=== PATIENT | male | born 1935 | race Caucasian/White ===

== ENCOUNTER 2017-10-07 16:56 | Inpatient (IN) | payer BC ==
[2017-10-07] MEDS ORDERED: ONDANSETRON PF 4 MG/2 ML VIAL. (17:19)
[2017-10-07] MEDS: ONDANSETRON PF 4 MG/2 ML VIAL. IV ×2 (17:34→18:00)
[2017-10-07 17:54] LABS: ADD MAN DIFF? NO
[2017-10-07 17:56] LABS: BASO # 0.1 x10^3/uL (0.0-0.2); BASO % 1 % (0-3); EOS % 0 % (0-3); HEMATOCRIT 43.1 % (39.0-53.0); HEMOGLOBIN 14.3 g/dL (13.0-17.5); LYMPH # 1.2 x10^3/uL (1.0-4.8); LYMPH % 9 % (24-48); MEAN CORPUSCULAR HEMOGLOBIN 29 pg (25-35); MEAN CORPUSCULAR HGB CONC 33 g/dL (31-37); MEAN CORPUSCULAR VOLUME 87 fL (79-100); MONO # 0.8 x10^3/uL (0.0-1.1); MONO % 6 % (0-9); NEUT # 11.4 x10^3uL (1.8-7.7); NEUT % 84 % (31-73); PLATELET COUNT 222 x10^3/uL (140-400); RED BLOOD COUNT 4.95 x10^6/uL (4.30-5.70); RED CELL DISTRIBUTION WIDTH 14.9 % (11.5-14.5); WHITE BLOOD COUNT 13.5 x10^3/uL (4.0-11.0)
[2017-10-07] MEDS: FAMOTIDINE 20 MG/2 ML VIAL IVP (18:05)
[2017-10-07 18:06] LABS: ANION GAP 15 (6-14); BLOOD UREA NITROGEN 22 mg/dL (8-26); BUN/CREATININE RATIO 22 (6-20); CALCIUM 9.5 mg/dL (8.5-10.1); CARBON DIOXIDE 25 mmol/L (21-32); CHLORIDE 101 mmol/L (98-107); GFR 71.2; GLUCOSE 206 mg/dL (70-99); POTASSIUM 3.4 mmol/L (3.5-5.1); SODIUM 141 mmol/L (136-145)
[2017-10-07] MEDS: IV NORMAL SALINE 1000ML BAG 1,000 ML IV ×2 (18:06→19:57)
[2017-10-07] MEDS: fentaNYL PF VIAL 100 MCG/2 ML VIAL IV ×3 (18:07→23:12)
[2017-10-07 18:12] LABS: ALBUMIN 3.7 g/dL (3.4-5.0); ALBUMIN/GLOBULIN RATIO 0.8 (1.0-1.7); ALK PHOS 88 U/L (46-116); ALT (SGPT) 23 U/L (16-63); AST (SGOT) 18 U/L (15-37); LIPASE 34 U/L (73-393); TOTAL BILIRUBIN 0.3 mg/dL (0.2-1.0); TOTAL PROTEIN 8.3 g/dL (6.4-8.2)
[2017-10-07 18:15] LABS: LACTIC ACID 2.2 mmol/L (0.4-2.0)
[2017-10-07] MEDS: IOHEXOL 300 MG/ML 100ML VIAL. IV (19:15)
[2017-10-07 20:23] LABS: CLARITY,URINE CLOUDY; COLOR,URINE GREEN; GLUCOSE,URINE NEGATIVE (NEG); NITRITE,URINE NEGATIVE (NEG); PH,URINE 8.5; PROTEIN,URINE >=300 mg/dL (NEG-TRACE)
[2017-10-07 20:26] LABS: BACTERIA,URINE MANY /HPF (0-FEW)
[2017-10-07 20:27] LABS: BILIRUBIN,URINE NEGATIVE (NEG)
[2017-10-07] MEDS ORDERED: PIP/TAZO PER PHARMACY MC (21:00)
[2017-10-07] MEDS ORDERED: fentaNYL PF VIAL 100 MCG/2 ML VIAL IV (21:00)
[2017-10-07] MEDS ORDERED: ONDANSETRON PF 4 MG/2 ML VIAL. IV (21:00)
[2017-10-07] MEDS ORDERED: ACETAMINOPHEN 325 MG TABLET. PO (21:00)
[2017-10-07] MEDS: PIPERACILLIN/TAZOBACTAM 4.5 GM in IV NORMAL SALINE 100ML 100 ML IV (21:44)
[2017-10-07 22:05] LABS: LACTIC ACID 1.5 mmol/L (0.4-2.0)
[2017-10-08] MEDS: PIPERACILLIN/TAZOBACTAM 3.375 GM in IV NORMAL SALINE 50ML 50 ML IV ×3 (05:35→18:27)
[2017-10-08 05:50] LABS: ADD MAN DIFF? NO
[2017-10-08 06:11] LABS: BASO % 0 % (0-3); EOS % 0 % (0-3); HEMATOCRIT 42.6 % (39.0-53.0); LYMPH # 0.7 x10^3/uL (1.0-4.8); LYMPH % 13 % (24-48); MEAN CORPUSCULAR HEMOGLOBIN 29 pg (25-35); MEAN CORPUSCULAR HGB CONC 33 g/dL (31-37); MEAN CORPUSCULAR VOLUME 89 fL (79-100); MONO # 0.7 x10^3/uL (0.0-1.1); MONO % 14 % (0-9); NEUT # 4.1 x10^3uL (1.8-7.7); NEUT % 74 % (31-73); PLATELET COUNT 138 x10^3/uL (140-400); RED BLOOD COUNT 4.79 x10^6/uL (4.30-5.70); RED CELL DISTRIBUTION WIDTH 14.9 % (11.5-14.5); WHITE BLOOD COUNT 5.5 x10^3/uL (4.0-11.0)
[2017-10-08 08:33] LABS: ANION GAP 10 (6-14); BLOOD UREA NITROGEN 25 mg/dL (8-26); CALCIUM 8.8 mg/dL (8.5-10.1); CARBON DIOXIDE 28 mmol/L (21-32); CHLORIDE 104 mmol/L (98-107); GFR 71.2; GLUCOSE 183 mg/dL (70-99); POTASSIUM 3.6 mmol/L (3.5-5.1); SODIUM 142 mmol/L (136-145)
[2017-10-08] MEDS: POTASSIUM CL 20MEQ-0.45% NACL 1,000 ML IV (10:15)
[2017-10-08] MEDS ORDERED: ONDANSETRON PF 4 MG/2 ML VIAL. IV (10:15)
[2017-10-08] MEDS: fentaNYL PF VIAL 100 MCG/2 ML VIAL IV (13:55)
[2017-10-08] MEDS: FAMOTIDINE 20 MG/2 ML VIAL IVP (20:29)
[2017-10-09] MEDS: PIPERACILLIN/TAZOBACTAM 3.375 GM in IV NORMAL SALINE 50ML 50 ML IV ×3 (00:17→11:59)
[2017-10-09 07:33] LABS: POC GLUCOSE 128 mg/dL (70-99)
[2017-10-09 11:19] LABS: POC GLUCOSE 183 mg/dL (70-99)
[2017-10-09 16:31] LABS: POC GLUCOSE 166 mg/dL (70-99)
== END 2017-10-09 17:00 | disposition home or self-care (01) | DRG 872 ==
LOC: ER 16:56 → 5 SOUTH 20:08
DX: A41.9 Sepsis, unspecified organism (principal); K56.609 Unspecified intestinal obstruction, unspecified as to partial versus complete obstruction; E11.65 Type 2 diabetes mellitus with hyperglycemia; N39.0 Urinary tract infection, site not specified; Z68.41 Body mass index [BMI] 40.0-44.9, adult; R65.20 Severe sepsis without septic shock; I10 Essential (primary) hypertension; I25.10 Atherosclerotic heart disease of native coronary artery without angina pectoris; Z82.49 Family history of ischemic heart disease and other diseases of the circulatory system; Z85.038 Personal history of other malignant neoplasm of large intestine; Z85.46 Personal history of malignant neoplasm of prostate; E66.9 Obesity, unspecified; Z60.2 Problems related to living alone
CPT/HCPCS: 36415; 74022; 74177; 80048; 80053; 81001; 82962; 83605; 83690; 85025; 87040; 87086; 87186; 93005; J2405; J2543; J3010; J7030; Q9967; S0028

== ENCOUNTER 2017-10-14 02:19 | Inpatient (IN) | payer BC ==
[2017-10-14 03:19] LABS: ADD MAN DIFF? NO
[2017-10-14 03:22] LABS: BASO # 0.1 x10^3/uL (0.0-0.2); BASO % 1 % (0-3); EOS # 0.2 x10^3/uL (0.0-0.7); EOS % 2 % (0-3); HEMATOCRIT 39.7 % (39.0-53.0); LYMPH # 1.7 x10^3/uL (1.0-4.8); LYMPH % 15 % (24-48); MEAN CORPUSCULAR HEMOGLOBIN 29 pg (25-35); MEAN CORPUSCULAR HGB CONC 33 g/dL (31-37); MEAN CORPUSCULAR VOLUME 87 fL (79-100); MONO # 0.9 x10^3/uL (0.0-1.1); MONO % 8 % (0-9); NEUT # 8.6 x10^3uL (1.8-7.7); NEUT % 75 % (31-73); PLATELET COUNT 202 x10^3/uL (140-400); RED BLOOD COUNT 4.54 x10^6/uL (4.30-5.70); WHITE BLOOD COUNT 11.4 x10^3/uL (4.0-11.0)
[2017-10-14] MEDS ORDERED: ONDANSETRON PF 4 MG/2 ML VIAL. (03:34)
[2017-10-14 03:35] LABS: ANION GAP 11 (6-14); BLOOD UREA NITROGEN 14 mg/dL (8-26); BUN/CREATININE RATIO 18 (6-20); CARBON DIOXIDE 26 mmol/L (21-32); CHLORIDE 102 mmol/L (98-107); CREATININE 0.8 mg/dL (0.7-1.3); GFR 92.1; GLUCOSE 189 mg/dL (70-99); POTASSIUM 3.8 mmol/L (3.5-5.1); SODIUM 139 mmol/L (136-145)
[2017-10-14] MEDS: MORPHINE SULFATE 10 MG/ML VIAL. IV (03:37)
[2017-10-14] MEDS: ONDANSETRON PF 4 MG/2 ML VIAL. IV ×3 (03:38→21:13)
[2017-10-14 03:41] LABS: LACTIC ACID 1.1 mmol/L (0.4-2.0)
[2017-10-14 03:48] LABS: ALBUMIN 3.2 g/dL (3.4-5.0); ALBUMIN/GLOBULIN RATIO 0.8 (1.0-1.7); ALK PHOS 84 U/L (46-116); ALT (SGPT) 24 U/L (16-63); AST (SGOT) 23 U/L (15-37); LIPASE 35 U/L (73-393); TOTAL BILIRUBIN 0.3 mg/dL (0.2-1.0); TOTAL PROTEIN 7.4 g/dL (6.4-8.2)
[2017-10-14 04:48] LABS: BILIRUBIN,URINE NEGATIVE (NEG); CLARITY,URINE CLEAR; COLOR,URINE YELLOW; GLUCOSE,URINE NEGATIVE (NEG); NITRITE,URINE NEGATIVE (NEG); PROTEIN,URINE NEGATIVE (NEG-TRACE)
[2017-10-14 04:56] LABS: BACTERIA,URINE FEW /HPF (0-FEW); RBC,URINE 0 /HPF (0-2)
[2017-10-14 04:57] LABS: SQUAMOUS EPITHELIAL CELL,UR OCC /LPF
[2017-10-14] MEDS: IV NORMAL SALINE 1000ML BAG 1,000 ML IV (05:45)
[2017-10-14 05:50] LABS: POC GLUCOSE 173 mg/dL (70-99)
[2017-10-14] MEDS: MORPHINE SULFATE 4 MG/ML DISP.SYRIN. IV ×4 (08:08→21:14)
[2017-10-15] MEDS: hydrALAZINE 20 MG/ML VIAL. IVP (00:09)
[2017-10-15 04:13] LABS: ADD MAN DIFF? NO
[2017-10-15 04:28] LABS: BASO % 0 % (0-3); EOS # 0.1 x10^3/uL (0.0-0.7); EOS % 1 % (0-3); HEMATOCRIT 37.9 % (39.0-53.0); HEMOGLOBIN 12.5 g/dL (13.0-17.5); LYMPH # 1.1 x10^3/uL (1.0-4.8); LYMPH % 14 % (24-48); MEAN CORPUSCULAR HEMOGLOBIN 29 pg (25-35); MEAN CORPUSCULAR HGB CONC 33 g/dL (31-37); MEAN CORPUSCULAR VOLUME 88 fL (79-100); MONO # 0.9 x10^3/uL (0.0-1.1); MONO % 12 % (0-9); NEUT # 5.5 x10^3uL (1.8-7.7); NEUT % 72 % (31-73); PLATELET COUNT 177 x10^3/uL (140-400); RED BLOOD COUNT 4.33 x10^6/uL (4.30-5.70); RED CELL DISTRIBUTION WIDTH 14.9 % (11.5-14.5); WHITE BLOOD COUNT 7.6 x10^3/uL (4.0-11.0)
[2017-10-15 04:35] LABS: ANION GAP 4 (6-14); BLOOD UREA NITROGEN 14 mg/dL (8-26); CALCIUM 8.7 mg/dL (8.5-10.1); CARBON DIOXIDE 29 mmol/L (21-32); CHLORIDE 103 mmol/L (98-107); CREATININE 0.8 mg/dL (0.7-1.3); GFR 92.1; GLUCOSE 183 mg/dL (70-99); POTASSIUM 3.6 mmol/L (3.5-5.1); SODIUM 136 mmol/L (136-145)
[2017-10-15] MEDS: MORPHINE SULFATE 4 MG/ML DISP.SYRIN. IV ×3 (04:39→16:54)
[2017-10-15] MEDS: FAMOTIDINE 20 MG/2 ML VIAL IVP ×2 (06:23→23:10)
[2017-10-15] MEDS: IV NORMAL SALINE 1000ML BAG 1,000 ML IV (16:48)
[2017-10-16] MEDS: MORPHINE SULFATE 4 MG/ML DISP.SYRIN. IV ×2 (02:04→07:54)
[2017-10-16] MEDS: IV NORMAL SALINE 1000ML BAG 1,000 ML IV ×3 (03:00→23:00)
[2017-10-16] MEDS: FAMOTIDINE 20 MG/2 ML VIAL IVP ×2 (08:40→21:00)
[2017-10-16] MEDS: ENOXAPARIN 40 MG/0.4 ML SYRINGE. SQ (08:40)
[2017-10-16] MEDS ORDERED: CONTRAST GIVEN MC (09:30)
[2017-10-16] MEDS: IOHEXOL 300 MG/ML 100ML VIAL. PO (10:57)
[2017-10-17] MEDS: FAMOTIDINE 20 MG/2 ML VIAL IVP ×2 (08:20→21:04)
[2017-10-17] MEDS: ENOXAPARIN 40 MG/0.4 ML SYRINGE. SQ ×2 (08:21→21:03)
[2017-10-17] MEDS: IV NORMAL SALINE 1000ML BAG 1,000 ML IV ×2 (08:22→15:11)
[2017-10-17 10:30] LABS: ANION GAP 11 (6-14); BLOOD UREA NITROGEN 24 mg/dL (8-26); CALCIUM 8.7 mg/dL (8.5-10.1); CARBON DIOXIDE 28 mmol/L (21-32); CHLORIDE 101 mmol/L (98-107); CREATININE 0.9 mg/dL (0.7-1.3); GFR 80.4; GLUCOSE 159 mg/dL (70-99); POTASSIUM 3.1 mmol/L (3.5-5.1); SODIUM 140 mmol/L (136-145)
[2017-10-17] MEDS: MORPHINE SULFATE 4 MG/ML DISP.SYRIN. IV (15:21)
[2017-10-18] MEDS: IV NORMAL SALINE 1000ML BAG 1,000 ML IV (03:10)
[2017-10-18] MEDS: FAMOTIDINE 20 MG/2 ML VIAL IVP ×2 (08:13→20:16)
[2017-10-18] MEDS: ENOXAPARIN 40 MG/0.4 ML SYRINGE. SQ ×2 (08:13→20:16)
[2017-10-18] MEDS: MORPHINE SULFATE 4 MG/ML DISP.SYRIN. IV (08:13)
[2017-10-18 08:27] LABS: ANION GAP 14 (6-14); BLOOD UREA NITROGEN 24 mg/dL (8-26); CALCIUM 8.4 mg/dL (8.5-10.1); CARBON DIOXIDE 26 mmol/L (21-32); CHLORIDE 105 mmol/L (98-107); CREATININE 0.9 mg/dL (0.7-1.3); GFR 80.4; GLUCOSE 143 mg/dL (70-99); POTASSIUM 3.2 mmol/L (3.5-5.1); SODIUM 145 mmol/L (136-145)
[2017-10-18] MEDS: POTASSIUM CL 30MEQ D5-0.45NACL 1,000 ML IV (12:17)
[2017-10-18 15:23] LABS: ADD MAN DIFF? NO
[2017-10-18 15:30] LABS: BASO # 0.1 x10^3/uL (0.0-0.2); BASO % 1 % (0-3); EOS # 0.1 x10^3/uL (0.0-0.7); EOS % 1 % (0-3); HEMATOCRIT 36.4 % (39.0-53.0); HEMOGLOBIN 12.1 g/dL (13.0-17.5); LYMPH # 1.5 x10^3/uL (1.0-4.8); LYMPH % 13 % (24-48); MEAN CORPUSCULAR HEMOGLOBIN 29 pg (25-35); MEAN CORPUSCULAR HGB CONC 33 g/dL (31-37); MEAN CORPUSCULAR VOLUME 87 fL (79-100); MONO # 0.8 x10^3/uL (0.0-1.1); MONO % 7 % (0-9); NEUT # 8.8 x10^3uL (1.8-7.7); NEUT % 78 % (31-73); PLATELET COUNT 203 x10^3/uL (140-400); RED CELL DISTRIBUTION WIDTH 14.3 % (11.5-14.5); WHITE BLOOD COUNT 11.4 x10^3/uL (4.0-11.0)
[2017-10-18 15:35] LABS: C-REACTIVE PROTEIN 103.6 mg/L (0-3.3)
[2017-10-18 16:46] LABS: SEDIMENTATION RATE 95 (0-15)
[2017-10-19] MEDS: POTASSIUM CL 30MEQ D5-0.45NACL 1,000 ML IV ×2 (03:18→15:46)
[2017-10-19 04:16] LABS: ADD MAN DIFF? NO
[2017-10-19 05:10] LABS: BASO % 1 % (0-3); EOS # 0.3 x10^3/uL (0.0-0.7); EOS % 3 % (0-3); HEMATOCRIT 35.2 % (39.0-53.0); HEMOGLOBIN 11.5 g/dL (13.0-17.5); LYMPH # 1.5 x10^3/uL (1.0-4.8); LYMPH % 18 % (24-48); MEAN CORPUSCULAR HEMOGLOBIN 29 pg (25-35); MEAN CORPUSCULAR HGB CONC 33 g/dL (31-37); MEAN CORPUSCULAR VOLUME 87 fL (79-100); MONO # 0.8 x10^3/uL (0.0-1.1); MONO % 9 % (0-9); NEUT # 5.7 x10^3uL (1.8-7.7); NEUT % 69 % (31-73); PLATELET COUNT 191 x10^3/uL (140-400); RED BLOOD COUNT 4.02 x10^6/uL (4.30-5.70); RED CELL DISTRIBUTION WIDTH 14.1 % (11.5-14.5); WHITE BLOOD COUNT 8.3 x10^3/uL (4.0-11.0)
[2017-10-19 05:36] LABS: ANION GAP 9 (6-14); BLOOD UREA NITROGEN 19 mg/dL (8-26); CARBON DIOXIDE 27 mmol/L (21-32); CHLORIDE 107 mmol/L (98-107); CREATININE 0.8 mg/dL (0.7-1.3); GFR 92.1; GLUCOSE 168 mg/dL (70-99); SODIUM 143 mmol/L (136-145)
[2017-10-19 05:41] LABS: POTASSIUM 2.9 mmol/L (3.5-5.1)
[2017-10-19] MEDS: POTASSIUM CL 40MEQ IN 0.9%NACL 1,000 ML IV (07:29)
[2017-10-19] MEDS: FAMOTIDINE 20 MG/2 ML VIAL IVP ×2 (08:28→20:50)
[2017-10-19] MEDS: ENOXAPARIN 40 MG/0.4 ML SYRINGE. SQ ×2 (08:28→20:50)
[2017-10-20] MEDS: POTASSIUM CL 30MEQ D5-0.45NACL 1,000 ML IV ×2 (04:30→11:41)
[2017-10-20 05:09] LABS: ADD MAN DIFF? NO
[2017-10-20 05:18] LABS: BASO # 0.1 x10^3/uL (0.0-0.2); BASO % 1 % (0-3); EOS # 0.5 x10^3/uL (0.0-0.7); EOS % 7 % (0-3); HEMATOCRIT 32.6 % (39.0-53.0); HEMOGLOBIN 10.8 g/dL (13.0-17.5); LYMPH # 1.5 x10^3/uL (1.0-4.8); LYMPH % 21 % (24-48); MEAN CORPUSCULAR HEMOGLOBIN 29 pg (25-35); MEAN CORPUSCULAR HGB CONC 33 g/dL (31-37); MEAN CORPUSCULAR VOLUME 87 fL (79-100); MONO # 0.7 x10^3/uL (0.0-1.1); MONO % 9 % (0-9); NEUT # 4.7 x10^3uL (1.8-7.7); NEUT % 63 % (31-73); PLATELET COUNT 190 x10^3/uL (140-400); RED BLOOD COUNT 3.74 x10^6/uL (4.30-5.70); RED CELL DISTRIBUTION WIDTH 14.1 % (11.5-14.5); WHITE BLOOD COUNT 7.4 x10^3/uL (4.0-11.0)
[2017-10-20 05:45] LABS: ALBUMIN 2.2 g/dL (3.4-5.0); ALBUMIN/GLOBULIN RATIO 0.6 (1.0-1.7); ALK PHOS 62 U/L (46-116); ALT (SGPT) 25 U/L (16-63); ANION GAP 7 (6-14); AST (SGOT) 20 U/L (15-37); BLOOD UREA NITROGEN 13 mg/dL (8-26); BUN/CREATININE RATIO 19 (6-20); CARBON DIOXIDE 28 mmol/L (21-32); CHLORIDE 106 mmol/L (98-107); CREATININE 0.7 mg/dL (0.7-1.3); GFR 107.4; GLUCOSE 154 mg/dL (70-99); POTASSIUM 3.3 mmol/L (3.5-5.1); SODIUM 141 mmol/L (136-145); TOTAL BILIRUBIN 0.4 mg/dL (0.2-1.0); TOTAL PROTEIN 6.1 g/dL (6.4-8.2)
[2017-10-20] MEDS: FAMOTIDINE 20 MG/2 ML VIAL IVP ×2 (08:40→21:00)
[2017-10-20] MEDS: ENOXAPARIN 40 MG/0.4 ML SYRINGE. SQ ×2 (08:40→22:11)
[2017-10-20] MEDS ORDERED: ELECTROLYTE (NON-ICU) PROTOCOL MC (13:30)
[2017-10-20] MEDS: FAMOTIDINE 20 MG TABLET. PO (22:11)
[2017-10-21 05:06] LABS: ADD MAN DIFF? NO
[2017-10-21 05:13] LABS: BASO % 1 % (0-3); EOS # 0.4 x10^3/uL (0.0-0.7); EOS % 7 % (0-3); HEMATOCRIT 34.2 % (39.0-53.0); HEMOGLOBIN 11.4 g/dL (13.0-17.5); LYMPH # 1.5 x10^3/uL (1.0-4.8); LYMPH % 27 % (24-48); MEAN CORPUSCULAR HEMOGLOBIN 29 pg (25-35); MEAN CORPUSCULAR HGB CONC 33 g/dL (31-37); MEAN CORPUSCULAR VOLUME 87 fL (79-100); MONO # 0.6 x10^3/uL (0.0-1.1); MONO % 10 % (0-9); NEUT # 3.3 x10^3uL (1.8-7.7); NEUT % 57 % (31-73); PLATELET COUNT 200 x10^3/uL (140-400); RED BLOOD COUNT 3.95 x10^6/uL (4.30-5.70); RED CELL DISTRIBUTION WIDTH 13.9 % (11.5-14.5); WHITE BLOOD COUNT 5.8 x10^3/uL (4.0-11.0)
[2017-10-21 05:30] LABS: ANION GAP 8 (6-14); BLOOD UREA NITROGEN 7 mg/dL (8-26); CALCIUM 8.2 mg/dL (8.5-10.1); CARBON DIOXIDE 28 mmol/L (21-32); CHLORIDE 107 mmol/L (98-107); CREATININE 0.7 mg/dL (0.7-1.3); GFR 107.4; GLUCOSE 156 mg/dL (70-99); POTASSIUM 3.6 mmol/L (3.5-5.1); SODIUM 143 mmol/L (136-145)
[2017-10-21] MEDS: FAMOTIDINE 20 MG TABLET. PO ×2 (09:10→20:38)
[2017-10-21] MEDS: ENOXAPARIN 40 MG/0.4 ML SYRINGE. SQ ×2 (09:10→20:38)
[2017-10-21] MEDS: POTASSIUM CHLORIDE 20 MEQ TABLET.ER. PO ×2 (09:10→17:26)
[2017-10-21] MEDS: POLYETHYLENE GLYCOL 3350 17 GM PACKET. PO (10:23)
[2017-10-21] MEDS: hydrALAZINE 25 MG TABLET PO (20:38)
[2017-10-22] MEDS: FAMOTIDINE 20 MG TABLET. PO (09:10)
[2017-10-22] MEDS: POTASSIUM CHLORIDE 20 MEQ TABLET.ER. PO (09:10)
[2017-10-22] MEDS: ATORVASTATIN CALCIUM 20 MG TABLET PO (09:11)
[2017-10-22] MEDS: LISINOPRIL 20 MG TABLET PO (09:11)
[2017-10-22] MEDS: glipiZIDE 5 MG TABLET PO (09:12)
[2017-10-22] MEDS: METOPROLOL SUCC 24HR ER 50 MG TAB.ER.24H. PO (09:12)
[2017-10-22] MEDS: hydrALAZINE 25 MG TABLET PO (09:12)
[2017-10-22] MEDS: PIOGLITAZONE 15 MG TABLET. PO (09:12)
[2017-10-22] MEDS: ENOXAPARIN 40 MG/0.4 ML SYRINGE. SQ (09:13)
[2017-10-22] MEDS: POLYETHYLENE GLYCOL 3350 17 GM PACKET. PO (09:19)
== END 2017-10-22 14:10 | disposition home health service (06) | DRG 389 ==
LOC: ER 02:19 → 4 NORTH 04:11
PROC: 0D9670Z Drainage of Stomach with Drainage Device, Via Natural or Artificial Opening (ICD-10-PCS; principal; 2017-10-15)
DX: K56.600 Partial intestinal obstruction, unspecified as to cause (principal); Z68.41 Body mass index [BMI] 40.0-44.9, adult; C61 Malignant neoplasm of prostate; E11.9 Type 2 diabetes mellitus without complications; N30.90 Cystitis, unspecified without hematuria; J98.11 Atelectasis; M79.89 Other specified soft tissue disorders; I25.10 Atherosclerotic heart disease of native coronary artery without angina pectoris; N40.0 Benign prostatic hyperplasia without lower urinary tract symptoms; M79.642 Pain in left hand; E66.9 Obesity, unspecified; E78.5 Hyperlipidemia, unspecified; J45.909 Unspecified asthma, uncomplicated; M15.9 Polyosteoarthritis, unspecified; F80.81 Childhood onset fluency disorder; I10 Essential (primary) hypertension; Z92.21 Personal history of antineoplastic chemotherapy; Z85.46 Personal history of malignant neoplasm of prostate; Z82.49 Family history of ischemic heart disease and other diseases of the circulatory system; Z80.42 Family history of malignant neoplasm of prostate; Z90.49 Acquired absence of other specified parts of digestive tract; Z90.79 Acquired absence of other genital organ(s); Z85.038 Personal history of other malignant neoplasm of large intestine
CPT/HCPCS: 36415; 71045; 73120; 74018; 74022; 74176; 74250; 80048; 80053; 81001; 82962; 83605; 83690; 85025; 85651; 86140; 96374; 96375; 97116-GP; 97162-GP; 97166-GO; 97535-GO; 99285; 99285-25; J0360; J1650; J2270; J2405; J3480; J7030; Q9967; S0028

== ENCOUNTER 2018-09-19 13:42 | Emergency (ER) | payer BC ==
[~2018-09-19] VITALS: Ht 165.1 cm; Wt 127.0 kg
[~2018-09-19 13:42] MED LIST: ACET325T9 PO; ASPI325T8 PO; ATOR20TA58 PO; CIPR500T94 PO; EZET10TA18 PO; GLIP10TA13 PO; GLIP5TAB10 PO; HYDR-2868 PO; INSU100V13 SQ; LEUP30SY IM; LINA5TAB PO; LISI-130 PO; LOSA100T14 PO; METF10007 PO; METO-247 PO; METO-269 PO; PANT40TA77 PO; PIOG15TA42 PO; TAMS0.4C97 PO; TERA5CAP3 PO
[2018-09-19 13:52] VITALS: BP 140/44
[2018-09-19 15:16] LABS: BILIRUBIN,URINE NEGATIVE (NEG); CLARITY,URINE CLOUDY; COLOR,URINE YELLOW; NITRITE,URINE NEGATIVE (NEG); PROTEIN,URINE >=300 mg/dL (NEG-TRACE)
[2018-09-19 15:21] LABS: BACTERIA,URINE FEW /HPF (0-FEW); RBC,URINE >40 /HPF (0-2); WBC,URINE >40 /HPF (0-4)
[2018-09-19] MEDS ORDERED: CEPH-264 PO (15:40)
--- NOTE | 2018-09-19 15:41 | PHYS DOC ---
Past Medical History Past Medical History: Diabetes-Type II, Heart Disease, Hypertension, Other Additional Past Medical Histor: prostate CA with chemotherapy treatments about 4 years Past Surgical History: Other Additional Past Surgical Histo: Prostate CA surgery Alcohol Use: None Drug Use: None Adult General Chief Complaint Chief Complaint: URINARY RETENTION HPI HPI 83 y/o male presents with report of suprapubic tenderness which has been ongoing today. Hx of prior prostate cancer surgery. Patient has chronic suprapubic indwelling catheter. Reports that the catheter isn't draining. Denies fever/chills. Denies trauma. Denies hematuria. Patient is to follow up with Urology on Thursday to have catheter replaced. Review of Systems Review of Systems Constitutional: Denies fever or chills [] Eyes: Denies change in visual acuity, redness, or eye pain [] HENT: Denies nasal congestion or sore throat [] Respiratory: Denies cough or shortness of breath [] Cardiovascular: Denies chest pain or palpitation GI: Reports suprapubic abdominal pain/pressure; denies nausea, vomiting, or diarrhea [] : Reports decreased urination and some dysuria; denies hematuria [] Musculoskeletal: Denies back pain or joint pain [] Integument: Denies rash or skin lesions [] Neurologic: Denies headache, focal weakness or sensory changes [] Complete systems were reviewed and found to be within normal limits, except as documented in this note. Current Medications Current Medications Current Medications Medications (Trade) Dose Ordered Sig/Althea Start Time Stop Time Status Last Admin Dose Admin Cephalexin HCl (Keflex) 500 mg 1X ONCE 09/19/18 16:00 09/19/18 16:00 DC 09/19/18 15:48 500 MG Allergies Allergies Allergies Coded Allergies Type Severity Reaction Last Updated Verified No Known Drug Allergies 10/07/17 No Physical Exam Physical Exam Constitutional: Well developed, well nourished, uncomfortable, non-toxic appearance. [] HENT: Normocephalic, atraumatic, oropharynx moist Eyes: Conjunctiva normal, no discharge. [] Neck: Normal range of motion, no tenderness, supple[] Cardiovascular: Heart rate regular rhythm Lungs & Thorax: Bilateral breath sounds clear to auscultation [] Abdomen: Soft but some fullness to suprapubic region, suprapubic tenderness noted, indwelling suprapubic cath noted Skin: Warm, dry, no erythema, no rash. [] Extremities: No tenderness, ROM intact Neurologic: Alert and oriented X 3, no focal deficits noted. [] Psychologic: Affect normal, judgement normal, mood normal. [] Current Patient Data Vital Signs Lab Values Laboratory Tests Test 09/19/18 15:08 Urine Collection Type Unknown Urine Color Yellow Urine Clarity Cloudy Urine pH 7.0 Urine Specific [place] 1.020 Urine Protein >=300 mg/dL (NEG-TRACE) Urine Glucose (UA) 100 mg/dL (NEG) Urine Ketones (Stick) Negative mg/dL (NEG) Urine Blood Large (NEG) Urine Nitrite Negative (NEG) Urine Bilirubin Negative (NEG) Urine Urobilinogen Dipstick 1.0 mg/dL (0.2 mg/dL) Urine Leukocyte Esterase Large (NEG) Urine RBC >40 /HPF (0-2) Urine WBC >40 /HPF (0-4) Urine Bacteria Few /HPF (0-FEW) Microbiology 09/19/18 Urine Culture - Final, Complete 09/19/18 Urine Culture Result 1 (BRIDGER) - Final, Complete 09/19/18 Antimicrobic Susceptibility - Final, Complete EKG EKG [] Radiology/Procedures Radiology/Procedures [] Course & Med Decision Making Course & Med Decision Making Pertinent Labs reviewed. (See chart for details) Patient presents with concern for urinary retention despite indwelling suprapubic catheter. Suprapubic fullness tenderness noted. Cath exchanged. UA with signs of infection. Empiric antibiotics given. Patient stable for discharge home with outpatient follow-up with PCP/Urologist. Discussed findings and plan with patient and family, who acknowledge understanding and agreement. Dragon Disclaimer Dragon Disclaimer This electronic medical record was generated, in whole or in part, using a voice recognition dictation system. Departure Departure Impression: Primary Impression: Complicated urinary tract infection Disposition: 01 HOME, SELF-CARE Condition: STABLE Referrals: BRENDA ABRAMS MD (PCP) ANTHONY BECERRA MD Patient Instructions: Catheter-Associated Urinary Tract Infection FAQs - SIEGEL, Suprapubic Catheter Replacement, Care After Scripts Cephalexin (KEFLEX) 500 Mg Capsule 500 MG PO TID for 7 Days, #21 CAP Prov: MARILEE MASSEY DO 09/19/18 MARILEE MASSEY DO Sep 19, 2018 15:40
[2018-09-19] MEDS ORDERED: CEPHALEXIN 250 MG CAPSULE. PO ONE (16:00)
== END 2018-09-19 15:55 | disposition home or self-care (01) ==
LOC: ER 13:42
DX: N39.0 Urinary tract infection, site not specified (principal); E11.9 Type 2 diabetes mellitus without complications; I11.9 Hypertensive heart disease without heart failure
CPT/HCPCS: 51705; 81001; 87086; 87186; 99284

== ENCOUNTER 2019-03-19 17:43 | Emergency (ER) | payer BC ==
[~2019-03-19] VITALS: Ht 170.2 cm; Wt 124.7 kg
[~2019-03-19 17:43] MED LIST changes: +CEPH-264 PO
[2019-03-19 17:58] VITALS: BP 140/44
--- NOTE | 2019-03-19 18:27 | PHYS DOC ---
Past Medical History Past Medical History: Diabetes-Type II, Heart Disease, Hypertension, Other Additional Past Medical Histor: prostate CA with chemotherapy treatments about 4 years (CHELO CABRERA APRN) Past Surgical History: Other Additional Past Surgical Histo: Prostate CA surgery (CHELO CABRERA APRN) Alcohol Use: None Drug Use: None (CHELO CABRERA APRN) Adult General Chief Complaint Chief Complaint: URINE CATHETER PROBLEM HPI HPI Patient is a 83 year old male who presents to the emergency department with request for his suprapubic catheter to be replaced. Patient states he was playing with his Home when his suprapubic catheter accidentally got ripped out. He denies any abdominal pain, nausea, vomiting, diarrhea, back pain, fever, s hortness breath, or wheezing. He denies any pain at this time. (CHELO CABRERA APRN) Review of Systems Review of Systems Constitutional: Denies fever or chills [] HENT: Denies nasal congestion or sore throat [] Respiratory: Denies cough or shortness of breath [] Cardiovascular: No additional information not addressed in HPI [] GI: Denies abdominal pain, nausea, vomiting, bloody stools or diarrhea [] : See history of present illness Musculoskeletal: Denies back pain Integument: Denies rash or skin lesions [] Neurologic: Denies headache, focal weakness or sensory changes [] Complete systems were reviewed and found to be within normal limits, except as documented in this note. (CHELO CABRERA APRN) Allergies Allergies Allergies Coded Allergies Type Severity Reaction Last Updated Verified No Known Drug Allergies 10/07/17 No (MARILEE MASSEY DO) Physical Exam Physical Exam Constitutional: Well developed, well nourished, no acute distress, non-toxic appearance, obese. [] HENT: Normocephalic, atraumatic, bilateral external ears normal, oropharynx moist, no oral exudates, nose normal. [] Eyes: conjunctiva normal, no discharge. [] Neck: Normal range of motion, no stridor. [] Lungs & Thorax: Respirations even and unlabored, no retractions, no respiratory distress Abdomen: Soft, no tenderness, no masses, no pulsatile masses; suprapubic catheter site in lower right abdomen, no bleeding no drainage [] Skin: Warm, dry, no erythema, no rash. [] Extremities: No cyanosis, ROM intact, Neurologic: Alert and oriented X 3, no focal deficits noted. [] Psychologic: Affect normal, judgement normal, mood normal. [] (CHELO CABRERA APRN) Current Patient Data Vital Signs Vital Signs Date Time Temp Pulse Resp B/P (MAP) Pulse Ox O2 Delivery O2 Flow Rate FiO2 03/19/19 17:58 97.3 116 20 140/44 (76) 98 Room Air 97.3 (MARILEE MASSEY DO) EKG EKG [] (CHELO CABRERA APRN) Radiology/Procedures Radiology/Procedures [] (CHELO CABRERA APRN) Course & Med Decision Making Course & Med Decision Making Pertinent Labs and Imaging studies reviewed. (See chart for details) Suprapubic catheter problem The catheter was replaced by Elton FERRER. 350 ml of urine drained from bladder. Pt tolerated procedure without complications. Follow up with primary care doctor as needed. Patient verbalized an understanding of home care, follow-up, and return to ED instructions and was in agreement with the plan of care. [] (CHELO CABRERA APRN) Dragon Disclaimer Dragon Disclaimer This electronic medical record was generated, in whole or in part, using a voice recognition dictation system. (CHELO CABRERA APRN) Departure Departure Impression: Primary Impression: Suprapubic catheter Additional Impression: Farr catheter problem Disposition: 01 HOME, SELF-CARE Condition: STABLE Referrals: BRENDA ABRAMS MD (PCP) Patient Instructions: Suprapubic Catheter Replacement, Care After Additional Instructions: Follow up with your doctor as needed. Attending Signature Attending Signature I have reviewed the PA/FIRE ALARM DISPATCHER's note and plan of care. I was available for consultation as needed during the patient's visit in the emergency department. I agree with the clinical impression, plan, and disposition. (MARILEE MASSEY DO) Problem Qualifiers Additional Impression: Farr catheter problem Encounter type: initial encounter Qualified Codes: T83.9XXA - Unspecified complication of genitourinary prosthetic device, implant and graft, initial encounter CHELO CABRERA APRN Mar 19, 2019 18:27 MARILEE MASSEY DO Mar 20, 2019 01:26
== END 2019-03-19 18:28 | disposition home or self-care (01) ==
LOC: ER 17:43
DX: Z46.6 Encounter for fitting and adjustment of urinary device (principal); I11.9 Hypertensive heart disease without heart failure; E11.9 Type 2 diabetes mellitus without complications; Z98.890 Other specified postprocedural states
CPT/HCPCS: 51705; 99284-25

== ENCOUNTER 2019-03-20 07:20 | Emergency (ER) | payer BC ==
[~2019-03-20] VITALS: Ht 170.2 cm; Wt 119.8 kg
[2019-03-20 07:30] VITALS: BP 167/72
--- NOTE | 2019-03-20 07:46 | PHYS DOC ---
Past Medical History Past Medical History: Diabetes-Type II, Heart Disease, Hypertension, Other Additional Past Medical Histor: prostate CA with chemotherapy treatments about 4 years Past Surgical History: Other Additional Past Surgical Histo: Prostate CA surgery Alcohol Use: None Drug Use: None Adult General Chief Complaint Chief Complaint: URINE CATHETER PROBLEM [facility] HPI Patient is a 83 year old male with indwelling suprapubic catheter for 7 year who presents with complaining of suprapubic catheter is out of the place. Patient states he was seen in this emergency room yesterday with replacement of his catheter but the catheter came out this morning taken. Patient denies fever and chills, nausea or vomiting. Review of Systems Review of Systems Constitutional: Denies fever or chills [] Eyes: Denies change in visual acuity, redness, or eye pain [] HENT: Denies nasal congestion or sore throat [] Respiratory: Denies cough or shortness of breath [] Cardiovascular: No additional information not addressed in HPI [] GI: Denies abdominal pain, nausea, vomiting, bloody stools or diarrhea [] : Denies dysuria or hematuria [] Musculoskeletal: Denies back pain or joint pain [] Integument: Denies rash or skin lesions [] Neurologic: Denies headache, focal weakness or sensory changes [] Endocrine: Denies polyuria or polydipsia [] All other systems were reviewed and found to be within normal limits, except as documented in this note. Allergies Allergies Allergies Coded Allergies Type Severity Reaction Last Updated Verified No Known Drug Allergies 10/07/17 No Physical Exam Physical Exam Constitutional: Well developed, well nourished, mild distress, non-toxic appearance. [] HENT: Normocephalic, atraumatic. Eyes: PERRLA, EOMI, conjunctiva normal, no discharge. [] Neck: Normal range of motion, no tenderness, supple, no stridor. [] Cardiovascular:Heart rate regular rhythm, no murmur [] Lungs & Thorax: Bilateral breath sounds clear to auscultation [] Abdomen: Bowel sounds normal, soft, no tenderness, no masses, no pulsatile masses. Orifice of suprapubic catheter in place, catheter is out[] Skin: Warm, dry, no erythema, no rash. [] Back: No tenderness, no CVA tenderness. [] Extremities: No tenderness, no cyanosis, no clubbing, ROM intact, no edema. [] Neurologic: Alert and oriented X 3, no focal deficits noted. [] Psychologic: Affect normal, judgement normal, mood normal. [] EKG EKG [] Radiology/Procedures Radiology/Procedures [] Course & Med Decision Making Course & Med Decision Making Evaluation of patient in ER showed 83-year-old male patient presented because did place the catheter was done in ER yesterday came out again. 16 Portuguese Farr catheter was placed as a suprapubic catheter without problem and blue was inflated. Patient was advised to follow-up with his physician for catheter care. Dragon Disclaimer Dragon Disclaimer This electronic medical record was generated, in whole or in part, using a voice recognition dictation system. Departure Departure Impression: Primary Impression: Encounter for care or replacement of suprapubic tube Disposition: HOME, SELF-CARE (At 0743) Condition: IMPROVED Referrals: BRENDA ABRAMS MD (PCP) Patient Instructions: Suprapubic Catheter Home Guide, Suprapubic Catheter Replacement, Suprapubic Catheter Replacement, Care After Additional Instructions: Follow-up with your primary care physician in 3-5 days Return to ER if not getting better SHAJI MATA MD Mar 20, 2019 07:46
[2019-03-21] MEDS ORDERED: CEPH500T PO (23:42)
[2019-03-21] MEDS ORDERED: CIPR500T PO (23:44)
[2019-03-28] MEDS ORDERED: PIOG30TA41 PO (12:28)
[2019-03-28] MEDS ORDERED: AMLO5TAB10 PO (12:28)
[2019-03-28] MEDS ORDERED: PANT20TA2 PO (12:28)
== END 2019-03-20 07:58 | disposition home or self-care (01) ==
LOC: ER 07:20
DX: Z46.6 Encounter for fitting and adjustment of urinary device (principal); E11.9 Type 2 diabetes mellitus without complications; I11.9 Hypertensive heart disease without heart failure
CPT/HCPCS: 51702; 99284

== ENCOUNTER 2019-03-21 22:46 | Emergency (ER) | payer BC ==
[~2019-03-21] VITALS: Ht 170.2 cm; Wt 117.9 kg
[2019-03-21 23:33] VITALS: BP 179/79
--- NOTE | 2019-03-21 23:34 | PHYS DOC ---
Past Medical History Past Medical History: Diabetes-Type II, Heart Disease, Hypertension, Other Additional Past Medical Histor: prostate CA with chemotherapy treatments about 4 years Past Surgical History: Other Additional Past Surgical Histo: Prostate CA surgery Alcohol Use: None Drug Use: None Adult General Chief Complaint Chief Complaint: URINE CATHETER PROBLEM [facility] HPI Patient is a 83 year old male presents with a chief complaint of the Farr suprapubic catheter was draining pretty slowly tonight. No fever he wants to see if we can drain his penisAll other ROS neg unless otherwise noted in HPI Review of Systems Review of Systems SEE ABOVE Allergies Allergies Allergies Coded Allergies Type Severity Reaction Last Updated Verified No Known Drug Allergies 10/07/17 No Physical Exam Physical Exam see above Constitutional: Well developed, well nourished, no acute distress, non-toxic appearance. [] HENT: Normocephalic, atraumatic, bilateral external ears normal, oropharynx moist, no oral exudates, nose normal. [] Eyes: PERRLA, EOMI, conjunctiva normal, no discharge. [] Neck: Normal range of motion, no tenderness, supple, no stridor. [] Pulmonary: Normal respiratory effort no increased work of breathing no obvious chest wall trauma Abdomen: Bowel sounds normal, soft, no tenderness, no masses, no pulsatile masses. [] Suprapubic catheter is in place the skin looks fine. The catheter is sort of TIED down tightly by the elastic Skin: Warm, dry, no erythema, no rash. [] Back: No tenderness, no CVA tenderness. [] Extremities: No tenderness, no cyanosis, no clubbing, ROM intact, no edema. [] Neurologic: Alert and oriented X 3, normal motor function, normal sensory function, no focal deficits noted. [] Psychologic: Affect normal, judgement normal, mood normal. [] Current Patient Data Vital Signs Vital Signs Date Time Temp Pulse Resp B/P (MAP) Pulse Ox O2 Delivery O2 Flow Rate FiO2 03/21/19 22:53 98.4 98 19 212/93 (132) 94 Room Air 98.4 EKG EKG [] Radiology/Procedures Radiology/Procedures [] Course & Med Decision Making Course & Med Decision Making Pertinent Labs and Imaging studies reviewed. (See chart for details) []Nursing staff loosen the elastic Estrada of the suprapubic catheter and immediately an entire bag of urine drained Patient felt much better. At this point nursing staff is placing a better SKIN ESTRADA in place for this suprapubic catheter and he will be discharged in improved condition Dragon Disclaimer Dragon Disclaimer This electronic medical record was generated, in whole or in part, using a voice recognition dictation system. Departure Departure Impression: Primary Impression: Suprapubic catheter Disposition: HOME, SELF-CARE Condition: STABLE Referrals: BRENDA ABRAMS MD (PCP) Patient Instructions: Suprapubic Catheter Home Guide TERENCE CARMONA MD Mar 21, 2019 23:34
[2019-03-21] MEDS ORDERED: CEPH500T PO (23:42)
[2019-03-21] MEDS ORDERED: CIPR500T PO (23:44)
[2019-03-28] MEDS ORDERED: AMLO5TAB10 PO (12:28)
[2019-03-28] MEDS ORDERED: PANT20TA2 PO (12:28)
[2019-03-28] MEDS ORDERED: PIOG30TA41 PO (12:28)
== END 2019-03-22 00:05 | disposition home or self-care (01) ==
LOC: ER 22:46
DX: T83.098A Other mechanical complication of other urinary catheter, initial encounter (principal); I11.9 Hypertensive heart disease without heart failure; E11.9 Type 2 diabetes mellitus without complications; Z98.890 Other specified postprocedural states; Y82.8 Other medical devices associated with adverse incidents; Y92.89 Other specified places as the place of occurrence of the external cause
CPT/HCPCS: 87086; 87186; 99284

== ENCOUNTER → 2019-03-28 | Day surgery (SDC) | payer BC ==
[~2019-03-28] MED LIST changes: +AMLO5TAB10 PO; +CEPH500T PO; +CIPR500T PO; +IV RINGERS,LACTATED 1000ML 1,000 ML IV SCH; +LIDOCAINE 2% PF 5 ML VIAL. ONE; +PANT20TA2 PO; +PIOG30TA41 PO; +PROPOFOL 20 ML IV ONE
--- NOTE | 2019-03-28 13:48 | PDOC4 ---
PROCEDURE Procedure Colonoscopy/biopsies Indication: h/o colon cancer; last surveillance 2015 Meds: per anesthesia Findings: JACKSON normal --'Scope advanced to ileocolostomy. Mucosa normal. Prep fair. No diverticular disease seen. --5mm polyp, distal descending and 3mm polyp, rectum, removed with jumbo forceps. --Small internal hemorrhoids. IMP: Small polyps. Hemorrhoids S/p right colectomy REC: Resume home meds and diet. Await histology. F/u with me in 2 weeks. Probably no need for further surveillance. MARILEE ALBARADO MD Mar 28, 2019 13:48
[2019-03-28 14:02] VITALS: BP 132/68
--- NOTE | 2019-03-29 17:06 | PATHOLOGY ---
[facility] Accession Number: [id number] . 01 Material submitted: . PART A: colon - DISTAL DESCENDING COLON POLYP. Modifiers: distal, descending PART B: rectum - RECTAL POLYP . 01 Clinical history: . HX colon cancer . 02 Diagnosis: A. Colon biopsies, distal descending colon polyp: - Tubular adenoma. . B. Colorectal biopsy, rectal polyp: - Hyperplastic polyp. (JPM:eric; 03/29/2019) QMS/03/29/2019 . 02 Comment: There is no high grade dysplasia or evidence of malignancy. . 02 Electronically signed: . Mika Orozco MD, Pathologist NPI- [id number] . 01 Gross description: . A. Received in formalin labeled "Wilman Jacobs, distal descending colon polyp," are 2 segments of waite soft tissue measuring 0.6 x 0.2 x 0.1 cm in aggregate dimensions and ranging from 0.2 to 0.4 cm in maximum dimension. The specimen is submitted entirely in cassette A1. . B. Received in formalin labeled "Wilman Jacobs, rectum polyp," is a single segment of waite soft tissue measuring 0.3 cm in maximum dimension. The specimen is entirely submitted in cassette B1. (TSD; 03/28/2019) TOB/TOB . 02 Pathologist provided ICD-10: D12.4, K62.1 . 02 CPT . 796726, 010246 Specimen Comment: A courtesy copy of this report has been sent to Specimen Comment: [phone], . Specimen Comment: Report sent to / DR ABRAMS Performed at: [address], [place], [place] [id number] MD Fede Kim MD Phone: [phone] Performed at: [address] [id number] MD Mika Orozco MD Phone: [phone]
== END ==
LOC: ENDOS 12:27
PROVIDERS: ATTEND Internal Medicine Gastroenterology
DX: D12.4 Benign neoplasm of descending colon (principal); K62.1 Rectal polyp; K64.0 First degree hemorrhoids; E11.9 Type 2 diabetes mellitus without complications; I10 Essential (primary) hypertension; E78.5 Hyperlipidemia, unspecified; K21.9 Gastro-esophageal reflux disease without esophagitis; Z86.010 Personal history of colon polyps; Z85.038 Personal history of other malignant neoplasm of large intestine; Z85.46 Personal history of malignant neoplasm of prostate; Z90.49 Acquired absence of other specified parts of digestive tract; Z79.84 Long term (current) use of oral hypoglycemic drugs
CPT/HCPCS: 45380; 88305; J2001; J2704

== ENCOUNTER 2019-04-03 00:13 | Emergency (ER) | payer BC ==
[~2019-04-03] VITALS: Ht 170.2 cm; Wt 122.5 kg
[~2019-04-03 00:13] MED LIST changes: -EZET10TA18 PO; +EZET10TA20 PO; -IV RINGERS,LACTATED 1000ML 1,000 ML IV SCH; -LIDOCAINE 2% PF 5 ML VIAL. ONE; -PROPOFOL 20 ML IV ONE
[2019-04-03 00:49] LABS: BILIRUBIN,URINE NEGATIVE (NEG); CLARITY,URINE CLEAR; COLOR,URINE YELLOW; NITRITE,URINE POSITIVE (NEG); PROTEIN,URINE NEGATIVE (NEG-TRACE); UROBILINOGEN,URINE 0.2 mg/dL (0.2 mg/dL)
[2019-04-03 01:07] LABS: BACTERIA,URINE MANY /HPF (0-FEW); RBC,URINE RARE /HPF (0-2); WBC,URINE TNTC /HPF (0-4)
[2019-04-03] MEDS ORDERED: CEPH-264 PO (01:52)
--- NOTE | 2019-04-03 01:52 | PHYS DOC ---
Past Medical History Past Medical History: Diabetes-Type II, Heart Disease, Hypertension, Other Additional Past Medical Histor: prostate CA with chemotherapy treatments about 4 years Past Surgical History: Other Additional Past Surgical Histo: Prostate CA surgery Alcohol Use: None Drug Use: None Adult General Chief Complaint Chief Complaint: URINARY RETENTION HPI HPI Patient is a 83 year old [f__sex] who presents with [] Review of Systems Review of Systems Constitutional: Denies fever or chills [] Eyes: Denies change in visual acuity, redness, or eye pain [] HENT: Denies nasal congestion or sore throat [] Respiratory: Denies cough or shortness of breath [] Cardiovascular: No additional information not addressed in HPI [] GI: Denies abdominal pain, nausea, vomiting, bloody stools or diarrhea [] : Denies dysuria or hematuria [] Musculoskeletal: Denies back pain or joint pain [] Integument: Denies rash or skin lesions [] Neurologic: Denies headache, focal weakness or sensory changes [] Endocrine: Denies polyuria or polydipsia [] All other systems were reviewed and found to be within normal limits, except as documented in this note. Allergies Allergies Allergies Coded Allergies Type Severity Reaction Last Updated Verified No Known Drug Allergies 03/28/19 No Physical Exam Physical Exam Constitutional: Well developed, well nourished, no acute distress, non-toxic appearance. [] HENT: Normocephalic, atraumatic, bilateral external ears normal, oropharynx moist, no oral exudates, nose normal. [] Eyes: PERRLA, EOMI, conjunctiva normal, no discharge. [] Neck: Normal range of motion, no tenderness, supple, no stridor. [] Cardiovascular:Heart rate regular rhythm, no murmur [] Lungs & Thorax: Bilateral breath sounds clear to auscultation [] Abdomen: Bowel sounds normal, soft, no tenderness, no masses, no pulsatile masses. [] Skin: Warm, dry, no erythema, no rash. [] Back: No tenderness, no CVA tenderness. [] Extremities: No tenderness, no cyanosis, no clubbing, ROM intact, no edema. [] Neurologic: Alert and oriented X 3, normal motor function, normal sensory function, no focal deficits noted. [] Psychologic: Affect normal, judgement normal, mood normal. [] Current Patient Data Vital Signs Vital Signs Date Time Temp Pulse Resp B/P (MAP) Pulse Ox O2 Delivery O2 Flow Rate FiO2 04/03/19 00:30 97.9 83 17 136/50 (78) 98 Room Air 97.9 Lab Values Laboratory Tests Test 04/03/19 00:38 Urine Collection Type Unknown Urine Color Yellow Urine Clarity Clear Urine pH 6.0 Urine Specific [place] <=1.005 Urine Protein Negative mg/dL (NEG-TRACE) Urine Glucose (UA) Negative mg/dL (NEG) Urine Ketones (Stick) Negative mg/dL (NEG) Urine Blood Negative (NEG) Urine Nitrite Positive (NEG) Urine Bilirubin Negative (NEG) Urine Urobilinogen Dipstick 0.2 mg/dL (0.2 mg/dL) Urine Leukocyte Esterase Large (NEG) Urine RBC Rare /HPF (0-2) Urine WBC Tntc /HPF (0-4) Urine Squamous Epithelial Cells None /LPF Urine Bacteria Many /HPF (0-FEW) EKG EKG [] Radiology/Procedures Radiology/Procedures [] Course & Med Decision Making Course & Med Decision Making Pertinent Labs and Imaging studies reviewed. (See chart for details) [] Dragon Disclaimer Dragon Disclaimer This electronic medical record was generated, in whole or in part, using a voice recognition dictation system. Departure Departure Impression: Primary Impression: Urinary tract infection Disposition: 01 HOME, SELF-CARE Condition: STABLE Referrals: BRENDA ABRAMS MD (PCP) JADA WHITE MD Patient Instructions: Catheter-Associated Urinary Tract Infection FAQs - SIEGEL, Indwelling Urinary Catheter Care-Brief Scripts Cephalexin (KEFLEX) 500 Mg Capsule 1 CAP PO TID for 7 Days, #21 CAP Prov: MARILEE MASSEY DO 04/03/19 Problem Qualifiers Primary Impression: Urinary tract infection Urinary tract infection type: catheter-associated UTI Indwelling urinary catheter type: unspecified Encounter type: initial encounter Qualified Codes: T83.511A - Infection and inflammatory reaction due to indwelling urethral catheter, initial encounter; N39.0 - Urinary tract infection, site not specified MARILEE MASSEY DO Apr 03, 2019 01:52
[2019-04-03] MEDS ORDERED: CEPHALEXIN 250 MG CAPSULE. PO ONE (02:00)
[2019-04-03 02:15] VITALS: BP 147/68
== END 2019-04-03 02:35 | disposition home or self-care (01) ==
LOC: ER 00:13
DX: T83.511A Infection and inflammatory reaction due to indwelling urethral catheter, initial encounter (principal); N39.0 Urinary tract infection, site not specified; E11.9 Type 2 diabetes mellitus without complications; I11.9 Hypertensive heart disease without heart failure; Z98.890 Other specified postprocedural states; Y82.8 Other medical devices associated with adverse incidents; Y92.89 Other specified places as the place of occurrence of the external cause
CPT/HCPCS: 51702; 81001; 87086; 99284

== ENCOUNTER 2019-06-02 11:17 | Inpatient (IN) | payer BC ==
[2019-06-02] VITALS (10 sets, daily range): BP systolic 127–176; BP diastolic 70–83
[~2019-06-02] VITALS: Ht 170.2 cm; Wt 118.4 kg
[2019-06-02] MEDS ORDERED: MORPHINE SULFATE 4 MG/ML VIAL. IV/SQ PRN (11:45)
[2019-06-02] MEDS ORDERED: ASPIRIN 325 MG TABLET PO ONE (11:45)
[2019-06-02] MEDS ORDERED: NITROGLYCERIN SUBLINGUAL 0.4 MG BOTTLE OF 25. SL PRN ×2 (11:45→14:30)
--- NOTE | 2019-06-02 12:10 | EKG ---
[facility] [address] [place] [address] Test Date: 2019-06-02 Test Time: 11:30:33 Pat Name: DREW ALBARADO Department: Room: Gender: M Tool Supervisor: : 1935 Requested By: YANCY ESCOTO Order Number: [id number] Reading MD: Measurements Intervals [place] Rate: 105 P: -95 DE: 124 QRS: -39 QRSD: 136 T: 30 QT: 342 QTc: 456 Interpretive Statements SINUS TACHYCARDIA ABNORMAL LEFT AXIS DEVIATION NON SPECIFIC INTRAVENTRICULAR BLOCK RVH WITH REPOLARIZATION ABNORMALITY ABNORMAL ECG RI6.01 No previous ECG available for comparison
--- NOTE | 2019-06-02 12:24 | RAD ---
PORTABLE CHEST 1V History: Chest pain Comparison: October 18, 2017 Findings: Patchy left medial basilar opacity. Linear right basilar atelectasis. Normal heart size. Bilateral glenohumeral and acromioclavicular DJD. No pneumothorax. Impression: 1. Patchy left basilar opacity, most likely atelectasis. If persistent clinical concern PA and lateral view the chest can better assess. Electronically signed by: Baron Jimenez DO (06/02/2019 12:21 PM) [facility]
--- NOTE | 2019-06-02 12:29 | PHYS DOC ---
Past Medical History Past Medical History: Diabetes-Type II, Heart Disease, Hypertension, Other Additional Past Medical Histor: prostate CA with chemotherapy treatments about 4 years Past Surgical History: Other Additional Past Surgical Histo: Prostate CA surgery Alcohol Use: None Drug Use: None Adult General Chief Complaint Chief Complaint: CHEST PAIN HPI HPI Patient is a 83 year old male with hx of DMII, HTN, CAD who presents with complains of 2/10 left-sided chest pain that began 3 days ago. Patient denies any exacerbating or relieving factors, he somehow points to the right upper quadrant stating that it is hurting as well. Denies any nausea, vomiting. Denies any shortness of breath. Review of Systems Review of Systems Constitutional: Denies fever or chills [] Eyes: Denies change in visual acuity, redness, or eye pain [] HENT: Denies nasal congestion or sore throat [] Respiratory: Denies cough or shortness of breath [] Cardiovascular: reports chest pain GI: Reports RUQ abdominal pain, denies nausea, vomiting, bloody stools or diarrhea [] : Denies dysuria or hematuria [] Musculoskeletal: Denies back pain or joint pain [] Integument: Denies rash or skin lesions [] Neurologic: Denies headache, focal weakness or sensory changes [] All All other systems were reviewed and found to be within normal limits, except as documented in this note. Current Medications Current Medications Current Medications Medications (Trade) Dose Ordered Sig/[facility] Start Time Stop Time Status Last Admin Dose Admin Aspirin (Sangita Aspirin) 325 mg 1X ONCE 06/02/19 11:45 06/02/19 11:46 DC 06/02/19 13:06 325 MG Morphine Sulfate (Morphine Sulfate) 4 mg PRN Q15MIN PRN 06/02/19 11:45 06/03/19 11:44 06/02/19 13:09 4 MG Nitroglycerin (Nitrostat) 0.4 mg PRN Q5MIN PRN 06/02/19 11:45 06/02/19 14:40 DC Allergies Allergies Allergies Coded Allergies Type Severity Reaction Last Updated Verified No Known Drug Allergies 03/28/19 No Physical Exam Physical Exam Constitutional: Well developed, well nourished, no acute distress, non-toxic appearance. [] HENT: Normocephalic, atraumatic, bilateral external ears normal, oropharynx moist, no oral exudates, nose normal. [] Eyes: PERRLA, EOMI, conjunctiva normal, no discharge. [] Neck: Normal range of motion, no tenderness, supple, no stridor. [] Cardiovascular:Heart rate regular rhythm, no murmur [] Lungs & Thorax: Bilateral breath sounds clear to auscultation [] Abdomen: Old healed midline abdominal incision. Bowel sounds normal, soft, no tenderness, no masses, no pulsatile masses. [] Skin: Warm, dry, no erythema, no rash. [] Back: No tenderness, no CVA tenderness. [] Extremities: No tenderness, no cyanosis, no clubbing, ROM intact, no edema. [] Neurologic: Alert and oriented X 3, normal motor function, normal sensory function, no focal deficits noted. [] Psychologic: Affect normal, judgement normal, mood normal. [] Current Patient Data Vital Signs Vital Signs Date Time Temp Pulse Resp B/P (MAP) Pulse Ox O2 Delivery O2 Flow Rate FiO2 06/02/19 13:10 100 18 164/84 (110) 95 Room Air 06/02/19 11:43 97.6 97.6 Lab Values Laboratory Tests Test 06/02/19 12:37 White Blood Count 8.1 x10^3/uL (4.0-11.0) Red Blood Count 4.42 x10^6/uL (4.30-5.70) Hemoglobin 13.2 g/dL (13.0-17.5) Hematocrit 39.3 % (39.0-53.0) Mean Corpuscular Volume 89 fL (79-100) Mean Corpuscular Hemoglobin 30 pg (25-35) Mean Corpuscular Hemoglobin Concent 34 g/dL (31-37) Red Cell Distribution Width 13.6 % (11.5-14.5) Platelet Count 177 x10^3/uL (140-400) Neutrophils (%) (Auto) 75 % (31-73) H Lymphocytes (%) (Auto) 15 % (24-48) L Monocytes (%) (Auto) 8 % (0-9) Eosinophils (%) (Auto) 2 % (0-3) Basophils (%) (Auto) 1 % (0-3) Neutrophils # (Auto) 6.0 x10^3/uL (1.8-7.7) Lymphocytes # (Auto) 1.2 x10^3/uL (1.0-4.8) Monocytes # (Auto) 0.6 x10^3/uL (0.0-1.1) Eosinophils # (Auto) 0.2 x10^3/uL (0.0-0.7) Basophils # (Auto) 0.1 x10^3/uL (0.0-0.2) D-Dimer (Genevieve) 0.39 ug/mlFEU (0.00-0.50) Sodium Level 137 mmol/L (136-145) Potassium Level 4.1 mmol/L (3.5-5.1) Chloride Level 99 mmol/L (98-107) Carbon Dioxide Level 30 mmol/L (21-32) Anion Gap 8 (6-14) Blood Urea Nitrogen 21 mg/dL (8-26) Creatinine 1.1 mg/dL (0.7-1.3) Estimated GFR (Cockcroft-Gault) 63.6 BUN/Creatinine Ratio 19 (6-20) Glucose Level 344 mg/dL (70-99) H Calcium Level 9.1 mg/dL (8.5-10.1) Magnesium Level 1.7 mg/dL (1.8-2.4) L Total Bilirubin 0.3 mg/dL (0.2-1.0) Aspartate Amino Transferase (AST) 14 U/L (15-37) L Alanine Aminotransferase (ALT) 15 U/L (16-63) L Alkaline Phosphatase 91 U/L (46-116) Creatine Kinase 56 U/L (39-308) Creatine Kinase MB (Mass) 1.2 ng/mL (0.0-3.6) Creatine Kinase MB Relative Index % (0-4) Troponin I Quantitative < 0.017 ng/mL (0.000-0.055) AY-Agm-L-Type Natriuretic Peptide 43 pg/mL (0-449) Total Protein 7.5 g/dL (6.4-8.2) Albumin 3.4 g/dL (3.4-5.0) Albumin/Globulin Ratio 0.8 (1.0-1.7) L Thyroid Stimulating Hormone (TSH) 3.179 uIU/mL (0.358-3.74) Laboratory Tests 06/02/19 12:37 Laboratory Tests 06/02/19 12:37 EKG EKG 1130 Interpreted by sinus tachycardia HR [address] ST elevations on aVR, V2, V3, T inversions on V1, ST inversion on lead II Radiology/Procedures Radiology/Procedures PROCEDURE: ABDOMEN LTD Right upper quadrant abdominal ultrasound History: Right upper quadrant pain. Comparison: CT abdomen and pelvis without contrast, October 14, 2017. Technique: Transabdominal ultrasound images are obtained. Findings: Study is technically difficult due to patient body habitus. The pancreas and IVC are obscured due to overlying bowel gas. Liver is normal in echogenicity. Right hepatic lobe measures 17.9 cm. Portal flow is hepatopedal. Gallbladder is contracted, limiting evaluation and accentuating wall thickness. No cholelithiasis or pericholecystic fluid is seen. Sonographic Montes sign is negative. Common bile duct caliber is normal measuring 4 mm in diameter. The right kidney measures 13 cm in length and is without evidence of obstruction. IMPRESSION: Gallbladder is contracted due to limited nothing by mouth status, otherwise normal. Electronically signed by: Ulises Barrett MD (06/02/2019 1:15 PM) [id number] DICTATED and SIGNED BY: ULISES BARRETT MD DATE: 06/02/19 1315 PROCEDURE: PORTABLE CHEST 1V PORTABLE CHEST 1V History: Chest pain Comparison: October 18, 2017 Findings: Patchy left medial basilar opacity. Linear right basilar atelectasis. Normal heart size. Bilateral glenohumeral and acromioclavicular DJD. No pneumothorax. Impression: 1. Patchy left basilar opacity, most likely atelectasis. If persistent clinical concern PA and lateral view the chest can better assess. Electronically signed by: Baron Jimenez DO (06/02/2019 12:21 PM) [facility] DICTATED and SIGNED BY: BARON JIMENEZ DO DATE: 06/02/19 1221 Course & Med Decision Making Course & Med Decision Making Pertinent Labs and Imaging studies reviewed. (See chart for details) This is a 83 yr old male with complains of chest pain for three days. 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 The HEART Score for CP Pts HEART Score for Chest Pain: HEART Score for Chest Pain Response (Comments) Value History Moderately Suspicious [address] Depression 2 Age > 65 2 Risk Factors >3 Risk Factors or Hx CAD 2 Troponin < Normal Limit 0 Total 7 Risk Factors: Risk Factors: DM, Current or recent (<one month) smoker, HTN, HLP, family history of CAD, obesity. Risk Scores: Score 0 - 3: 2.5% MACE over next 6 weeks - Discharge Home Score 4 - 6: 20.3% MACE over next 6 weeks - Admit for Clinical Observation Score 7 - 10: 72.7% MACE over next 6 weeks - Early Invasive Strategies Departure Departure Impression: Primary Impression: Chest pain Disposition: 09 ADMITTED INPATIENT Condition: STABLE Referrals: BRENDA ABRAMS MD (PCP) Problem Qualifiers Primary Impression: Chest pain Chest pain type: unspecified Qualified Codes: R07.9 - Chest pain, unspecified JEVONYANCY OCCUPATIONAL HEALTH SPECIALIST Jun 02, 2019 12:29
[2019-06-02 12:46] LABS: BASO # 0.1 x10^3/uL (0.0-0.2); BASO % 1 % (0-3); EOS # 0.2 x10^3/uL (0.0-0.7); EOS % 2 % (0-3); HEMATOCRIT 39.3 % (39.0-53.0); HEMOGLOBIN 13.2 g/dL (13.0-17.5); LYMPH # 1.2 x10^3/uL (1.0-4.8); LYMPH % 15 % (24-48); MEAN CORPUSCULAR HEMOGLOBIN 30 pg (25-35); MEAN CORPUSCULAR HGB CONC 34 g/dL (31-37); MEAN CORPUSCULAR VOLUME 89 fL (79-100); MONO # 0.6 x10^3/uL (0.0-1.1); MONO % 8 % (0-9); NEUT % 75 % (31-73); PLATELET COUNT 177 x10^3/uL (140-400); RED BLOOD COUNT 4.42 x10^6/uL (4.30-5.70); RED CELL DISTRIBUTION WIDTH 13.6 % (11.5-14.5); WHITE BLOOD COUNT 8.1 x10^3/uL (4.0-11.0)
[2019-06-02 12:56] LABS: CALCIUM 9.1 mg/dL (8.5-10.1); CREATININE 1.1 mg/dL (0.7-1.3); GFR 63.6; POTASSIUM 4.1 mmol/L (3.5-5.1)
[2019-06-02 13:02] LABS: ALBUMIN 3.4 g/dL (3.4-5.0); ALBUMIN/GLOBULIN RATIO 0.8 (1.0-1.7); MAGNESIUM 1.7 mg/dL (1.8-2.4); TOTAL BILIRUBIN 0.3 mg/dL (0.2-1.0); TOTAL PROTEIN 7.5 g/dL (6.4-8.2)
[2019-06-02 13:09] LABS: CREATINE KINASE 56 U/L (39-308)
--- NOTE | 2019-06-02 13:18 | RAD ---
Right upper quadrant abdominal ultrasound History: Right upper quadrant pain. Comparison: CT abdomen and pelvis without contrast, October 14, 2017. Technique: Transabdominal ultrasound images are obtained. Findings: Study is technically difficult due to patient body habitus. The pancreas and IVC are obscured due to overlying bowel gas. Liver is normal in echogenicity. Right hepatic lobe measures 17.9 cm. Portal flow is hepatopedal. Gallbladder is contracted, limiting evaluation and accentuating wall thickness. No cholelithiasis or pericholecystic fluid is seen. Sonographic Montes sign is negative. Common bile duct caliber is normal measuring 4 mm in diameter. The right kidney measures 13 cm in length and is without evidence of obstruction. IMPRESSION: Gallbladder is contracted due to limited nothing by mouth status, otherwise normal. Electronically signed by: Ulises Barrett MD (06/02/2019 1:15 PM) [id number]
[2019-06-02] MEDS ORDERED: MAGNESIUM SULFATE 1GM 100 ML IV ONE (13:45)
[2019-06-02] MEDS ORDERED: ACETAMINOPHEN 325 MG TABLET. PO PRN (14:30)
[2019-06-02] MEDS ORDERED: ONDANSETRON PF 4 MG/2 ML VIAL. IV PRN (14:30)
[2019-06-02] MEDS ORDERED: MORPHINE SULFATE 4 MG/ML VIAL. IV PRN (14:30)
[2019-06-02 14:49] LABS: BILIRUBIN,URINE NEGATIVE (NEG); CLARITY,URINE CLEAR; COLOR,URINE YELLOW; NITRITE,URINE POSITIVE (NEG); PH,URINE 8.5; PROTEIN,URINE 100 mg/dL (NEG-TRACE); UROBILINOGEN,URINE 0.2 mg/dL (0.2 mg/dL)
[2019-06-02 14:53] LABS: BACTERIA,URINE MANY /HPF (0-FEW); WBC,URINE >40 /HPF (0-4)
[2019-06-02 14:54] LABS: RBC,URINE OCC /HPF (0-2)
[2019-06-02 14:56] LABS: AMPHETAMINE/METHAMPHETAMINE NEG (NEG); BARBITURATES NEG (NEG); BENZODIAZEPINES NEG (NEG); CANNABINOIDS NEG (NEG); COCAINE NEG (NEG); METHADONE NEG (NEG); OPIATES POS (NEG); PHENCYCLIDINE NEG (NEG)
--- NOTE | 2019-06-02 14:59 | PDOC2 ---
JANET FARRELL BRAKE LINING FINISHER ASBESTOS 06/02/19 1459: CARDIAC CONSULT DATE OF CONSULT Date of Consult DATE: 06/02/19 TIME: 14:42 REASON FOR CONSULT Reason for Consult: Chest pain REFERRING PHYSICIAN Referring Physician: Annika SOURCE Source: Chart review, Patient HISTORY OF PRESENT ILLNESS HISTORY OF PRESENT ILLNESS This is a pleasant 83 yo male admitted for complains of chest pain. 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 Reports that he has been having midchest pressure in the last 2-3 days. No nausea but has been having some discomfort in his abdomen as well. No diarrhea, fever or chills. He sometimes have SOA. His chest pain also gets worse with exertion even putting his clothes on. Denies any recent falls or injury. He does not follow with any examination grader as an outpt and not sure about last ischemic workup but did tell me that he had blockages pointing to his chest and verbalized that this was cleaned out. He has HTN, DM2 and HLP. PAST MEDICAL HISTORY Cardiovascular: CAD, HTN, Hyperlipidemia Pulmonary: No pertinent hx GI: Other (SBO) Psych: No pertinent hx Musculoskeletal: Osteoarthritis Rheumatologic: No pertinent hx Infectious disease: No pertinent hx ENT: No pertinent hx, Other (chronic speech impairment- stutters) Renal/: Prostate Ca. Endocrine: Diabetes (2) Dermatology: No pertinent hx PAST SURGICAL HISTORY Past Surgical History: Colon Resection, Other (TURP; suprapubic cath placement) FAMILY HISTORY Family History noncontributory SOCIAL HISTORY Smoke: No ALCOHOL: none Drugs: None CURRENT MEDICATIONS CURRENT MEDICATIONS Current Medications Medications (Trade) Dose Ordered Sig/Althea Route PRN Reason Start Time Stop Time Status Last Admin Dose Admin Aspirin (Sangita Aspirin) 325 mg 1X ONCE PO 06/02/19 11:45 06/02/19 11:46 DC 06/02/19 13:06 Morphine Sulfate (Morphine Sulfate) 4 mg PRN Q15MIN PRN IV/SQ PAIN GREATER THAN 3/10 06/02/19 11:45 06/03/19 11:44 06/02/19 13:09 ALLERGIES ALLERGIES: Coded Allergies: No Known Drug Allergies (Unverified , 03/28/19) ROS Review of System 14 point ROS evaluated with pertinent positives noted per HPI PHYSICAL EXAM General: Alert, Oriented X3, Cooperative, No acute distress HEENT: Atraumatic, Mucous membr. moist/pink Lungs: Clear to auscultation, Normal air movement Heart: Regular rate (SR RBBB), Normal S1, Normal S2, Other (3/6 systolic murmur to LLS border) Abdomen: Soft, No tenderness, Other (suprapubic cath in place) Extremities: No cyanosis Skin: No breakdown Neuro: Sensation intact, Other (stutters speech) Psych/Mental Status: Mood NL MUSCULOSKELETAL: Osteoarthritic changes both hands VITALS/I&O VITALS/I&O: Vital Signs Date Time Temp Pulse Resp B/P (MAP) Pulse Ox O2 Delivery O2 Flow Rate FiO2 06/02/19 13:42 19 96 Room Air 06/02/19 11:43 97.6 100 155/71 (99) 97.6 LABS Lab: Laboratory Tests Test 06/02/19 12:37 White Blood Count 8.1 x10^3/uL (4.0-11.0) Red Blood Count 4.42 x10^6/uL (4.30-5.70) Hemoglobin 13.2 g/dL (13.0-17.5) Hematocrit 39.3 % (39.0-53.0) Mean Corpuscular Volume 89 fL (79-100) Mean Corpuscular Hemoglobin 30 pg (25-35) Mean Corpuscular Hemoglobin Concent 34 g/dL (31-37) Red Cell Distribution Width 13.6 % (11.5-14.5) Platelet Count 177 x10^3/uL (140-400) Neutrophils (%) (Auto) 75 % (31-73) H Lymphocytes (%) (Auto) 15 % (24-48) L Monocytes (%) (Auto) 8 % (0-9) Eosinophils (%) (Auto) 2 % (0-3) Basophils (%) (Auto) 1 % (0-3) Neutrophils # (Auto) 6.0 x10^3/uL (1.8-7.7) Lymphocytes # (Auto) 1.2 x10^3/uL (1.0-4.8) Monocytes # (Auto) 0.6 x10^3/uL (0.0-1.1) Eosinophils # (Auto) 0.2 x10^3/uL (0.0-0.7) Basophils # (Auto) 0.1 x10^3/uL (0.0-0.2) D-Dimer (Genevieve) 0.39 ug/mlFEU (0.00-0.50) Sodium Level 137 mmol/L (136-145) Potassium Level 4.1 mmol/L (3.5-5.1) Chloride Level 99 mmol/L (98-107) Carbon Dioxide Level 30 mmol/L (21-32) Anion Gap 8 (6-14) Blood Urea Nitrogen 21 mg/dL (8-26) Creatinine 1.1 mg/dL (0.7-1.3) Estimated GFR (Cockcroft-Gault) 63.6 BUN/Creatinine Ratio 19 (6-20) Glucose Level 344 mg/dL (70-99) H Calcium Level 9.1 mg/dL (8.5-10.1) Magnesium Level 1.7 mg/dL (1.8-2.4) L Total Bilirubin 0.3 mg/dL (0.2-1.0) Aspartate Amino Transferase (AST) 14 U/L (15-37) L Alanine Aminotransferase (ALT) 15 U/L (16-63) L Alkaline Phosphatase 91 U/L (46-116) Creatine Kinase 56 U/L (39-308) Creatine Kinase MB (Mass) 1.2 ng/mL (0.0-3.6) Creatine Kinase MB Relative Index % (0-4) Troponin I Quantitative < 0.017 ng/mL (0.000-0.055) HA-Btc-J-Type Natriuretic Peptide 43 pg/mL (0-449) Total Protein 7.5 g/dL (6.4-8.2) Albumin 3.4 g/dL (3.4-5.0) Albumin/Globulin Ratio 0.8 (1.0-1.7) L Thyroid Stimulating Hormone (TSH) 3.179 uIU/mL (0.358-3.74) Laboratory Tests 06/02/19 12:37 Laboratory Tests 06/02/19 12:37 ECHOCARDIOGRAM ECHOCARDIOGRAM <Conclusion> The left ventricle is normal size. The left ventricular systolic function is normal. The Ejection Fraction is 60-65%. There is mild concentric left ventricular hypertrophy. There is no significant aortic valvular stenosis. Doppler and Color Flow revealed no significant aortic regurgitation. Doppler and Color-flow revealed trace mitral regurgitation. Doppler and Color Flow revealed trace tricuspid regurgitation. The PA pressure was estimated at 22 mmHg. Doppler and Color Flow revealed mild pulmonic valvular regurgitation. There is no evidence of significant pericardial effusion. DATE: 09/07/14 1435 STRESS TEST STRESS TEST Conclusion 1. Regadenoson cardioisotope stress test did not show any evidence of ischemia or infarct. 2. Normal left ventricular systolic function with ejection fraction calculated at 72%. 3. Low risk for cardiac events. DATE: 09/02/16 1027 ASSESSMENT/PLAN ASSESSMENT/PLAN 1. Chest pain: UA features 2. Chronic RBBB 3. CAD: unclear past PCI 4. HTN: controlled 5. HLP 6. DM2: uncontrolled 7. Morbid obesity 8. Hx of prostate CA with TURP: suprapubic cath in place Recommendations 1. LHC, risks and benefits discussed and agreeable to proceed. 2. ASA. Will review meds post LHC and resume secondary prevention measures. Will obtain accurate med list. Replace Mg 3. TTE, TSH, lipids, A1C CHRISTOPHE AVILES MD 06/02/19 2146: CARDIAC CONSULT ASSESSMENT/PLAN ASSESSMENT/PLAN Pt. seen and examined. Agree with above BURRER OPERATOR note. Cath w/o significant disease and paten stent. Continue aggressive medical therapy Anticipate DC tomorrow. JANET FARRELL APRN Jun 02, 2019 14:59 CHRISTOPHE AVILES MD Jun 02, 2019 21:46
[2019-06-02] MEDS ORDERED: LIDOCAINE 1% PF 2 ML VIAL. ONE (15:15)
[2019-06-02] MEDS ORDERED: IOHEXOL 300 MG/ML 100ML VIAL. ONE (15:15)
[2019-06-02] MEDS ORDERED: HEPARIN for IV BOLUS 10,000 UNIT/10 ML VIAL. ONE (15:34)
[2019-06-02] MEDS ORDERED: fentaNYL PF VIAL 100 MCG/2 ML VIAL ONE (15:34)
[2019-06-02] MEDS ORDERED: NITROGLYCERIN 200 MCG/2 ML SYRINGE FOR CATH/VASC LAB. ONE (15:34)
[2019-06-02] MEDS ORDERED: VERAPAMIL 5 MG/2 ML VIAL. ONE (15:34)
[2019-06-02] MEDS ORDERED: MIDAZOLAM HCL/PF 2 MG/2 ML VIAL. ONE (15:34)
[2019-06-02] MEDS ORDERED: LIDOCAINE 1% PF 2 ML VIAL. INJ ONE (16:15)
[2019-06-02] MEDS ORDERED: VERAPAMIL 5 MG/2 ML VIAL. IART ONE (16:15)
[2019-06-02] MEDS ORDERED: IOHEXOL 300 MG/ML 100ML VIAL. IART ONE (16:15)
[2019-06-02] MEDS ORDERED: fentaNYL PF VIAL 100 MCG/2 ML VIAL IV ONE (16:15)
[2019-06-02] MEDS ORDERED: NITROGLYCERIN 200 MCG/2 ML SYRINGE FOR CATH/VASC LAB. IART ONE (16:15)
[2019-06-02] MEDS ORDERED: HEPARIN for IV BOLUS 10,000 UNIT/10 ML VIAL. IART ONE (16:15)
[2019-06-02] MEDS ORDERED: MIDAZOLAM HCL/PF 2 MG/2 ML VIAL. IV ONE (16:15)
[2019-06-02] MEDS ORDERED: CONTRAST GIVEN. MC PRN (16:30)
--- NOTE | 2019-06-02 17:16 | CARD ---
MR#: [id number] Date of Study: 06/02/2019 Ordering Physician: CHRISTOPHE LAY, Referring Physician: CHRISTOPHE LAY, Tech: RT Santa (R) APPROVED REPORT Technologist: RT Santa (R) Nurse: Savanah Mclean R.N. Procedure(s) performed: FLOURO TIME 6.1 MINUTES DOSE 91.91 Gycm2 CONTRAST 71CC'S OMNIPAQUE MODERATE SEDATION 30 MINUTES Coronary angiography HISTORY The patient is a 83 year-old male with a history of : coronary artery disease, hypertension, dyslipid emia. INDICATION The indication(s) include : unstable angina . [facility] Clinical Frailty Scale [facility] Clinical Frailty Scale: Moderately Frail Heart Failure Heart Failure: Yes If Yes, Newly Diagnosed: No If Yes, HF Type: Diastolic If Yes, NYHA Class: Class II CASE TECHNIQUE During this case, Fluoroscopy and low osmolar contrast were used for imaging. PROCEDURE NARRATIVE INFORMED CONSENT: After explaining the risks and benefits of the procedure and alternatives, informed consent was obtained. The patient was brought electively to the cardiac catheterization lab. A timeout was performed confi rming the patient's name, date of , procedure, and site of procedure. All necessary personnel w ere wearing the appropriate protective equipment and radiation monitor devices. (See nursing notes for medications administered). ACCESS: The right wrist was sterilely prepped and draped in the usual fashion. The right wrist was infiltrat ed with 1 mL of 2% lidocaine for subcutaneous anesthesia. A 6 Chinese Terumo glide sheath was inserte d into the right radial artery without difficulty. CORONARY ANGIOGRAPHY: Right and left coronary angiography was performed using a 6Fr TIG 4.0 catheter. Left ventricular en d diastolic pressure was obtained with a pigtail catheter and pullback was performed after left ventr iculography. All catheter exchanges and advancements were performed over a guidewire. CLOSURE: At case completion the right radial sheath was removed and a Terumo radial band was applied with 13 m l of air. COMPLICATIONS: The patient tolerated the procedure well and there were no immediate complications. FINDINGS: HEMODYNAMICS: AO: 128/78 CORONARY ANGIOGRAPHY: LM is a large caliber vessel with normal angiographic appearance. LAD is a large caliber vessel with a patent proximal stent with 30% ISR. The distal vessel has no sig nificant disease. LCx is a large caliber dominant vessel with mild luminal irregularities. OM1 is a moderate caliber vessel with normal angiographic appearance. LPDA is a moderate caliber vessel with normal angiographic appearance. RCA is a small caliber non-dominant vessel normal angiographic appearance. Conclusion 1. One vessel CAD with patent LAD stent. Recommendations Aggressive Medical Therapy Signed by : Christophe Lay, Electronically Approved : 06/02/2019 17:16:21
--- NOTE | 2019-06-02 17:28 | SSS ---
ADMIT DATE: 06/02/2019 CHIEF COMPLAINT: Chest pain. HISTORY OF PRESENT ILLNESS: The patient is a pleasant 83-year-old male, who has known coronary artery disease. He actually has a previous stent to the LAD. Today, he presented with 3 days of chest pain. It got worse today. He took some [id number] meds that did not help. I discussed the case with ER physician. The patient was taken emergently to the analytical lab analyst. Surprisingly, the cath was negative. He is now being examined on the telemetry floor. We plan to discharge tomorrow if he is stable. PAST MEDICAL HISTORY: Previous coronary artery disease with stent, diabetes, hypertension, hyperlipidemia, prostate cancer, chemotherapy. ALLERGIES: None. FAMILY HISTORY: Coronary artery disease. SOCIAL HISTORY: Does not drink, smoke or take drugs. MEDICATIONS: Reviewed, please refer to the MRAD. REVIEW OF SYSTEMS: GENERAL: No history of weight change, weakness or fevers. SKIN: No bruising, hair changes or rashes. EYES: No blurred, double or loss of vision. NOSE AND THROAT: No history of nosebleeds, hoarseness or sore throat. HEART: No history of palpitations, chest pain or shortness of breath on exertion. LUNGS: Denies cough, hemoptysis, wheezing or shortness of breath. GASTROINTESTINAL: Denies changes in appetite, nausea, vomiting, diarrhea or constipation. GENITOURINARY: No history of frequency, urgency, hesitancy or nocturia. NEUROLOGIC: Denies history of numbness, tingling, tremor or weakness. PSYCHIATRIC: No history of panic, anxiety or depression. ENDOCRINE: No history of heat or cold intolerance, polyuria or polydipsia. EXTREMITIES: Denies muscle weakness, joint pain, pain on walking or stiffness. PHYSICAL EXAMINATION: VITALS: Within normal limits and are stable. GENERAL: No apparent distress. Alert and oriented. HEENT: Head is normocephalic, atraumatic, pupils were equally round and reactive to light and accommodation. NECK: Supple, no JVD, no thyromegaly was noted. LUNGS: Clear to auscultation in all lung dee without rhonchi or wheezing. HEART: RRR, S1, S2 present. Peripheral pulses intact, no obvious murmurs were noted. ABDOMEN: Soft, nontender. Positive bowel sounds no organomegaly, normal bowel sounds. EXTREMITIES: Without any cyanosis, clubbing, or edema. Pedal pulses intact, Homans sign is negative. NEUROLOGIC: Normal speech, normal tone. A & O x3, moves all extremities, no obvious focal deficits. PSYCHIATRIC: Normal affect, normal mood. Stable. SKIN: No ulcerations or rashes, good skin turgor, no jaundice. VASCULAR: Good capillary refill, neurovascular bundle appears to be intact. LABORATORY DATA: Troponin is 0. Hematology is normal. ASSESSMENT AND PLAN: Resolving chest pain with emergent cardiac catheterization that was negative. For now, we will continue his home meds, cardiac monitoring, continue serial enzymes, serial EKGs. Hope to discharge tomorrow if stable. FAIZA LONGORIA DO DR: SARAN/topher JOB#: [id number] / [id number]
[2019-06-02] MEDS ORDERED: DEXTROSE 50% 25 GM / 50ML DISP.SYRIN. IV PRN (17:30)
[2019-06-02] MEDS ORDERED: HYDR-2869 PO (17:33)
[2019-06-02] MEDS: amLODIPine BESYLATE 5 MG TABLET PO SCH (18:03)
[2019-06-02] MEDS: LISINOPRIL 20 MG TABLET PO SCH (18:03)
[2019-06-02] MEDS: PANTOPRAZOLE 40 MG TABLET.DR. PO SCH (18:03)
[2019-06-02] MEDS: PIOGLITAZONE 15 MG TABLET. PO SCH (18:03)
[2019-06-02] MEDS: glipiZIDE 5 MG TABLET PO SCH (18:03)
[2019-06-02] MEDS: INSULIN LISPRO 300 UNITS/3 ML VIAL. SQ SCH (18:09)
[2019-06-02] MEDS ORDERED: ATORVASTATIN CALCIUM 20 MG TABLET PO SCH (21:00)
[2019-06-03 00:08] LABS: HEMOGLOBIN A1C 8.7 % (4.8-5.6)
[2019-06-03 03:00] VITALS: BP 141/67
[2019-06-03 04:34] LABS: BASO # 0.1 x10^3/uL (0.0-0.2); BASO % 1 % (0-3); EOS # 0.3 x10^3/uL (0.0-0.7); EOS % 3 % (0-3); HEMATOCRIT 37.5 % (39.0-53.0); HEMOGLOBIN 12.4 g/dL (13.0-17.5); LYMPH # 2.3 x10^3/uL (1.0-4.8); LYMPH % 25 % (24-48); MEAN CORPUSCULAR HEMOGLOBIN 30 pg (25-35); MEAN CORPUSCULAR HGB CONC 33 g/dL (31-37); MEAN CORPUSCULAR VOLUME 89 fL (79-100); MONO # 0.9 x10^3/uL (0.0-1.1); MONO % 10 % (0-9); NEUT # 5.5 x10^3/uL (1.8-7.7); NEUT % 61 % (31-73); PLATELET COUNT 175 x10^3/uL (140-400); RED BLOOD COUNT 4.22 x10^6/uL (4.30-5.70); RED CELL DISTRIBUTION WIDTH 13.7 % (11.5-14.5)
[2019-06-03 05:02] LABS: ALBUMIN 3.3 g/dL (3.4-5.0); ALBUMIN/GLOBULIN RATIO 0.9 (1.0-1.7); CALCIUM 8.9 mg/dL (8.5-10.1); CREATININE 0.9 mg/dL (0.7-1.3); GFR 80.2; POTASSIUM 3.9 mmol/L (3.5-5.1); TOTAL BILIRUBIN 0.4 mg/dL (0.2-1.0); TOTAL PROTEIN 7.1 g/dL (6.4-8.2)
[2019-06-03 07:02] VITALS: BP 185/92
[2019-06-03] MEDS: INSULIN LISPRO 300 UNITS/3 ML VIAL. SQ SCH ×2 (08:00→13:07)
[2019-06-03] MEDS: PIOGLITAZONE 15 MG TABLET. PO SCH (08:09)
[2019-06-03] MEDS: PANTOPRAZOLE 40 MG TABLET.DR. PO SCH (08:09)
[2019-06-03] MEDS: amLODIPine BESYLATE 5 MG TABLET PO SCH (08:09)
[2019-06-03] MEDS: LISINOPRIL 20 MG TABLET PO SCH (08:09)
[2019-06-03] MEDS: glipiZIDE 5 MG TABLET PO SCH (08:10)
--- NOTE | 2019-06-03 08:45 | PDOC ---
PROGRESS NOTES Chief Complaint Chief Complaint Chest pain: UA features 2. Chronic RBBB 3. CAD: unclear past PCI 4. HTN: controlled 5. HLP 6. DM2: uncontrolled 7. Morbid obesity 8. Hx of prostate CA with TURP: suprapubic cath in place History of Present Illness History of Present Illness 83 yo male w/ PMHx HTN, DM2, HLD, CAD with prior LAD stenting admitted for complains of chest pain. 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 Reports that he has been having midchest pressure in the last 4 days. No nausea but has been having some discomfort in his abdomen as well. No diarrhea, fever or chills. He sometimes have SOA. His chest pain also gets worse with exertion even putting his clothes on. Denies any recent falls or injury. 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 He feels improved today. Still with a bit of abdominal pain and some hypoxia. Vitals Vitals Vital Signs Date Time Temp Pulse Resp B/P (MAP) Pulse Ox O2 Delivery O2 Flow Rate FiO2 06/03/19 08:10 85 06/03/19 07:02 98.0 20 185/92 (123) 95 Room Air 98.0 06/02/19 19:30 2.0 Physical Exam General: Alert, Oriented X3, Cooperative, No acute distress Heart: Regular rate (SR RBBB), Normal S1, Normal S2, Other (3/6 systolic murmur to LLS border) Lungs: Clear, Other Abdomen: Soft, No tenderness, Other (suprapubic cath in place) Extremities: No cyanosis Skin: No breakdown Labs LABS Laboratory Tests Test 06/02/19 12:37 06/02/19 14:20 06/02/19 15:10 06/02/19 17:26 White Blood Count 8.1 x10^3/uL (4.0-11.0) Red Blood Count 4.42 x10^6/uL (4.30-5.70) Hemoglobin 13.2 g/dL (13.0-17.5) Hematocrit 39.3 % (39.0-53.0) Mean Corpuscular Volume 89 fL (79-100) Mean Corpuscular Hemoglobin 30 pg (25-35) Mean Corpuscular Hemoglobin Concent 34 g/dL (31-37) Red Cell Distribution Width 13.6 % (11.5-14.5) Platelet Count 177 x10^3/uL (140-400) Neutrophils (%) (Auto) 75 % (31-73) Lymphocytes (%) (Auto) 15 % (24-48) Monocytes (%) (Auto) 8 % (0-9) Eosinophils (%) (Auto) 2 % (0-3) Basophils (%) (Auto) 1 % (0-3) Neutrophils # (Auto) 6.0 x10^3/uL (1.8-7.7) Lymphocytes # (Auto) 1.2 x10^3/uL (1.0-4.8) Monocytes # (Auto) 0.6 x10^3/uL (0.0-1.1) Eosinophils # (Auto) 0.2 x10^3/uL (0.0-0.7) Basophils # (Auto) 0.1 x10^3/uL (0.0-0.2) D-Dimer (Genevieve) 0.39 ug/mlFEU (0.00-0.50) Sodium Level 137 mmol/L (136-145) Potassium Level 4.1 mmol/L (3.5-5.1) Chloride Level 99 mmol/L (98-107) Carbon Dioxide Level 30 mmol/L (21-32) Anion Gap 8 (6-14) Blood Urea Nitrogen 21 mg/dL (8-26) Creatinine 1.1 mg/dL (0.7-1.3) Estimated GFR (Cockcroft-Gault) 63.6 BUN/Creatinine Ratio 19 (6-20) Glucose Level 344 mg/dL (70-99) Hemoglobin A1c 8.7 % (4.8-5.6) Calcium Level 9.1 mg/dL (8.5-10.1) Magnesium Level 1.7 mg/dL (1.8-2.4) Total Bilirubin 0.3 mg/dL (0.2-1.0) Aspartate Amino Transf (AST/SGOT) 14 U/L (15-37) Alanine Aminotransferase (ALT/SGPT) 15 U/L (16-63) Alkaline Phosphatase 91 U/L (46-116) Creatine Kinase 56 U/L (39-308) Creatine Kinase MB (Mass) 1.2 ng/mL (0.0-3.6) Creatine Kinase MB Relative Index % (0-4) Troponin I Quantitative < 0.017 ng/mL (0.000-0.055) < 0.017 ng/mL (0.000-0.055) LR-Yqs-N-Type Natriuretic Peptide 43 pg/mL (0-449) Total Protein 7.5 g/dL (6.4-8.2) Albumin 3.4 g/dL (3.4-5.0) Albumin/Globulin Ratio 0.8 (1.0-1.7) Thyroid Stimulating Hormone (TSH) 3.179 uIU/mL (0.358-3.74) Urine Collection Type Unknown Urine Color Yellow Urine Clarity Clear Urine pH 8.5 Urine Specific [place] >=1.030 Urine Protein 100 mg/dL (NEG-TRACE) Urine Glucose (UA) 500 mg/dL (NEG) Urine Ketones (Stick) Trace mg/dL (NEG) Urine Blood Negative (NEG) Urine Nitrite Positive (NEG) Urine Bilirubin Negative (NEG) Urine Urobilinogen Dipstick 0.2 mg/dL (0.2 mg/dL) Urine Leukocyte Esterase Moderate (NEG) Urine RBC Occ /HPF (0-2) Urine WBC >40 /HPF (0-4) Urine Bacteria Many /HPF (0-FEW) Urine Mucus Mod /LPF Urine Opiates Screen Pos (NEG) Urine Methadone Screen Neg (NEG) Urine Barbiturates Neg (NEG) Urine Phencyclidine Screen Neg (NEG) Urine Amphetamine/Methamphetamine Neg (NEG) Urine Benzodiazepines Screen Neg (NEG) Urine Cocaine Screen Neg (NEG) Urine Cannabinoids Screen Neg (NEG) Urine Ethyl Alcohol Neg (NEG) Glucose (Fingerstick) 255 mg/dL (70-99) Test 06/02/19 18:15 06/02/19 20:20 06/03/19 04:15 06/03/19 07:08 Troponin I Quantitative < 0.017 ng/mL (0.000-0.055) Glucose (Fingerstick) 159 mg/dL (70-99) 147 mg/dL (70-99) White Blood Count 9.0 x10^3/uL (4.0-11.0) Red Blood Count 4.22 x10^6/uL (4.30-5.70) Hemoglobin 12.4 g/dL (13.0-17.5) Hematocrit 37.5 % (39.0-53.0) Mean Corpuscular Volume 89 fL (79-100) Mean Corpuscular Hemoglobin 30 pg (25-35) Mean Corpuscular Hemoglobin Concent 33 g/dL (31-37) Red Cell Distribution Width 13.7 % (11.5-14.5) Platelet Count 175 x10^3/uL (140-400) Neutrophils (%) (Auto) 61 % (31-73) Lymphocytes (%) (Auto) 25 % (24-48) Monocytes (%) (Auto) 10 % (0-9) Eosinophils (%) (Auto) 3 % (0-3) Basophils (%) (Auto) 1 % (0-3) Neutrophils # (Auto) 5.5 x10^3/uL (1.8-7.7) Lymphocytes # (Auto) 2.3 x10^3/uL (1.0-4.8) Monocytes # (Auto) 0.9 x10^3/uL (0.0-1.1) Eosinophils # (Auto) 0.3 x10^3/uL (0.0-0.7) Basophils # (Auto) 0.1 x10^3/uL (0.0-0.2) Sodium Level 139 mmol/L (136-145) Potassium Level 3.9 mmol/L (3.5-5.1) Chloride Level 102 mmol/L (98-107) Carbon Dioxide Level 28 mmol/L (21-32) Anion Gap 9 (6-14) Blood Urea Nitrogen 23 mg/dL (8-26) Creatinine 0.9 mg/dL (0.7-1.3) Estimated GFR (Cockcroft-Gault) 80.2 BUN/Creatinine Ratio 26 (6-20) Glucose Level 129 mg/dL (70-99) Calcium Level 8.9 mg/dL (8.5-10.1) Total Bilirubin 0.4 mg/dL (0.2-1.0) Aspartate Amino Transf (AST/SGOT) 12 U/L (15-37) Alanine Aminotransferase (ALT/SGPT) 16 U/L (16-63) Alkaline Phosphatase 78 U/L (46-116) Total Protein 7.1 g/dL (6.4-8.2) Albumin 3.3 g/dL (3.4-5.0) Albumin/Globulin Ratio 0.9 (1.0-1.7) Triglycerides Level 127 mg/dL (0-150) Cholesterol Level 121 mg/dL (0-200) LDL Cholesterol, Calculated 66 mg/dL (0-100) VLDL Cholesterol, Calculated 25 mg/dL (0-40) Non-HDL Cholesterol Calculated 91 mg/dL (0-129) HDL Cholesterol 30 mg/dL (40-60) Cholesterol/HDL Ratio 4.0 Assessment and Plan Assessmemt and Plan Problems Medical Problems: (1) CAD (coronary artery disease) Status: Chronic (2) Chest pain Status: Acute (3) Chronic bundle branch block Status: Chronic (4) DM2 (diabetes mellitus, type 2) Status: Chronic (5) HLP (hyperkeratosis lenticularis perstans) Status: Chronic (6) HTN (hypertension) Status: Chronic (7) Morbid obesity Status: Chronic (8) Prostate CA Status: Chronic Comment Review of Relevant I have reviewed the following items yohan (where applicable) has been applied. Labs Laboratory Tests Test 06/02/19 12:37 06/02/19 14:20 06/02/19 15:10 06/02/19 17:26 White Blood Count 8.1 x10^3/uL (4.0-11.0) Red Blood Count 4.42 x10^6/uL (4.30-5.70) Hemoglobin 13.2 g/dL (13.0-17.5) Hematocrit 39.3 % (39.0-53.0) Mean Corpuscular Volume 89 fL (79-100) Mean Corpuscular Hemoglobin 30 pg (25-35) Mean Corpuscular Hemoglobin Concent 34 g/dL (31-37) Red Cell Distribution Width 13.6 % (11.5-14.5) Platelet Count 177 x10^3/uL (140-400) Neutrophils (%) (Auto) 75 % (31-73) Lymphocytes (%) (Auto) 15 % (24-48) Monocytes (%) (Auto) 8 % (0-9) Eosinophils (%) (Auto) 2 % (0-3) Basophils (%) (Auto) 1 % (0-3) Neutrophils # (Auto) 6.0 x10^3/uL (1.8-7.7) Lymphocytes # (Auto) 1.2 x10^3/uL (1.0-4.8) Monocytes # (Auto) 0.6 x10^3/uL (0.0-1.1) Eosinophils # (Auto) 0.2 x10^3/uL (0.0-0.7) Basophils # (Auto) 0.1 x10^3/uL (0.0-0.2) D-Dimer (Genevieve) 0.39 ug/mlFEU (0.00-0.50) Sodium Level 137 mmol/L (136-145) Potassium Level 4.1 mmol/L (3.5-5.1) Chloride Level 99 mmol/L (98-107) Carbon Dioxide Level 30 mmol/L (21-32) Anion Gap 8 (6-14) Blood Urea Nitrogen 21 mg/dL (8-26) Creatinine 1.1 mg/dL (0.7-1.3) Estimated GFR (Cockcroft-Gault) 63.6 BUN/Creatinine Ratio 19 (6-20) Glucose Level 344 mg/dL (70-99) Hemoglobin A1c 8.7 % (4.8-5.6) Calcium Level 9.1 mg/dL (8.5-10.1) Magnesium Level 1.7 mg/dL (1.8-2.4) Total Bilirubin 0.3 mg/dL (0.2-1.0) Aspartate Amino Transf (AST/SGOT) 14 U/L (15-37) Alanine Aminotransferase (ALT/SGPT) 15 U/L (16-63) Alkaline Phosphatase 91 U/L (46-116) Creatine Kinase 56 U/L (39-308) Creatine Kinase MB (Mass) 1.2 ng/mL (0.0-3.6) Creatine Kinase MB Relative Index % (0-4) Troponin I Quantitative < 0.017 ng/mL (0.000-0.055) < 0.017 ng/mL (0.000-0.055) CE-Zdl-C-Type Natriuretic Peptide 43 pg/mL (0-449) Total Protein 7.5 g/dL (6.4-8.2) Albumin 3.4 g/dL (3.4-5.0) Albumin/Globulin Ratio 0.8 (1.0-1.7) Thyroid Stimulating Hormone (TSH) 3.179 uIU/mL (0.358-3.74) Urine Collection Type Unknown Urine Color Yellow Urine Clarity Clear Urine pH 8.5 Urine Specific [place] >=1.030 Urine Protein 100 mg/dL (NEG-TRACE) Urine Glucose (UA) 500 mg/dL (NEG) Urine Ketones (Stick) Trace mg/dL (NEG) Urine Blood Negative (NEG) Urine Nitrite Positive (NEG) Urine Bilirubin Negative (NEG) Urine Urobilinogen Dipstick 0.2 mg/dL (0.2 mg/dL) Urine Leukocyte Esterase Moderate (NEG) Urine RBC Occ /HPF (0-2) Urine WBC >40 /HPF (0-4) Urine Bacteria Many /HPF (0-FEW) Urine Mucus Mod /LPF Urine Opiates Screen Pos (NEG) Urine Methadone Screen Neg (NEG) Urine Barbiturates Neg (NEG) Urine Phencyclidine Screen Neg (NEG) Urine Amphetamine/Methamphetamine Neg (NEG) Urine Benzodiazepines Screen Neg (NEG) Urine Cocaine Screen Neg (NEG) Urine Cannabinoids Screen Neg (NEG) Urine Ethyl Alcohol Neg (NEG) Glucose (Fingerstick) 255 mg/dL (70-99) Test 06/02/19 18:15 06/02/19 20:20 06/03/19 04:15 06/03/19 07:08 Troponin I Quantitative < 0.017 ng/mL (0.000-0.055) Glucose (Fingerstick) 159 mg/dL (70-99) 147 mg/dL (70-99) White Blood Count 9.0 x10^3/uL (4.0-11.0) Red Blood Count 4.22 x10^6/uL (4.30-5.70) Hemoglobin 12.4 g/dL (13.0-17.5) Hematocrit 37.5 % (39.0-53.0) Mean Corpuscular Volume 89 fL (79-100) Mean Corpuscular Hemoglobin 30 pg (25-35) Mean Corpuscular Hemoglobin Concent 33 g/dL (31-37) Red Cell Distribution Width 13.7 % (11.5-14.5) Platelet Count 175 x10^3/uL (140-400) Neutrophils (%) (Auto) 61 % (31-73) Lymphocytes (%) (Auto) 25 % (24-48) Monocytes (%) (Auto) 10 % (0-9) Eosinophils (%) (Auto) 3 % (0-3) Basophils (%) (Auto) 1 % (0-3) Neutrophils # (Auto) 5.5 x10^3/uL (1.8-7.7) Lymphocytes # (Auto) 2.3 x10^3/uL (1.0-4.8) Monocytes # (Auto) 0.9 x10^3/uL (0.0-1.1) Eosinophils # (Auto) 0.3 x10^3/uL (0.0-0.7) Basophils # (Auto) 0.1 x10^3/uL (0.0-0.2) Sodium Level 139 mmol/L (136-145) Potassium Level 3.9 mmol/L (3.5-5.1) Chloride Level 102 mmol/L (98-107) Carbon Dioxide Level 28 mmol/L (21-32) Anion Gap 9 (6-14) Blood Urea Nitrogen 23 mg/dL (8-26) Creatinine 0.9 mg/dL (0.7-1.3) Estimated GFR (Cockcroft-Gault) 80.2 BUN/Creatinine Ratio 26 (6-20) Glucose Level 129 mg/dL (70-99) Calcium Level 8.9 mg/dL (8.5-10.1) Total Bilirubin 0.4 mg/dL (0.2-1.0) Aspartate Amino Transf (AST/SGOT) 12 U/L (15-37) Alanine Aminotransferase (ALT/SGPT) 16 U/L (16-63) Alkaline Phosphatase 78 U/L (46-116) Total Protein 7.1 g/dL (6.4-8.2) Albumin 3.3 g/dL (3.4-5.0) Albumin/Globulin Ratio 0.9 (1.0-1.7) Triglycerides Level 127 mg/dL (0-150) Cholesterol Level 121 mg/dL (0-200) LDL Cholesterol, Calculated 66 mg/dL (0-100) VLDL Cholesterol, Calculated 25 mg/dL (0-40) Non-HDL Cholesterol Calculated 91 mg/dL (0-129) HDL Cholesterol 30 mg/dL (40-60) Cholesterol/HDL Ratio 4.0 Laboratory Tests Test 06/02/19 12:37 06/02/19 14:20 06/02/19 15:10 06/02/19 17:26 White Blood Count 8.1 x10^3/uL (4.0-11.0) Red Blood Count 4.42 x10^6/uL (4.30-5.70) Hemoglobin 13.2 g/dL (13.0-17.5) Hematocrit 39.3 % (39.0-53.0) Mean Corpuscular Volume 89 fL (79-100) Mean Corpuscular Hemoglobin 30 pg (25-35) Mean Corpuscular Hemoglobin Concent 34 g/dL (31-37) Red Cell Distribution Width 13.6 % (11.5-14.5) Platelet Count 177 x10^3/uL (140-400) Neutrophils (%) (Auto) 75 % (31-73) Lymphocytes (%) (Auto) 15 % (24-48) Monocytes (%) (Auto) 8 % (0-9) Eosinophils (%) (Auto) 2 % (0-3) Basophils (%) (Auto) 1 % (0-3) Neutrophils # (Auto) 6.0 x10^3/uL (1.8-7.7) Lymphocytes # (Auto) 1.2 x10^3/uL (1.0-4.8) Monocytes # (Auto) 0.6 x10^3/uL (0.0-1.1) Eosinophils # (Auto) 0.2 x10^3/uL (0.0-0.7) Basophils # (Auto) 0.1 x10^3/uL (0.0-0.2) D-Dimer (Genevieve) 0.39 ug/mlFEU (0.00-0.50) Sodium Level 137 mmol/L (136-145) Potassium Level 4.1 mmol/L (3.5-5.1) Chloride Level 99 mmol/L (98-107) Carbon Dioxide Level 30 mmol/L (21-32) Anion Gap 8 (6-14) Blood Urea Nitrogen 21 mg/dL (8-26) Creatinine 1.1 mg/dL (0.7-1.3) Estimated GFR (Cockcroft-Gault) 63.6 BUN/Creatinine Ratio 19 (6-20) Glucose Level 344 mg/dL (70-99) Hemoglobin A1c 8.7 % (4.8-5.6) Calcium Level 9.1 mg/dL (8.5-10.1) Magnesium Level 1.7 mg/dL (1.8-2.4) Total Bilirubin 0.3 mg/dL (0.2-1.0) Aspartate Amino Transf (AST/SGOT) 14 U/L (15-37) Alanine Aminotransferase (ALT/SGPT) 15 U/L (16-63) Alkaline Phosphatase 91 U/L (46-116) Creatine Kinase 56 U/L (39-308) Creatine Kinase MB (Mass) 1.2 ng/mL (0.0-3.6) Creatine Kinase MB Relative Index % (0-4) Troponin I Quantitative < 0.017 ng/mL (0.000-0.055) < 0.017 ng/mL (0.000-0.055) LW-Ppv-N-Type Natriuretic Peptide 43 pg/mL (0-449) Total Protein 7.5 g/dL (6.4-8.2) Albumin 3.4 g/dL (3.4-5.0) Albumin/Globulin Ratio 0.8 (1.0-1.7) Thyroid Stimulating Hormone (TSH) 3.179 uIU/mL (0.358-3.74) Urine Collection Type Unknown Urine Color Yellow Urine Clarity Clear Urine pH 8.5 Urine Specific [place] >=1.030 Urine Protein 100 mg/dL (NEG-TRACE) Urine Glucose (UA) 500 mg/dL (NEG) Urine Ketones (Stick) Trace mg/dL (NEG) Urine Blood Negative (NEG) Urine Nitrite Positive (NEG) Urine Bilirubin Negative (NEG) Urine Urobilinogen Dipstick 0.2 mg/dL (0.2 mg/dL) Urine Leukocyte Esterase Moderate (NEG) Urine RBC Occ /HPF (0-2) Urine WBC >40 /HPF (0-4) Urine Bacteria Many /HPF (0-FEW) Urine Mucus Mod /LPF Urine Opiates Screen Pos (NEG) Urine Methadone Screen Neg (NEG) Urine Barbiturates Neg (NEG) Urine Phencyclidine Screen Neg (NEG) Urine Amphetamine/Methamphetamine Neg (NEG) Urine Benzodiazepines Screen Neg (NEG) Urine Cocaine Screen Neg (NEG) Urine Cannabinoids Screen Neg (NEG) Urine Ethyl Alcohol Neg (NEG) Glucose (Fingerstick) 255 mg/dL (70-99) Test 06/02/19 18:15 06/02/19 20:20 06/03/19 04:15 06/03/19 07:08 Troponin I Quantitative < 0.017 ng/mL (0.000-0.055) Glucose (Fingerstick) 159 mg/dL (70-99) 147 mg/dL (70-99) White Blood Count 9.0 x10^3/uL (4.0-11.0) Red Blood Count 4.22 x10^6/uL (4.30-5.70) Hemoglobin 12.4 g/dL (13.0-17.5) Hematocrit 37.5 % (39.0-53.0) Mean Corpuscular Volume 89 fL (79-100) Mean Corpuscular Hemoglobin 30 pg (25-35) Mean Corpuscular Hemoglobin Concent 33 g/dL (31-37) Red Cell Distribution Width 13.7 % (11.5-14.5) Platelet Count 175 x10^3/uL (140-400) Neutrophils (%) (Auto) 61 % (31-73) Lymphocytes (%) (Auto) 25 % (24-48) Monocytes (%) (Auto) 10 % (0-9) Eosinophils (%) (Auto) 3 % (0-3) Basophils (%) (Auto) 1 % (0-3) Neutrophils # (Auto) 5.5 x10^3/uL (1.8-7.7) Lymphocytes # (Auto) 2.3 x10^3/uL (1.0-4.8) Monocytes # (Auto) 0.9 x10^3/uL (0.0-1.1) Eosinophils # (Auto) 0.3 x10^3/uL (0.0-0.7) Basophils # (Auto) 0.1 x10^3/uL (0.0-0.2) Sodium Level 139 mmol/L (136-145) Potassium Level 3.9 mmol/L (3.5-5.1) Chloride Level 102 mmol/L (98-107) Carbon Dioxide Level 28 mmol/L (21-32) Anion Gap 9 (6-14) Blood Urea Nitrogen 23 mg/dL (8-26) Creatinine 0.9 mg/dL (0.7-1.3) Estimated GFR (Cockcroft-Gault) 80.2 BUN/Creatinine Ratio 26 (6-20) Glucose Level 129 mg/dL (70-99) Calcium Level 8.9 mg/dL (8.5-10.1) Total Bilirubin 0.4 mg/dL (0.2-1.0) Aspartate Amino Transf (AST/SGOT) 12 U/L (15-37) Alanine Aminotransferase (ALT/SGPT) 16 U/L (16-63) Alkaline Phosphatase 78 U/L (46-116) Total Protein 7.1 g/dL (6.4-8.2) Albumin 3.3 g/dL (3.4-5.0) Albumin/Globulin Ratio 0.9 (1.0-1.7) Triglycerides Level 127 mg/dL (0-150) Cholesterol Level 121 mg/dL (0-200) LDL Cholesterol, Calculated 66 mg/dL (0-100) VLDL Cholesterol, Calculated 25 mg/dL (0-40) Non-HDL Cholesterol Calculated 91 mg/dL (0-129) HDL Cholesterol 30 mg/dL (40-60) Cholesterol/HDL Ratio 4.0 Medications Current Medications Aspirin (SolAeroMed Aspirin) 325 mg 1X ONCE PO Last administered on 06/02/19at 13:06; Start 06/02/19 at 11:45; Stop 06/02/19 at 11:46; Status DC Nitroglycerin (Nitrostat) 0.4 mg PRN Q5MIN PRN SL CP RATING > 1/10; Start 06/02/19 at 11:45; Stop 06/02/19 at 14:40; Status DC Morphine Sulfate (Morphine Sulfate) 4 mg PRN Q15MIN PRN IV/SQ PAIN GREATER THAN 3/10 Last administered on 06/02/19at 13:09; Start 06/02/19 at 11:45; Stop 06/03/19 at 11:44 Magnesium Sulfate/ Dextrose 100 ml @ 100 mls/hr 1X ONCE IV Last administered on 06/02/19at 15:01; Start 06/02/19 at 13:45; Stop 06/02/19 at 14:44; Status DC Ondansetron HCl (Zofran) 4 mg PRN Q8HRS PRN IV NAUSEA/VOMITING; Start 06/02/19 at 14:30; Stop 06/03/19 at 14:29 Morphine Sulfate (Morphine Sulfate) 4 mg PRN Q2HR PRN IV PAIN; Start 06/02/19 at 14:30; Stop 06/03/19 at 14:29 Acetaminophen (Tylenol) 650 mg PRN Q4HRS PRN PO FEVER; Start 06/02/19 at 14:30; Stop 06/03/19 at 14:29 Nitroglycerin (Nitrostat) 0.4 mg PRN Q5MIN PRN SL CHEST PAIN; Start 06/02/19 at 14:30; Stop 06/03/19 at 14:29 Lidocaine HCl (Xylocaine-Mpf 1% 2ml Vial) 2 ml STK-MED ONCE .ROUTE ; Start 06/02/19 at 15:15; Stop 06/02/19 at 15:15; Status DC Iohexol (Omnipaque 300 Mg/ml) 100 ml STK-MED ONCE .ROUTE ; Start 06/02/19 at 15:15; Stop 06/02/19 at 15:15; Status DC Heparin Sodium/ Sodium Chloride 1,000 ml @ As Directed STK-MED ONCE .ROUTE ; Start 06/02/19 at 15:15; Stop 06/02/19 at 15:15; Status DC Fentanyl Citrate (Fentanyl 2ml Vial) 100 mcg STK-MED ONCE .ROUTE ; Start 06/02/19 at 15:34; Stop 06/02/19 at 15:35; Status DC Midazolam HCl (Versed) 2 mg STK-MED ONCE .ROUTE ; Start 06/02/19 at 15:34; Stop 06/02/19 at 15:35; Status DC Heparin Sodium (Porcine) (Heparin Sodium) 10,000 unit STK-MED ONCE .ROUTE ; Start 06/02/19 at 15:34; Stop 06/02/19 at 15:35; Status DC Verapamil HCl (Verapamil) 5 mg STK-MED ONCE .ROUTE ; Start 06/02/19 at 15:34; Stop 06/02/19 at 15:35; Status DC Nitroglycerin (Nitroglycerin) 200 mcg STK-MED ONCE .ROUTE ; Start 06/02/19 at 15:34; Stop 06/02/19 at 15:35; Status DC Nitroglycerin (Nitroglycerin) 200 mcg 1X ONCE IART Last administered on 06/02/19at 16:13; Start 06/02/19 at 16:15; Stop 06/02/19 at 16:19; Status DC Verapamil HCl (Verapamil) 2.5 mg 1X ONCE IART Last administered on 06/02/19at 16:14; Start 06/02/19 at 16:15; Stop 06/02/19 at 16:19; Status DC Heparin Sodium (Porcine) (Heparin Sodium) 2,500 unit 1X ONCE IART Last administered on 06/02/19at 16:13; Start 06/02/19 at 16:15; Stop 06/02/19 at 16:19; Status DC Heparin Sodium/ Sodium Chloride (HEPARIN for ARTERIAL LINE FLUSH) 1,000 unit 1X ONCE IART Last administered on 06/02/19at 16:13; Start 06/02/19 at 16:15; Stop 06/02/19 at 16:19; Status DC Midazolam HCl (Versed) 2 mg 1X ONCE IV Last administered on 06/02/19at 16:15; Start 06/02/19 at 16:15; Stop 06/02/19 at 16:19; Status DC Fentanyl Citrate (Fentanyl 2ml Vial) 50 mcg 1X ONCE IV Last administered on 06/02/19at 16:15; Start 06/02/19 at 16:15; Stop 06/02/19 at 16:19; Status DC Iohexol (Omnipaque 300 Mg/ml) 71 ml 1X ONCE IART Last administered on 06/02/19at 16:15; Start 06/02/19 at 16:15; Stop 06/02/19 at 16:19; Status DC Lidocaine HCl (Xylocaine-Mpf 1% 2ml Vial) 2 ml 1X ONCE INJ Last administered on 06/02/19at 16:13; Start 06/02/19 at 16:15; Stop 06/02/19 at 16:19; Status DC Info (CONTRAST GIVEN -- Rx MONITORING) 1 each PRN DAILY PRN MC SEE COMMENTS; Start 06/02/19 at 16:30; Stop 06/04/19 at 16:29 Insulin Human Lispro (HumaLOG) 0-7 UNITS TIDWMEALS SQ Last administered on 06/02/19at 18:09; Start 06/02/19 at 18:00 Dextrose (Dextrose 50%-Water Syringe) 12.5 gm PRN Q15MIN PRN IV SEE COMMENTS; Start 06/02/19 at 17:30 Amlodipine Besylate (Norvasc) 5 mg DAILY PO Last administered on 06/03/19at 08:09; Start 06/02/19 at 18:00 Atorvastatin Calcium (Lipitor) 20 mg QHS PO Last administered on 06/02/19at 20:28; Start 06/02/19 at 21:00 Hydralazine HCl (Apresoline) 50 mg BID PO Last administered on 06/03/19at 08:10; Start 06/02/19 at 21:00 Lisinopril (Prinivil) 40 mg DAILY PO Last administered on 06/03/19at 08:09; Start 06/02/19 at 18:00 Glipizide (Glucotrol) 5 mg BIDBFRMEAL PO Last administered on 06/03/19at 08:10; Start 06/02/19 at 18:00 Pantoprazole Sodium (Protonix) 40 mg DAILYAC PO Last administered on 06/03/19at 08:09; Start 06/02/19 at 18:00 Pioglitazone HCl (Actos) 30 mg DAILY PO Last administered on 06/03/19at 08:09; Start 06/02/19 at 18:00 Active Scripts Active Reported Hydralazine Hcl 50 Mg Tablet 1 Tab PO BID Amlodipine Besylate 5 Mg Tablet 5 Mg PO DAILY Protonix (Pantoprazole Sodium) 20 Mg Tablet.dr 40 Mg PO DAILY Actos (Pioglitazone Hcl) 30 Mg Tablet 30 Mg PO DAILY Lisinopril 40 Mg Tablet 40 Mg PO DAILY Glipizide 10 Mg Tablet 0.5 Tab PO BID Atorvastatin Calcium 20 Mg Tablet 1 Tab PO DAILY Vitals/I & O Vital Sign - Last 24 Hours 06/02/19 06/02/19 06/02/19 06/02/19 11:43 12:40 13:09 13:10 Temp 97.6 97.6 Pulse 100 98 100 Resp 16 18 24 18 B/P (MAP) 155/71 (99) 175/71 (105) 164/84 (110) Pulse Ox 97 95 95 95 O2 Delivery Room Air Room Air Room Air Room Air 06/02/19 06/02/19 06/02/19 06/02/19 13:40 13:42 14:10 15:09 Pulse 93 100 94 Resp 18 19 18 18 B/P (MAP) 152/76 (101) 155/80 (105) 157/88 (111) Pulse Ox 96 96 97 94 O2 Delivery Room Air Room Air Room Air Room Air 06/02/19 06/02/19 06/02/19 06/02/19 16:14 16:15 16:17 16:30 Pulse 85 87 83 Resp 17 17 Pulse Ox 96 96 90 O2 Delivery Nasal Cannula Nasal Cannula O2 Flow Rate 2.0 2.0 2.0 06/02/19 06/02/19 06/02/19 06/02/19 16:30 17:15 17:30 17:45 Temp 97.9 97.9 Pulse 83 80 90 84 Resp 18 B/P (MAP) 137/77 (97) Pulse Ox 90 86 95 95 O2 Delivery Room Air Nasal Cannula Nasal Cannula Nasal Cannula O2 Flow Rate 2.0 2.0 2.0 06/02/19 06/02/19 06/02/19 06/02/19 18:03 18:03 18:11 18:15 Pulse 83 83 79 B/P (MAP) 137/77 137/77 Pulse Ox 91 O2 Delivery Nasal Cannula Nasal Cannula O2 Flow Rate 2.0 2.0 06/02/19 06/02/19 06/02/19 06/02/19 19:00 19:30 19:45 20:29 Temp 97.9 97.9 Pulse 76 72 72 Resp 16 B/P (MAP) 170/71 (104) 151/72 (98) 156/77 Pulse Ox 97 O2 Delivery Room Air Nasal Cannula O2 Flow Rate 2.0 06/02/19 06/02/19 06/03/19 06/03/19 20:30 23:00 03:00 07:02 Temp 97.7 97.5 98.0 97.7 97.5 98.0 Pulse 72 77 68 93 Resp 20 20 20 B/P (MAP) 156/77 (103) 176/76 (109) 141/67 (91) 185/92 (123) Pulse Ox 96 95 95 O2 Delivery Room Air Room Air Room Air 06/03/19 06/03/19 06/03/19 08:09 08:09 08:10 Pulse 85 85 85 Intake and Output 1006/02/19 06/03/19 15:00 23:00 07:00 Intake Total 240 ml 1050 ml Output Total 200 ml 300 ml Balance 40 ml 750 ml RADHA PLASENCIA MD Jun 03, 2019 08:45
--- NOTE | 2019-06-03 09:18 | CARD ---
MR#: [id number] Date of Study: 06/03/2019 Ordering Physician: JANET FARRELL, Referring Physician: Lisbet MOLINA: Myranda Alarcon APPROVED REPORT EXAM: Two-dimensional and M-mode echocardiogram with Doppler and color Doppler. Other Information Quality : AverageHR: 78bpm INDICATION Chest Pain 2D DIMENSIONS RVDd3.1 (2.9-3.5cm)Left Atrium(2D)5.2 (1.6-4.0cm) IVSd1.3 (0.7-1.1cm)Aortic Root(2D)2.5 (2.0-3.7cm) LVDd5.4 (3.9-5.9cm)LVOT Diameter2.2 (1.8-2.4cm) PWd1.1 (0.7-1.1cm)LVDs3.2 (2.5-4.0cm) FS (%) 41.2 %SV99.7 ml LVEF(%)71.5 (>50%) Aortic Valve AoV Peak Leander.161.6cm/sAoV VTI31.1cm AO Peak GR.10.4mmHgLVOT Peak Leander.131.6cm/s AO Mean GR.6mmHgAVA (VMAX)3.17cm2 Mitral Valve MV E Awjoihow85.9cm/sMV DECEL WTWP097cl MV A Tzwnudhs466.9cm/sE/A Ratio0.7 Pulmonary Valve PV Peak Khsiwqkx012.2cm/s Pulmonary Vein S1 Vubixawl27.4cm/sD2 Hlcnfiri16.1cm/s LEFT VENTRICLE The left ventricle is normal size. There is borderline to mild septal left ventricular hypertrophy. T he left ventricular systolic function is normal. The Ejection Fraction is 65-70%. There is normal LV segmental wall motion. Transmitral Doppler flow pattern is Grade I-abnormal relaxation pattern. RIGHT VENTRICLE The right ventricle is normal size. There is normal right ventricular wall thickness. The right ventr icular systolic function is normal. ATRIA The left atrium is moderately dilated. The right atrium size is normal. The interatrial septum is int act with no evidence for an atrial septal defect or patent foramen ovale as noted on 2-D or Doppler i maging. AORTIC VALVE The aortic valve is moderately thickened and calcified but opens well Doppler and Color Flow revealed no significant aortic regurgitation. There is no significant aortic valvular stenosis. MITRAL VALVE The mitral valve is thickened but opens well. There is no evidence of mitral valve prolapse. There is no mitral valve stenosis. Doppler and Color-flow revealed trace mitral regurgitation. TRICUSPID VALVE The tricuspid valve is normal in structure and function. Doppler and Color Flow revealed trace tricus pid regurgitation. There is no tricuspid valve stenosis. PULMONIC VALVE The pulmonic valve is not well visualized. Doppler and Color Flow revealed no pulmonic valvular regur gitation. GREAT VESSELS The aortic root is normal size. There is mild dilatation of the sinus of valsalva. The ascending aor ta is normal in size. Due to poor image quality, the IVC could not be assessed. PERICARDIAL EFFUSION There is no pleural effusion. There is no evidence of significant pericardial effusion. Critical Notification Critical Value: No <Conclusion> The left ventricular systolic function is normal. The Ejection Fraction is 65-70%. There is normal LV segmental wall motion. Transmitral Doppler flow pattern is Grade I-abnormal relaxation pattern. The left atrium is moderately dilated. Trace mitral regurgitation. Trace tricuspid regurgitation. There is no evidence of significant pericardial effusion. Signed by : Giancarlo Montero, Electronically Approved : 06/03/2019 09:17:46
[2019-06-03 10:33] VITALS: BP 142/70
--- NOTE | 2019-06-03 11:40 | PDOC3 ---
Discharge Summary Visit Information Date of Admission: Jun 02, 2019 Date of Discharge: Jun 03, 2019 Admitting Diagnosis: Chest pain Final Diagnosis Problems Medical Problems: (1) CAD (coronary artery disease) Status: Chronic (2) Chest pain Status: Acute (3) Chronic bundle branch block Status: Chronic (4) DM2 (diabetes mellitus, type 2) Status: Chronic (5) HLP (hyperkeratosis lenticularis perstans) Status: Chronic (6) HTN (hypertension) Status: Chronic (7) Morbid obesity Status: Chronic (8) Prostate CA Status: Chronic Brief Hospital Course Allergies Allergies Coded Allergies Type Severity Reaction Last Updated Verified No Known Drug Allergies 03/28/19 No Vital Signs Vital Signs Date Time Temp Pulse Resp B/P (MAP) Pulse Ox O2 Delivery O2 Flow Rate FiO2 06/03/19 10:33 98.3 66 20 142/70 (94) 97 Room Air 98.3 06/03/19 08:00 2.0 Lab Results Laboratory Tests Test 06/02/19 12:37 06/02/19 14:20 06/02/19 15:10 06/02/19 17:26 White Blood Count 8.1 x10^3/uL (4.0-11.0) Red Blood Count 4.42 x10^6/uL (4.30-5.70) Hemoglobin 13.2 g/dL (13.0-17.5) Hematocrit 39.3 % (39.0-53.0) Mean Corpuscular Volume 89 fL (79-100) Mean Corpuscular Hemoglobin 30 pg (25-35) Mean Corpuscular Hemoglobin Concent 34 g/dL (31-37) Red Cell Distribution Width 13.6 % (11.5-14.5) Platelet Count 177 x10^3/uL (140-400) Neutrophils (%) (Auto) 75 % (31-73) Lymphocytes (%) (Auto) 15 % (24-48) Monocytes (%) (Auto) 8 % (0-9) Eosinophils (%) (Auto) 2 % (0-3) Basophils (%) (Auto) 1 % (0-3) Neutrophils # (Auto) 6.0 x10^3/uL (1.8-7.7) Lymphocytes # (Auto) 1.2 x10^3/uL (1.0-4.8) Monocytes # (Auto) 0.6 x10^3/uL (0.0-1.1) Eosinophils # (Auto) 0.2 x10^3/uL (0.0-0.7) Basophils # (Auto) 0.1 x10^3/uL (0.0-0.2) D-Dimer (Genevieve) 0.39 ug/mlFEU (0.00-0.50) Sodium Level 137 mmol/L (136-145) Potassium Level 4.1 mmol/L (3.5-5.1) Chloride Level 99 mmol/L (98-107) Carbon Dioxide Level 30 mmol/L (21-32) Anion Gap 8 (6-14) Blood Urea Nitrogen 21 mg/dL (8-26) Creatinine 1.1 mg/dL (0.7-1.3) Estimated GFR (Cockcroft-Gault) 63.6 BUN/Creatinine Ratio 19 (6-20) Glucose Level 344 mg/dL (70-99) Hemoglobin A1c 8.7 % (4.8-5.6) Calcium Level 9.1 mg/dL (8.5-10.1) Magnesium Level 1.7 mg/dL (1.8-2.4) Total Bilirubin 0.3 mg/dL (0.2-1.0) Aspartate Amino Transf (AST/SGOT) 14 U/L (15-37) Alanine Aminotransferase (ALT/SGPT) 15 U/L (16-63) Alkaline Phosphatase 91 U/L (46-116) Creatine Kinase 56 U/L (39-308) Creatine Kinase MB (Mass) 1.2 ng/mL (0.0-3.6) Creatine Kinase MB Relative Index % (0-4) Troponin I Quantitative < 0.017 ng/mL (0.000-0.055) < 0.017 ng/mL (0.000-0.055) DT-And-X-Type Natriuretic Peptide 43 pg/mL (0-449) Total Protein 7.5 g/dL (6.4-8.2) Albumin 3.4 g/dL (3.4-5.0) Albumin/Globulin Ratio 0.8 (1.0-1.7) Thyroid Stimulating Hormone (TSH) 3.179 uIU/mL (0.358-3.74) Urine Collection Type Unknown Urine Color Yellow Urine Clarity Clear Urine pH 8.5 Urine Specific [place] >=1.030 Urine Protein 100 mg/dL (NEG-TRACE) Urine Glucose (UA) 500 mg/dL (NEG) Urine Ketones (Stick) Trace mg/dL (NEG) Urine Blood Negative (NEG) Urine Nitrite Positive (NEG) Urine Bilirubin Negative (NEG) Urine Urobilinogen Dipstick 0.2 mg/dL (0.2 mg/dL) Urine Leukocyte Esterase Moderate (NEG) Urine RBC Occ /HPF (0-2) Urine WBC >40 /HPF (0-4) Urine Bacteria Many /HPF (0-FEW) Urine Mucus Mod /LPF Urine Opiates Screen Pos (NEG) Urine Methadone Screen Neg (NEG) Urine Barbiturates Neg (NEG) Urine Phencyclidine Screen Neg (NEG) Urine Amphetamine/Methamphetamine Neg (NEG) Urine Benzodiazepines Screen Neg (NEG) Urine Cocaine Screen Neg (NEG) Urine Cannabinoids Screen Neg (NEG) Urine Ethyl Alcohol Neg (NEG) Glucose (Fingerstick) 255 mg/dL (70-99) Test 06/02/19 18:15 06/02/19 20:20 06/03/19 04:15 06/03/19 07:08 Troponin I Quantitative < 0.017 ng/mL (0.000-0.055) Glucose (Fingerstick) 159 mg/dL (70-99) 147 mg/dL (70-99) White Blood Count 9.0 x10^3/uL (4.0-11.0) Red Blood Count 4.22 x10^6/uL (4.30-5.70) Hemoglobin 12.4 g/dL (13.0-17.5) Hematocrit 37.5 % (39.0-53.0) Mean Corpuscular Volume 89 fL (79-100) Mean Corpuscular Hemoglobin 30 pg (25-35) Mean Corpuscular Hemoglobin Concent 33 g/dL (31-37) Red Cell Distribution Width 13.7 % (11.5-14.5) Platelet Count 175 x10^3/uL (140-400) Neutrophils (%) (Auto) 61 % (31-73) Lymphocytes (%) (Auto) 25 % (24-48) Monocytes (%) (Auto) 10 % (0-9) Eosinophils (%) (Auto) 3 % (0-3) Basophils (%) (Auto) 1 % (0-3) Neutrophils # (Auto) 5.5 x10^3/uL (1.8-7.7) Lymphocytes # (Auto) 2.3 x10^3/uL (1.0-4.8) Monocytes # (Auto) 0.9 x10^3/uL (0.0-1.1) Eosinophils # (Auto) 0.3 x10^3/uL (0.0-0.7) Basophils # (Auto) 0.1 x10^3/uL (0.0-0.2) Sodium Level 139 mmol/L (136-145) Potassium Level 3.9 mmol/L (3.5-5.1) Chloride Level 102 mmol/L (98-107) Carbon Dioxide Level 28 mmol/L (21-32) Anion Gap 9 (6-14) Blood Urea Nitrogen 23 mg/dL (8-26) Creatinine 0.9 mg/dL (0.7-1.3) Estimated GFR (Cockcroft-Gault) 80.2 BUN/Creatinine Ratio 26 (6-20) Glucose Level 129 mg/dL (70-99) Calcium Level 8.9 mg/dL (8.5-10.1) Total Bilirubin 0.4 mg/dL (0.2-1.0) Aspartate Amino Transf (AST/SGOT) 12 U/L (15-37) Alanine Aminotransferase (ALT/SGPT) 16 U/L (16-63) Alkaline Phosphatase 78 U/L (46-116) Total Protein 7.1 g/dL (6.4-8.2) Albumin 3.3 g/dL (3.4-5.0) Albumin/Globulin Ratio 0.9 (1.0-1.7) Triglycerides Level 127 mg/dL (0-150) Cholesterol Level 121 mg/dL (0-200) LDL Cholesterol, Calculated 66 mg/dL (0-100) VLDL Cholesterol, Calculated 25 mg/dL (0-40) Non-HDL Cholesterol Calculated 91 mg/dL (0-129) HDL Cholesterol 30 mg/dL (40-60) Cholesterol/HDL Ratio 4.0 Test 06/03/19 11:25 Glucose (Fingerstick) 206 mg/dL (70-99) Laboratory Tests Test 06/02/19 12:37 06/02/19 14:20 06/02/19 15:10 06/02/19 17:26 White Blood Count 8.1 x10^3/uL (4.0-11.0) Red Blood Count 4.42 x10^6/uL (4.30-5.70) Hemoglobin 13.2 g/dL (13.0-17.5) Hematocrit 39.3 % (39.0-53.0) Mean Corpuscular Volume 89 fL (79-100) Mean Corpuscular Hemoglobin 30 pg (25-35) Mean Corpuscular Hemoglobin Concent 34 g/dL (31-37) Red Cell Distribution Width 13.6 % (11.5-14.5) Platelet Count 177 x10^3/uL (140-400) Neutrophils (%) (Auto) 75 % (31-73) Lymphocytes (%) (Auto) 15 % (24-48) Monocytes (%) (Auto) 8 % (0-9) Eosinophils (%) (Auto) 2 % (0-3) Basophils (%) (Auto) 1 % (0-3) Neutrophils # (Auto) 6.0 x10^3/uL (1.8-7.7) Lymphocytes # (Auto) 1.2 x10^3/uL (1.0-4.8) Monocytes # (Auto) 0.6 x10^3/uL (0.0-1.1) Eosinophils # (Auto) 0.2 x10^3/uL (0.0-0.7) Basophils # (Auto) 0.1 x10^3/uL (0.0-0.2) D-Dimer (Genevieve) 0.39 ug/mlFEU (0.00-0.50) Sodium Level 137 mmol/L (136-145) Potassium Level 4.1 mmol/L (3.5-5.1) Chloride Level 99 mmol/L (98-107) Carbon Dioxide Level 30 mmol/L (21-32) Anion Gap 8 (6-14) Blood Urea Nitrogen 21 mg/dL (8-26) Creatinine 1.1 mg/dL (0.7-1.3) Estimated GFR (Cockcroft-Gault) 63.6 BUN/Creatinine Ratio 19 (6-20) Glucose Level 344 mg/dL (70-99) Hemoglobin A1c 8.7 % (4.8-5.6) Calcium Level 9.1 mg/dL (8.5-10.1) Magnesium Level 1.7 mg/dL (1.8-2.4) Total Bilirubin 0.3 mg/dL (0.2-1.0) Aspartate Amino Transf (AST/SGOT) 14 U/L (15-37) Alanine Aminotransferase (ALT/SGPT) 15 U/L (16-63) Alkaline Phosphatase 91 U/L (46-116) Creatine Kinase 56 U/L (39-308) Creatine Kinase MB (Mass) 1.2 ng/mL (0.0-3.6) Creatine Kinase MB Relative Index % (0-4) Troponin I Quantitative < 0.017 ng/mL (0.000-0.055) < 0.017 ng/mL (0.000-0.055) SE-Ghi-M-Type Natriuretic Peptide 43 pg/mL (0-449) Total Protein 7.5 g/dL (6.4-8.2) Albumin 3.4 g/dL (3.4-5.0) Albumin/Globulin Ratio 0.8 (1.0-1.7) Thyroid Stimulating Hormone (TSH) 3.179 uIU/mL (0.358-3.74) Urine Collection Type Unknown Urine Color Yellow Urine Clarity Clear Urine pH 8.5 Urine Specific [place] >=1.030 Urine Protein 100 mg/dL (NEG-TRACE) Urine Glucose (UA) 500 mg/dL (NEG) Urine Ketones (Stick) Trace mg/dL (NEG) Urine Blood Negative (NEG) Urine Nitrite Positive (NEG) Urine Bilirubin Negative (NEG) Urine Urobilinogen Dipstick 0.2 mg/dL (0.2 mg/dL) Urine Leukocyte Esterase Moderate (NEG) Urine RBC Occ /HPF (0-2) Urine WBC >40 /HPF (0-4) Urine Bacteria Many /HPF (0-FEW) Urine Mucus Mod /LPF Urine Opiates Screen Pos (NEG) Urine Methadone Screen Neg (NEG) Urine Barbiturates Neg (NEG) Urine Phencyclidine Screen Neg (NEG) Urine Amphetamine/Methamphetamine Neg (NEG) Urine Benzodiazepines Screen Neg (NEG) Urine Cocaine Screen Neg (NEG) Urine Cannabinoids Screen Neg (NEG) Urine Ethyl Alcohol Neg (NEG) Glucose (Fingerstick) 255 mg/dL (70-99) Test 06/02/19 18:15 06/02/19 20:20 06/03/19 04:15 06/03/19 07:08 Troponin I Quantitative < 0.017 ng/mL (0.000-0.055) Glucose (Fingerstick) 159 mg/dL (70-99) 147 mg/dL (70-99) White Blood Count 9.0 x10^3/uL (4.0-11.0) Red Blood Count 4.22 x10^6/uL (4.30-5.70) Hemoglobin 12.4 g/dL (13.0-17.5) Hematocrit 37.5 % (39.0-53.0) Mean Corpuscular Volume 89 fL (79-100) Mean Corpuscular Hemoglobin 30 pg (25-35) Mean Corpuscular Hemoglobin Concent 33 g/dL (31-37) Red Cell Distribution Width 13.7 % (11.5-14.5) Platelet Count 175 x10^3/uL (140-400) Neutrophils (%) (Auto) 61 % (31-73) Lymphocytes (%) (Auto) 25 % (24-48) Monocytes (%) (Auto) 10 % (0-9) Eosinophils (%) (Auto) 3 % (0-3) Basophils (%) (Auto) 1 % (0-3) Neutrophils # (Auto) 5.5 x10^3/uL (1.8-7.7) Lymphocytes # (Auto) 2.3 x10^3/uL (1.0-4.8) Monocytes # (Auto) 0.9 x10^3/uL (0.0-1.1) Eosinophils # (Auto) 0.3 x10^3/uL (0.0-0.7) Basophils # (Auto) 0.1 x10^3/uL (0.0-0.2) Sodium Level 139 mmol/L (136-145) Potassium Level 3.9 mmol/L (3.5-5.1) Chloride Level 102 mmol/L (98-107) Carbon Dioxide Level 28 mmol/L (21-32) Anion Gap 9 (6-14) Blood Urea Nitrogen 23 mg/dL (8-26) Creatinine 0.9 mg/dL (0.7-1.3) Estimated GFR (Cockcroft-Gault) 80.2 BUN/Creatinine Ratio 26 (6-20) Glucose Level 129 mg/dL (70-99) Calcium Level 8.9 mg/dL (8.5-10.1) Total Bilirubin 0.4 mg/dL (0.2-1.0) Aspartate Amino Transf (AST/SGOT) 12 U/L (15-37) Alanine Aminotransferase (ALT/SGPT) 16 U/L (16-63) Alkaline Phosphatase 78 U/L (46-116) Total Protein 7.1 g/dL (6.4-8.2) Albumin 3.3 g/dL (3.4-5.0) Albumin/Globulin Ratio 0.9 (1.0-1.7) Triglycerides Level 127 mg/dL (0-150) Cholesterol Level 121 mg/dL (0-200) LDL Cholesterol, Calculated 66 mg/dL (0-100) VLDL Cholesterol, Calculated 25 mg/dL (0-40) Non-HDL Cholesterol Calculated 91 mg/dL (0-129) HDL Cholesterol 30 mg/dL (40-60) Cholesterol/HDL Ratio 4.0 Test 06/03/19 11:25 Glucose (Fingerstick) 206 mg/dL (70-99) Brief Hospital Course Mr Jacobs is 83 yo male w/ PMHx HTN, DM2, HLD, CAD with prior LAD stenting admitted for complains of chest pain. 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 Reports that he has been having midchest pressure in the last 4 days. No nausea but has been having some discomfort in his abdomen as well. No diarrhea, fever or chills. He sometimes have SOA. His chest pain also gets worse with exertion even putting his clothes on. Denies any recent falls or injury. He does not follow with any websphere architect as an outpt and not sure about last ischemic workup, therefore went urgently to cardiac Cath w/o significant disease and patent stent noted. He feels improved today. Still with a bit of abdominal pain and some hypoxia. He has had his nephew arrange suprapubic catheter exchange and urology f/u on 06/07/19. Echo The left ventricular systolic function is normal. The Ejection Fraction is 65-70%. There is normal LV segmental wall motion. Transmitral Doppler flow pattern is Grade I-abnormal relaxation pattern. The left atrium is moderately dilated. Trace mitral regurgitation. Trace tricuspid regurgitation. There is no evidence of significant pericardial effusion. Problem list: Chest pain - UA features, s/p cardiac cath, no disease Chronic RBBB CAD - unclear past PCI HTN: controlled HLP DM2 - uncontrolled Morbid obesity Hx of prostate CA with TURP: suprapubic cath in place Greater than 30 minutes spent on d/c Discharge Information Condition at Discharge: Improved Follow Up: Weeks (1) Disposition/Orders: D/C to Home w/ HH Scheduled Amlodipine Besylate (Amlodipine Besylate) 5 Mg Tablet, 5 MG PO DAILY for BP, (Reported) Entered as Reported by: SHAD SUMNER on 03/28/19 1228 Last Taken: Unknown Dose on 06/01/19 Last Action: Continued on 06/02/191733 by PIERRE MIRANDA Atorvastatin Calcium (Atorvastatin Calcium) 20 Mg Tablet, 1 TAB PO DAILY for HLD, (Reported) Entered as Reported by: ROWDY HERNANDES on 03/24/15 1651 Last Taken: Unknown Dose on 06/01/19 Last Action: Continued on 06/02/191733 by PIERRE MIRANDA Glipizide (Glipizide) 10 Mg Tablet, 0.5 TAB PO BID for Diabetes, (Reported) Entered as Reported by: RAULITO BERGMAN on 07/18/15 1344 Last Taken: Unknown Dose on 06/01/19 Last Action: Converted on 06/02/191733 by PIERRE MIRANDA Hydralazine Hcl (Hydralazine Hcl) 50 Mg Tablet, 1 TAB PO BID for HTN, #180 Ref 3 (Reported) Entered as Reported by: PIERRE MIRANDA on 06/02/191732 Last Taken: Unknown Dose on 06/01/19 Last Action: Continued on 06/02/191733 by PIERRE MIRANDA Lisinopril (Lisinopril) 40 Mg Tablet, 40 MG PO DAILY for HTN, (Reported) Entered as Reported by: CAM SCHROEDER on 11/07/15 1056 Last Taken: Unknown Dose on 06/01/19 Last Action: Continued on 06/02/191733 by PIERRE MIRANDA Pantoprazole Sodium (Protonix) 20 Mg Tablet.dr, 40 MG PO DAILY for GERD, (Reported) Entered as Reported by: SHAD SUMNER on 03/28/198 Last Taken: Unknown Dose on 06/01/19 Last Action: Converted on 06/02/191733 by PIERRE MIRANDA Pioglitazone Hcl (Actos) 30 Mg Tablet, 30 MG PO DAILY for IDDM, (Reported) Entered as Reported by: SHAD SUMNER on 03/28/191227 Last Taken: Unknown Dose on 06/01/19 Last Action: Converted on 06/02/191733 by RADHA HULL MD Jun 03, 2019 11:40
--- NOTE | 2019-06-03 13:23 | PDOC ---
JANET FARRELL INTERNATIONAL GUEST COORDINATOR 06/03/19 1323: CARDIO Progress Notes Date and Time Date of Service 06/03/2019 Time of Evaluation 1300 Subjective Subjective: No Chest Pain, No shortness of breath, No Palpitations Vitals Vitals Vital Signs Date Time Temp Pulse Resp B/P (MAP) Pulse Ox O2 Delivery O2 Flow Rate FiO2 06/03/19 10:33 98.3 66 20 142/70 (94) 97 Room Air 98.3 06/03/19 08:00 2.0 Weight Weight [ ] Input and Output Intake and Output Intake and Output 06/03/19 07:00 Intake Total 1290 ml Output Total 500 ml Balance 790 ml Intake Oral 1290 ml Output Urine Total 500 ml Laboratory Labs Laboratory Tests Test 06/02/19 14:20 06/02/19 15:10 06/02/19 17:26 06/02/19 18:15 Urine Collection Type Unknown Urine Color Yellow Urine Clarity Clear Urine pH 8.5 Urine Specific [place] >=1.030 Urine Protein 100 mg/dL (NEG-TRACE) Urine Glucose (UA) 500 mg/dL (NEG) Urine Ketones (Stick) Trace mg/dL (NEG) Urine Blood Negative (NEG) Urine Nitrite Positive (NEG) Urine Bilirubin Negative (NEG) Urine Urobilinogen Dipstick 0.2 mg/dL (0.2 mg/dL) Urine Leukocyte Esterase Moderate (NEG) Urine RBC Occ /HPF (0-2) Urine WBC >40 /HPF (0-4) Urine Bacteria Many /HPF (0-FEW) Urine Mucus Mod /LPF Urine Opiates Screen Pos (NEG) Urine Methadone Screen Neg (NEG) Urine Barbiturates Neg (NEG) Urine Phencyclidine Screen Neg (NEG) Urine Amphetamine/Methamphetamine Neg (NEG) Urine Benzodiazepines Screen Neg (NEG) Urine Cocaine Screen Neg (NEG) Urine Cannabinoids Screen Neg (NEG) Urine Ethyl Alcohol Neg (NEG) Troponin I Quantitative < 0.017 ng/mL (0.000-0.055) < 0.017 ng/mL (0.000-0.055) Glucose (Fingerstick) 255 mg/dL (70-99) Test 06/02/19 20:20 06/03/19 04:15 06/03/19 07:08 06/03/19 11:25 Glucose (Fingerstick) 159 mg/dL (70-99) 147 mg/dL (70-99) 206 mg/dL (70-99) White Blood Count 9.0 x10^3/uL (4.0-11.0) Red Blood Count 4.22 x10^6/uL (4.30-5.70) Hemoglobin 12.4 g/dL (13.0-17.5) Hematocrit 37.5 % (39.0-53.0) Mean Corpuscular Volume 89 fL (79-100) Mean Corpuscular Hemoglobin 30 pg (25-35) Mean Corpuscular Hemoglobin Concent 33 g/dL (31-37) Red Cell Distribution Width 13.7 % (11.5-14.5) Platelet Count 175 x10^3/uL (140-400) Neutrophils (%) (Auto) 61 % (31-73) Lymphocytes (%) (Auto) 25 % (24-48) Monocytes (%) (Auto) 10 % (0-9) Eosinophils (%) (Auto) 3 % (0-3) Basophils (%) (Auto) 1 % (0-3) Neutrophils # (Auto) 5.5 x10^3/uL (1.8-7.7) Lymphocytes # (Auto) 2.3 x10^3/uL (1.0-4.8) Monocytes # (Auto) 0.9 x10^3/uL (0.0-1.1) Eosinophils # (Auto) 0.3 x10^3/uL (0.0-0.7) Basophils # (Auto) 0.1 x10^3/uL (0.0-0.2) Sodium Level 139 mmol/L (136-145) Potassium Level 3.9 mmol/L (3.5-5.1) Chloride Level 102 mmol/L (98-107) Carbon Dioxide Level 28 mmol/L (21-32) Anion Gap 9 (6-14) Blood Urea Nitrogen 23 mg/dL (8-26) Creatinine 0.9 mg/dL (0.7-1.3) Estimated GFR (Cockcroft-Gault) 80.2 BUN/Creatinine Ratio 26 (6-20) Glucose Level 129 mg/dL (70-99) Calcium Level 8.9 mg/dL (8.5-10.1) Total Bilirubin 0.4 mg/dL (0.2-1.0) Aspartate Amino Transf (AST/SGOT) 12 U/L (15-37) Alanine Aminotransferase (ALT/SGPT) 16 U/L (16-63) Alkaline Phosphatase 78 U/L (46-116) Total Protein 7.1 g/dL (6.4-8.2) Albumin 3.3 g/dL (3.4-5.0) Albumin/Globulin Ratio 0.9 (1.0-1.7) Triglycerides Level 127 mg/dL (0-150) Cholesterol Level 121 mg/dL (0-200) LDL Cholesterol, Calculated 66 mg/dL (0-100) VLDL Cholesterol, Calculated 25 mg/dL (0-40) Non-HDL Cholesterol Calculated 91 mg/dL (0-129) HDL Cholesterol 30 mg/dL (40-60) Cholesterol/HDL Ratio 4.0 Physical Exam HEENT: Neck Supple W Full Motion Chest: Symmetric LUNGS: Clear to Auscultation Heart: S1S2, RRR (SR) Abdomen: Soft N/T Extremities: No Calf Tenderness Neurology: alert, oriented, follow commands Assessment Assessment 1. Chest pain: potentially from labile BP. No arrhythmias. LHC revelaed 30% ISR to LAD otherwise no other significant lesions 2. Chronic RBBB 3. CAD 4. HTN: labile episodes 5. HLP 6. DM2: A1C 8.7. BG improving. Per PCP 7. Morbid obesity 8. Hx of prostate CA with TURP: suprapubic cath in place Recommendations 1. ASA. statin, continue with current BP regimen. Hydralazine added. 2. Follow up in office. May benefit with home health 3. Waiting 6 min walk may need home O2. CHRISTOPHE AVILES MD 06/04/19 0743: CARDIO Progress Notes Plan Plan Late entry for 06/03/2019. Patient seen and examined. Agree with above nurse practitioner note. Supportive care. Okay for discharge. JANET FARRELL INTERNATIONAL GUEST COORDINATOR Jun 03, 2019 13:23 CHRISTOPHE AVILES MD Jun 04, 2019 07:43
[2019-06-03 14:10] VITALS: BP 191/85
--- NOTE | 2019-06-03 14:22 | NUR ---
SS following for discharge planning. SS reviewed pt chart. Pt is from home and is currently on room air. PT and six minute walk ordered. SS will continue to follow for discharge planning.
[2019-06-03 15:15] VITALS: BP 140/73
--- NOTE | 2019-06-03 15:17 | SNU/HH DC ---
DISCHARGE WITH HOME HEALTH DISCHARGE INFORMATION: Discharge Date: Jun 03, 2019 Final Diagnosis: Problems Medical Problems: (1) CAD (coronary artery disease) Status: Chronic (2) Chest pain Status: Acute (3) Chronic bundle branch block Status: Chronic (4) DM2 (diabetes mellitus, type 2) Status: Chronic (5) HLP (hyperkeratosis lenticularis perstans) Status: Chronic (6) HTN (hypertension) Status: Chronic (7) Morbid obesity Status: Chronic (8) Prostate CA Status: Chronic Condition on Discharge: Stable CODE STATUS: Code Status: Full HOME HEALTH: Face to Face: I certify this patient is under my care and that I, or a nurse practitioner or physician's assistant womens volleyball coach working with me, had a face to face encounter that meets the physician face to face encounter requirements with this patient on 06/03/19. Medical Complications: Other (Suprapubic catheter) RN For Eval/Treatment: Yes Pt Meets Homebound Status: Limited distance walking, Poor cognition, Psychological condition POST DISCHARGE ORDERS: Activity Instructions for Disc: Resume previous activity, Activity as tolerated Weight Bearing Status after Di: As tolerated Bathing Instructions: Shower-keep dressing dry, No Tub Bath until see DIET AFTER DISCHARGE: ADA Wound/Incision Care: Keep wound/cast CDI DC TO SNF OTHER: maintain chambers until seen by Dr Mobley, urology CHECKS AFTER DISCHARGE: Checks after discharge: Check blood press - daily CERTIFICATION STATEMENT: Certification Statement: Certification Statement: Based on the above finding, I certify that this patient is confined to the home and needs intermittent fpc care, physical therapy and/or speech therapy, or continues to need occupational therapy.~ This patient is under my care, and I have initiated the establishment of the plan of care.~ This patient will be followed by myself or a community physician who will periodically review the plan of care. Home Meds Reported Medications Hydralazine Hcl (HYDRALAZINE HCL) 50 Mg Tablet, 1 TAB PO BID for HTN, #180 TAB 3 Refills 06/02/19 Amlodipine Besylate (AMLODIPINE BESYLATE) 5 Mg Tablet, 5 MG PO DAILY for BP, TAB 03/28/19 Pantoprazole Sodium (PROTONIX) 20 Mg Tablet.dr, 40 MG PO DAILY for GERD, TAB 03/28/19 Pioglitazone Hcl (ACTOS) 30 Mg Tablet, 30 MG PO DAILY for IDDM, TAB 03/28/19 Lisinopril (LISINOPRIL) 40 Mg Tablet, 40 MG PO DAILY for HTN 11/07/15 Glipizide (GLIPIZIDE) 10 Mg Tablet, 0.5 TAB PO BID for Diabetes 07/18/15 Atorvastatin Calcium (ATORVASTATIN CALCIUM) 20 Mg Tablet, 1 TAB PO DAILY for HLD 03/24/15 RADHA PLASENCIA MD Jun 03, 2019 15:17
--- NOTE | 2019-06-03 15:48 | NUR ---
SS following up with discharge planning. Discharge orders for home healthcare received. SS met with pt to discuss home healthcare and discharge planning. Pt agreeable to home healthcare and stated SS could send referral "anywhere." SS phoned and faxed discharge orders and referral to [facility], ; fax [phone]. Pt's RN notified.
--- NOTE | 2019-06-03 17:31 | NUR ---
Discharge: Teaching verbal and written. Reviewed medications, follow-up, Cardiac catheterization discharge instructions, chest pain, ect. Patient and nephew verbalized understanding. All belongings with patient. Security returned $4027.00 gary to patient. IV removed without complications. Arm board removed. Patient assisted off of unit via wheelchair accompanied by nurse and nephew Sumit
== END 2019-06-03 17:30 | disposition home health service (06) | DRG 287 ==
LOC: ER 11:17 → 2 NORTH 13:32
PROVIDERS: ADMIT Internal Medicine; ATTEND Internal Medicine
PROC: B2111ZZ Fluoroscopy of Multiple Coronary Arteries using Low Osmolar Contrast (ICD-10-PCS; principal; 2019-06-02)
PROC: B2151ZZ Fluoroscopy of Left Heart using Low Osmolar Contrast (ICD-10-PCS; 2019-06-02)
DX: I25.110 Atherosclerotic heart disease of native coronary artery with unstable angina pectoris (principal); Z68.41 Body mass index [BMI] 40.0-44.9, adult; E78.5 Hyperlipidemia, unspecified; I10 Essential (primary) hypertension; C61 Malignant neoplasm of prostate; E11.9 Type 2 diabetes mellitus without complications; E66.01 Morbid (severe) obesity due to excess calories; L85.9 Epidermal thickening, unspecified; M19.90 Unspecified osteoarthritis, unspecified site; I45.10 Unspecified right bundle-branch block; R09.02 Hypoxemia; Z82.49 Family history of ischemic heart disease and other diseases of the circulatory system; Z95.5 Presence of coronary angioplasty implant and graft; Z79.899 Other long term (current) drug therapy
CPT/HCPCS: 36415; 71045; 76705; 80053; 80061; 80307; 81001; 82553; 82962; 83036; 83735; 83880; 84443; 84484; 85025; 85379; 93005; 93306; 93454; 94618; 96365; 96375; 99152; 99153; C1769; C1892; J1644; J1815; J2250; J2270; J3010; J3475; J3490; Q9967; 99285-25; G0378

== ENCOUNTER → 2019-09-27 | Outpatient (CLI) | payer BC ==
[2019-07-09 21:45] VITALS: BP 144/74
[~2019-09-27] MED LIST changes: +HYDR-2869 PO; +IOHEXOL 240 MG/ML 50ML VIAL. PO ONE; +IOHEXOL 300 MG/ML 100ML VIAL. IV ONE
[2019-09-27 08:57] LABS: GFR 70.8
--- NOTE | 2019-09-27 15:53 | RAD ---
EXAM: CT Chest, Abdomen, and Pelvis with IV contrast INDICATION: Prostate cancer TECHNIQUE: Multi-detector row CT images were acquired from the thoracic inlet through the ischial tuberosities with the use of IV contrast. Sagittal and coronal images were acquired from the transaxial data. All CT scans performed at this facility utilize dose optimization techniques as appropriate to the exam, including the following: Automated exposure control and adjustment of the mA and/or KV according to patient size (this includes techniques or standardized protocols for targeted exams where dose is indication/reason for exam). IV CONTRAST: Administered ORAL CONTRAST: Not administered COMPARISON: Abdomen pelvis CT of 10/04/2017 without IV contrast FINDINGS: CHEST: CARDIOVASCULAR: Dense multivessel coronary calcifications. Normal heart size. No pericardial effusion. MEDIASTINUM & GUY: No adenopathy or masses. LUNGS: No pulmonary infiltrate, nodule, or other focal abnormality. PLEURAL SPACE: No pleural effusions or pneumothorax. OSSEOUS & SOFT TISSUE: Unremarkable ABDOMEN/PELVIS: LIVER: Unremarkable BILIARY SYSTEM: Gallbladder is unremarkable. Bile ducts are not dilated. PANCREAS: Unremarkable SPLEEN: Unremarkable ADRENALS: Unremarkable KIDNEYS & URETERS: 3 cm cyst in the inferior pole left kidney is unchanged. No stones, hydronephrosis or hydroureter no abnormally enhancing solid masses. BLADDER: Persistent diffuse urinary bladder wall thickening suspicious for cystitis, status post suprapubic catheter placement with the tip of the catheter abutting and possibly embedded within the posterior urinary bladder wall. REPRODUCTIVE ORGANS: Unremarkable GASTROINTESTINAL: The stomach, small bowel, and colon are unremarkable. The appendix is normal. MESENTERY/PERITONEUM/RETROPERITONEUM: Unremarkable VASCULAR: Retroaortic left renal vein. LYMPH NODES: No adenopathy OSSEOUS & SOFT TISSUES: Unremarkable IMPRESSION: 1. No evidence of metastatic disease in the chest abdomen or pelvis. 2. Cystitis with a suprapubic catheter in place. Whole body bone scan History: Prostate cancer Comparison: Chest abdomen pelvis CT same day Procedure: 25.0 mCI of Tc 99m MDP was injected intravenously and delayed scintigraphic images were obtained of the skeletal system. Findings: Urinary tract activity, and activity in the skeletal system compatible with multilevel degenerative changes, most conspicuous in the knees and shoulders bilaterally. No abnormal foci of uptake suspicious for osseous metastatic disease. Patient does have his suprapubic bladder catheter bag wrapped around his left knee, obscuring detail. Impression: 1. No evidence of bone metastases. Electronically signed by: Patty Ozuna MD (09/27/2019 3:50 PM) [id number]
== END | disposition home or self-care (01) ==
LOC: CT 08:30
PROVIDERS: ATTEND Radiology Radiation Oncology
DX: N30.90 Cystitis, unspecified without hematuria (principal); N28.1 Cyst of kidney, acquired; N32.89 Other specified disorders of bladder; C61 Malignant neoplasm of prostate
CPT/HCPCS: 36415; 71260; 74177; 78306; 82565; 84520; A9503; Q9966; Q9967

== ENCOUNTER 2020-02-28 11:51 | Emergency (ER) | payer BC ==
[~2020-02-28] VITALS: Ht 170.2 cm; Wt 113.6 kg
[~2020-02-28 11:51] MED LIST changes: +AMOX1TAB58 PO; +DOXY100T PO; -IOHEXOL 240 MG/ML 50ML VIAL. PO ONE; -IOHEXOL 300 MG/ML 100ML VIAL. IV ONE
[2020-02-28 19:35] VITALS: BP 156/97
--- NOTE | 2020-02-28 19:48 | PHYS DOC ---
Past Medical History Past Medical History: Diabetes-Type II, Heart Disease, Hypertension, Other Additional Past Medical Histor: prostate CA with chemotherapy treatments about 4 years Past Surgical History: Other Additional Past Surgical Histo: Prostate CA surgery Smoking Status: Former Smoker Alcohol Use: None Drug Use: None General Adult EDM: Chief Complaint: URINE CATHETER PROBLEM HPI: HPI: Patient is a 84 year old male who presents to the emergency department with complaints of needing to have suprapubic catheter placed. Patient states that approximately 11:00 this morning his home health nurse tried to replace his catheter and had a difficult time pulling it out, and then could not reinsert the new catheter. Patient states that there is some blood and pain in the area at the time and she was trying to place a catheter, but has no pain there now. Patient denies fever or chills, denies exposure to the COVID-19 virus, denies concerns for having the COVID-19 virus patient denies fever chills, visual changes, nasal congestion, cough, shortness of breath, chest pain or swelling to his extremities. Patient denies any abdominal pain, nausea, vomiting, diarrhea, constipation. Patient denies any back pains, pains in his joints, skin rashes, headaches, focal weaknesses, or sensory changes. Any swelling of his glands, any recent life changes, depression, anxieties, homicidal or suicidal ideations. Review of Systems: Review of Systems: Constitutional: Denies fever or chills. Denies COVID-19 virus concerns. Eyes: Denies change in visual acuity. HENT: Denies nasal congestion or sore throat. Respiratory: Denies cough or shortness of breath. Cardiovascular: Denies chest pain or edema. GI: Denies abdominal pain, nausea, vomiting, bloody stools or diarrhea. : Complains of needing his suprapubic catheter replaced. Musculoskeletal: Denies back pain or joint pain. Integument: Denies rash. Neurologic: Denies headache, focal weakness or sensory changes. Lymphatic: Denies swollen glands. Psychiatric: Denies depression or anxiety. Heart Score: Risk Factors: Risk Factors: DM, Current or recent (<one month) smoker, HTN, HLP, family history of CAD, obesity. Risk Scores: Score 0 - 3: 2.5% MACE over next 6 weeks - Discharge Home Score 4 - 6: 20.3% MACE over next 6 weeks - Admit for Clinical Observation Score 7 - 10: 72.7% MACE over next 6 weeks - Early Invasive Strategies Allergies: Allergies: Allergies Coded Allergies Type Severity Reaction Last Updated Verified No Known Drug Allergies 03/28/19 No Physical Exam: PE: Constitutional: Well developed, well nourished, no acute distress, non-toxic appearance. HENT: Normocephalic, atraumatic, bilateral external ears normal, oropharynx moist, no oral exudates, nose normal. Eyes: PERRLA, EOMI, conjunctiva normal, no discharge. Neck: Normal range of motion, no tenderness, supple, no stridor. Cardiovascular:Heart rate regular rhythm, no murmur heart sounds S1-S2, no abnormalities were auscultation Lungs & Thorax: Bilateral breath sounds clear to auscultation all lung dee. Abdomen: Bowel sounds normal 4 quadrants, soft, no tenderness, no masses, no pulsatile masses. Patient has suprapubic catheter stoma, without redness or erythema or drainage noted. Skin: Warm, dry, no erythema, no rash. Back: No tenderness, no CVA tenderness. Extremities: No tenderness, no cyanosis, no clubbing, ROM intact, no edema. Neurologic: Alert and oriented X 3, normal motor function, normal sensory function, no focal deficits noted. Psychologic: Affect normal, judgement normal, mood normal. Current Patient Data: Labs: Laboratory Tests Test 02/28/20 14:20 Glucose (Fingerstick) 142 mg/dL (70-99) H Vital Signs: Vital Signs Date Time Temp Pulse Resp B/P (MAP) Pulse Ox O2 Delivery O2 Flow Rate FiO2 02/28/20 13:35 98.2 87 18 140/99 (113) 97 Room Air 98.2 EKG: EKG: [] Radiology/Procedures: Radiology/Procedures: [] Course & Med Decision Making: Course & Med Decision Making Pertinent Labs and Imaging studies reviewed. (See chart for details) 84-year-old patient presents emergency department complaining needed his suprapubic catheter placed home health nurse was unable to replace it after removing his old one. Spoke to home health nurse Julita FERRER at [phone], as whom stated that she comes out approximately every 30 days for catheter change. Stating today that he has not been available for catheter change for approximately 6 weeks prior to the previous change. Julita stated that she was unable to insert the new catheter, stating that they usually use a 16 Burkinan indwelling Farr, so she sent the patient here to have the catheter replaced. Patient states that he needed the suprapubic catheter because he had prostate surgery 4 years ago and was unable to tolerate urinating or having catheters through his penis. Patient states he has not urinated through his penis in approximately 4 years. Attempted to replace catheter was unsuccessful using an 8 Burkinan, 12 Burkinan, 16 Burkinan. Spoke with urology who was unable to accept admission stating that they were too busy or holding too many patients in the emergency department. Spoke with [facility] urology who was unable to accept transfer stating that we should try calling by and 5 to 6 hours to see if they could take up at that time. Spoke with urology specialist at [facility] who is happy to accept patient in transfer, but patient stated that he would rather stay in the [facility]. ED attending Dr. Vasquez attempted to replace Farr was unsuccessful. Spoke with urology specialist Dr. Valerio at [facility] whom stated that he was aware of this patient as this patient was 1 of his partners patient prior to his senior living. Dr. Valerio recommended placing catheter through patient's penis, using a leg bag, given him his office phone number and he would arrange for an appointment to see him in his office tomorrow to examine and consider no longer using the suprapubic catheter. Discussed this with the patient who is agreeable to this plan, ED nursing staff placed a 16 Burkinan indwelling Farr through patient's penis with 800 cc of clear urine return, patient tolerated well. Patient discharged to home without prescriptions, patient had no further questions or concerns. Rajwinderon Disclaimer: Phoebe Disclaimer: This electronic medical record was generated, in whole or in part, using a voice recognition dictation system. Departure Departure Impression: Primary Impression: Farr catheter problem Qualified Codes: T83.9XXA - Unspecified complication of genitourinary prosthetic device, implant and graft, initial encounter Additional Impression: Suprapubic catheter Disposition: HOME, SELF-CARE Condition: GOOD Referrals: BRENDA ABRAMS MD (PCP) Additional Instructions: Please follow-up with . Call his office at [phone] tomorrow morning to set up an appointment to see him soon. Return to the emergency department for worsening symptoms, or further concerns. Justicifation of Admission Dx: Justifications for Admission: Justification of Admission Dx: N/A MARILEE MARROQUIN APRN Feb 28, 2020 19:48
== END 2020-02-28 19:50 | disposition home or self-care (01) ==
LOC: ER 11:51
DX: T83.098A Other mechanical complication of other urinary catheter, initial encounter (principal); E11.9 Type 2 diabetes mellitus without complications; I11.9 Hypertensive heart disease without heart failure; Z90.89 Acquired absence of other organs; Z98.890 Other specified postprocedural states; Z87.891 Personal history of nicotine dependence; Z85.46 Personal history of malignant neoplasm of prostate
CPT/HCPCS: 51702; 82962; 99285

== ENCOUNTER 2020-03-02 09:48 | Outpatient (CLI) | payer BC ==
[~2020-03-02] VITALS: Ht 170.2 cm; Wt 113.4 kg
[2020-03-02] MEDS ORDERED: GLIP5TAB10 PO (10:15)
[2020-03-02] MEDS ORDERED: ASPI-630 PO (10:16)
[2020-03-02 10:36] VITALS: BP 136/53
[2020-03-02 11:18] LABS: BASO % 1 % (0-3); EOS # 0.2 x10^3/uL (0.0-0.7); EOS % 2 % (0-3); HEMOGLOBIN 12.5 g/dL (13.0-17.5); LYMPH # 1.6 x10^3/uL (1.0-4.8); LYMPH % 21 % (24-48); MEAN CORPUSCULAR HEMOGLOBIN 30 pg (25-35); MEAN CORPUSCULAR HGB CONC 34 g/dL (31-37); MEAN CORPUSCULAR VOLUME 87 fL (79-100); MONO # 0.8 x10^3/uL (0.0-1.1); MONO % 10 % (0-9); NEUT # 5.1 x10^3/uL (1.8-7.7); NEUT % 66 % (31-73); PLATELET COUNT 171 x10^3/uL (140-400); RED BLOOD COUNT 4.23 x10^6/uL (4.30-5.70); RED CELL DISTRIBUTION WIDTH 13.7 % (11.5-14.5); WHITE BLOOD COUNT 7.7 x10^3/uL (4.0-11.0)
[2020-03-02] MEDS ORDERED: IOHEXOL 240 MG/ML 50ML VIAL. ONE (11:28)
[2020-03-02 11:30] LABS: PROTHROMBIN TIME PATIENT 13.6 SEC (11.7-14.0)
[2020-03-02] MEDS ORDERED: LIDOCAINE WITH 8.4% SOD BICARB 3 ML DISP.SYRIN. ONE (11:40)
[2020-03-02] MEDS ORDERED: fentaNYL PF VIAL 100 MCG/2 ML VIAL ONE (11:57)
[2020-03-02] MEDS ORDERED: CONTRAST GIVEN. MC PRN (12:15)
[2020-03-02] MEDS ORDERED: IOHEXOL 240 MG/ML 50ML VIAL. IJ ONE (12:30)
[2020-03-02] MEDS ORDERED: LIDOCAINE WITH 8.4% SOD BICARB 3 ML DISP.SYRIN. IJ ONE (12:30)
[2020-03-02] MEDS ORDERED: fentaNYL PF VIAL 100 MCG/2 ML VIAL IV ONE (12:30)
[2020-03-02 12:43] VITALS: BP 154/76
[2020-03-02 13:01] VITALS: BP 158/81
[2020-03-02 13:16] VITALS: BP 158/66
[2020-03-02 13:31] VITALS: BP 148/71
[2020-03-02 13:47] VITALS: BP 163/67
--- NOTE | 2020-03-02 14:16 | NUR ---
Discharge Note: DREW ALBARADO Discharge instructions and discharge home medications reviewed with Patient and a copy given. All questions have been answered and understanding verbalized. The following instructions and handouts were given: home care post suprapubic catheter replacement Discontinued lines and drains: Peripheral IV intact. Patient discharged to Home or Self Care withFamily Membera Wheelchair
--- NOTE | 2020-03-02 15:11 | RAD ---
Placement of suprapubic catheter through pre-existing tract 03/01/2020 Clinical Indication: SUPRA PUBIC CATHETER FELL OUT, inability to replace catheter the bedside. History of prostate cancer and radiation therapy. Discussion: The procedure was explained in its entirety to the patient or the patients designated employee relations representative by a member of the treatment team, including a discussion of the risks, benefits and commonly accepted alternatives to the procedure, as well as the expected consequences of no therapy whatsoever. Discussion of the risks included, but was not limited to, those that are most frequent and those that are rare but possibly severe or life-threatening, as well as the possibility of unforeseen complications. All elements of maximal sterile barrier technique including the use of a cap, mask, sterile gown, sterile gloves, large sterile sheet, appropriate hand hygiene, and 2% chlorhexidine for cutaneous antisepsis (or acceptable alternative antiseptic per current guidelines) were followed for this procedure. Under fluoroscopic guidance a guidewire and Kumpe catheter was advanced through. Pubic, pre-existing tract into the bladder. This is confirmed by ultrasound and administration of contrast in the bladder. The tract was anesthetized. Initially catheter would not advance through this tract. Dilatation was performed with an 8 mm high-pressure balloon. Subsequently a 16 [place] suprapubic catheter was advanced over the wire into the bladder. Positioned was confirmed with administration of contrast. The catheter was found aspirate/normally. The catheter was secured in place. Sterile dressings were applied. Total fluoroscopy time: 2.9 min Dose area product: 75 Gycm2 The procedures performed under local anesthesia. Impression: Placement of a suprapubic catheter as described, with ultrasound and fluoroscopic guidance
== END 2020-03-02 14:15 | disposition home or self-care (01) ==
LOC: INTRAD 09:48
PROVIDERS: ATTEND Urology
DX: T83.028A Displacement of other urinary catheter, initial encounter (principal); I25.10 Atherosclerotic heart disease of native coronary artery without angina pectoris; E78.5 Hyperlipidemia, unspecified; E11.9 Type 2 diabetes mellitus without complications; I10 Essential (primary) hypertension; W19.XXXA Unspecified fall, initial encounter; Y93.89 Activity, other specified; Y92.89 Other specified places as the place of occurrence of the external cause; Y99.8 Other external cause status; Z98.890 Other specified postprocedural states; Z79.899 Other long term (current) drug therapy; Z88.8 Allergy status to other drugs, medicaments and biological substances; Z87.891 Personal history of nicotine dependence; Z79.82 Long term (current) use of aspirin; Z79.01 Long term (current) use of anticoagulants
CPT/HCPCS: 36415; 51710; 85025; 85610; 85730; A4215; C1769; J0690; J3010; J3490; Q9966; 51102

== ENCOUNTER 2020-04-24 20:53 | Emergency (ER) | payer BC ==
[~2020-04-24] VITALS: Ht 170.2 cm; Wt 113.6 kg
[~2020-04-24 20:53] MED LIST changes: +ASPI-630 PO
[2020-04-25] MEDS ORDERED: IV NORMAL SALINE 1000ML BAG 2,000 ML IV ONE (00:15)
[2020-04-25] MEDS ORDERED: cefTRIAXone IV Push 1 GM VIAL. IVP ONE (00:15)
[2020-04-25 00:20] LABS: BASO # 0.1 x10^3/uL (0.0-0.2); BASO % 1 % (0-3); EOS % 0 % (0-3); HEMATOCRIT 39.3 % (39.0-53.0); HEMOGLOBIN 13.4 g/dL (13.0-17.5); LYMPH # 1.4 x10^3/uL (1.0-4.8); LYMPH % 14 % (24-48); MEAN CORPUSCULAR HEMOGLOBIN 30 pg (25-35); MEAN CORPUSCULAR HGB CONC 34 g/dL (31-37); MEAN CORPUSCULAR VOLUME 88 fL (79-100); MONO # 0.8 x10^3/uL (0.0-1.1); MONO % 8 % (0-9); NEUT # 7.6 x10^3/uL (1.8-7.7); NEUT % 76 % (31-73); PLATELET COUNT 166 x10^3/uL (140-400); RED BLOOD COUNT 4.45 x10^6/uL (4.30-5.70); RED CELL DISTRIBUTION WIDTH 13.7 % (11.5-14.5); WHITE BLOOD COUNT 9.9 x10^3/uL (4.0-11.0)
[2020-04-25 00:22] LABS: BILIRUBIN,URINE NEGATIVE (NEG); CLARITY,URINE TURBID; COLOR,URINE YELLOW; NITRITE,URINE NEGATIVE (NEG); PH,URINE 8.5 (<5.0-8.0); PROTEIN,URINE >=300 mg/dL (NEG-TRACE)
[2020-04-25 00:26] LABS: BACTERIA,URINE MANY /HPF (0-FEW); SQUAMOUS EPITHELIAL CELL,UR OCC /LPF; WBC,URINE TNTC /HPF (0-4)
--- NOTE | 2020-04-25 00:26 | RAD ---
INDICATION: Reason: uti, sepsis / Spl. Instructions: / History: COMPARISON: October 16, 2019 FINDINGS: Single view of chest obtained. Cardiac silhouette is again near upper limits of normal in size. Hypoexpanded examination of the lungs. Postoperative changes right proximal humerus partially seen. Calcific atherosclerosis. Mild linear opacities lung bases could be from atelectasis. IMPRESSION: * Linear opacities lung bases could be from atelectasis. Electronically signed by: Thai Sena MD (04/25/2020 12:23 AM) [id number]
[2020-04-25 00:27] LABS: AMORPHOUS SEDIMENT,UR PRESENT /HPF
--- NOTE | 2020-04-25 00:29 | PHYS DOC ---
Past Medical History Past Medical History: Diabetes-Type II, Heart Disease, Hypertension, Other Additional Past Medical Histor: prostate CA with chemotherapy treatments about 4 years Past Surgical History: Other Additional Past Surgical Histo: Prostate CA surgery Smoking Status: Former Smoker Alcohol Use: None Drug Use: None General Adult EDM: Chief Complaint: URINARY RETENTION HPI: HPI: 84-year-old male past medical history significant for obesity, diabetes, hypertension, hyperlipidemia, CAD with negative cath in 2019, prostate cancer with TURP with suprapubic catheter, presents to the ED with complaints of suprapubic abdominal fullness and pain stating his suprapubic catheter is not draining. Cannot recall when it was last changed, believes nurse changes it every 3-4 days and is due for a change on Thursday. 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 Last emptied his urine drainage bag at 4 PM. Review of Systems: Review of Systems: Constitutional: Denies fever or chills. []flu-like sxs Eyes: Denies change in visual acuity. [] HENT: Denies nasal congestion or sore throat. [] Respiratory: Denies cough or shortness of breath. [] Cardiovascular: Denies chest pain or edema, syncope GI: Denies abdominal pain, nausea, vomiting, or diarrhea. [] : Denies hematuria, dysuria Musculoskeletal: Denies back pain or joint pain. [] Integument: Denies rash. [] Neurologic: Denies headache, focal weakness or sensory changes. [] neck stiffness Endocrine: Denies polyuria or polydipsia. [] Lymphatic: Denies swollen glands. [] Psychiatric: Denies depression or anxiety. [] Heart Score: Risk Factors: Risk Factors: DM, Current or recent (<one month) smoker, HTN, HLP, family history of CAD, obesity. Risk Scores: Score 0 - 3: 2.5% MACE over next 6 weeks - Discharge Home Score 4 - 6: 20.3% MACE over next 6 weeks - Admit for Clinical Observation Score 7 - 10: 72.7% MACE over next 6 weeks - Early Invasive Strategies Current Medications: Current Medications Medications (Trade) Dose Ordered Sig/Althea Start Time Stop Time Status Last Admin Dose Admin Ceftriaxone Sodium (Rocephin) 1 gm 1X ONCE 04/25/20 00:15 04/25/20 00:17 DC Sodium Chloride 2,000 ml @ 4,000 mls/hr 1X ONCE 04/25/20 00:15 04/25/20 00:44 UNV Allergies: Allergies: Allergies Coded Allergies Type Severity Reaction Last Updated Verified No Known Drug Allergies 03/28/19 No Physical Exam: PE: Constitutional: Well developed, well nourished, no acute distress, uncomfortable/in pain on arrival HENT: Normocephalic, atraumatic, Eyes: EOMI, conjunctiva normal, Neck: Normal range of motion, no tenderness, supple, no stridor. [] Cardiovascular:tachycardic on arrival 109 , no murmur [] Lungs & Thorax: Bilateral breath sounds clear to auscultation [] Abdomen: Bowel sounds normal, soft, +suprapubic ttp, Skin: Warm, dry, no erythema, no rash. [] Back: No tenderness, no CVA tenderness. [] Extremities: No tenderness, no cyanosis, no clubbing, ROM intact, no edema. [] Neurologic: Alert and oriented X 3, normal motor function, normal sensory function, no focal deficits noted. [] Psychologic: Affect normal, judgement normal, mood normal. [] : petros pus in catheter tubing and drainage bag Current Patient Data: Labs: Laboratory Tests Test 04/25/20 00:11 White Blood Count 9.9 x10^3/uL (4.0-11.0) Red Blood Count 4.45 x10^6/uL (4.30-5.70) Hemoglobin 13.4 g/dL (13.0-17.5) Hematocrit 39.3 % (39.0-53.0) Mean Corpuscular Volume 88 fL (79-100) Mean Corpuscular Hemoglobin 30 pg (25-35) Mean Corpuscular Hemoglobin Concent 34 g/dL (31-37) Red Cell Distribution Width 13.7 % (11.5-14.5) Platelet Count 166 x10^3/uL (140-400) Neutrophils (%) (Auto) 76 % (31-73) H Lymphocytes (%) (Auto) 14 % (24-48) L Monocytes (%) (Auto) 8 % (0-9) Eosinophils (%) (Auto) 0 % (0-3) Basophils (%) (Auto) 1 % (0-3) Neutrophils # (Auto) 7.6 x10^3/uL (1.8-7.7) Lymphocytes # (Auto) 1.4 x10^3/uL (1.0-4.8) Monocytes # (Auto) 0.8 x10^3/uL (0.0-1.1) Eosinophils # (Auto) 0.0 x10^3/uL (0.0-0.7) Basophils # (Auto) 0.1 x10^3/uL (0.0-0.2) Laboratory Tests 04/25/20 00:11 Vital Signs: Vital Signs Date Time Temp Pulse Resp B/P (MAP) Pulse Ox O2 Delivery O2 Flow Rate FiO2 04/24/20 22:26 97.7 108 20 139/62 (87) 95 Room Air 97.7 EKG: EKG: Tachycardia at 106 bpm, left axis deviation, right bundle branch block, QRS 134, QTc 456, old T wave inversions V1 through V3 and lead III, no ST elevations or ST depressions, compared with October 16, 2019 EKG Radiology/Procedures: Radiology/Procedures: IMAGING REPORT Signed PATIENT: DREW ALBARADO LACCOUNT: [id number] : 1935 LOCATION: ER AGE: 84 SEX: M EXAM STATUS: REG ER ORD. PHYSICIAN: YURIY KENDRICK DO REASON: uti, sepsis PROCEDURE: PORTABLE CHEST 1V INDICATION: Reason: uti, sepsis / Spl. Instructions: / History: COMPARISON: October 16, 2019 FINDINGS: Single view of chest obtained. Cardiac silhouette is again near upper limits of normal in size. Hypoexpanded examination of the lungs. Postoperative changes right proximal humerus partially seen. Calcific atherosclerosis. Mild linear opacities lung bases could be from atelectasis. IMPRESSION: * Linear opacities lung bases could be from atelectasis. Electronically signed by: Alyce Abbasi MD (04/25/2020 12:23 AM) [id number] DICTATED and SIGNED BY: ALYCE ABBASI MD DATE: 04/25/20 0023 Course & Med Decision Making: Course & Med Decision Making Pertinent Labs and Imaging studies reviewed. (See chart for details) Concern for suprapubic catheter, clogged with purulent urine, no hematuria, >800s urine drained. Pt afebrile with no leukocytosis. Significant relief after patient's catheter was exchanged-now resting comfortably. With no confusion, has decision-making capacity and drove himself to the hospital. Has no back pain, flulike symptoms, nausea or vomiting, low suspicion for pyelonephritis. Cultures ordered due to tachycardia on arrival. Will discharge home with antibiotics for complicated UTI with strict ED return precautions given for fever, flulike symptoms, n/v or symptoms of pyelonephritis. Encouraged urgent outpatient follow-up with PMD and urology. Life-threatening processes were considered but are low suspicion at this time, given history and physical exam. Pt was educated on all prescription medications and adverse effects. All patient's questions were answered and pt was stable at time of discharge. Differential includes aortic dissection, aortic aneurysm, acute coronary syndrome, surgical abdomen (appendicitis, cholecystitis, ischemic bowel, strangulated hernia, etc), bowel obstruction or volvulus, bladder outlet obstruction, gastrointestinal bleeding, inflammatory bowel disease, peptic ulcer disease, sepsis, diverticular disease, ureterolithiasis, nephrolithiasis, ovarian or testicular torsion, ectopic , vaginal hemorrhage of infection I spoken with the patient and her caregivers. I explained the patient's condition, diagnoses and treatment plan based on the information available to me at this time. I have answered the patient and her caregiver's questions and addressed any concerns. The patient and her caregivers have a good understanding of patient's diagnosis, condition and treatment plan as can be expected at this point. Vital signs have been stable. Patient's condition is stable and appropriate for discharge from the emergency department. Patient will pursue further outpatient evaluation with primary care physician or other designated or consulting physician as outlined in the discharge instructions. The patient and/or caregivers are agreeable to this plan of care and follow-up instructions have been explained in detail. The patient and/or caregivers have received these instructions in written form and have expressed an understanding of the discharge instructions. The patient and/or caregivers are aware that any significant change of condition or worsening of symptoms should prompt immediate return to this or the closest emergency department or call to 911. Phoebe Disclaimer: Phoebe Disclaimer: This electronic medical record was generated, in whole or in part, using a voice recognition dictation system. Departure Departure Impression: Primary Impression: Complicated UTI (urinary tract infection) Additional Impressions: Suprapubic catheter Urinary catheter dysfunction Disposition: 01 HOME, SELF-CARE Condition: STABLE Referrals: BRENDA ABRAMS MD (PCP) Patient Instructions: Catheter-Associated Urinary Tract Infection FAQs - SIEGEL, Dysuria Additional Instructions: Dr. [facility] [phone] OR [facility] u[facility] [phone] EMERGENCY DEPARTMENT GENERAL DISCHARGE INSTRUCTIONS Thank you for coming to [facility] Emergency Department (ED) today and trusting us with you care. We trust that you had a positive experience in our Emergency Department. If you wish to speak to the department management, you may call the Director at [phone]. YOUR FOLLOW UP INSTRUCTIONS ARE FOLLOWS: 1. Do you have a private Doctor? If you do not have a private doctor, please ask for a resource list of physicians or clinics that may be able to assist you with follow up care. 2. The Emergency Physicain has interpreted your x-rays. The X-Ray specialist will also review them. If there is a change in the findings, you will be notified in 48 hours when at all possible. 3. A lab test or culture has been done, your results will be reviewed and you will be notified if you need a change in treatment. ADDITIONAL INSTRUCTIONS AND INFORMATION: 1. Your care today has been supervised by a physician who is specially trained in emergency care. Many problems require more than one evaluation for a complete diagnosis and treatment. We recommend that you schedule your follow up appointment as recommended to ensure complete treatment of you illness or injury. If you are unable to obtain follow up care and continue to have a problem, or if your condition worsens, we recommend that you return to the ED. 2. We are not able to safely determine your condition over the phone nor are we able to give sound medical advice over the phone. For these safety reasons, if you call for medical advice we will ask you to come to the ED for further evaluation. 3. If you have any questions regarding these discharge instructions please call the ED at [phone]. SAFETY INFORMATION: In the interest of safety, wellness, and injury prevention; we encourage you to wear your sealbelt, if you smoke; quite smoking, and we encourage family to use a protective helmet for bicycling and other sporting events that present an increased risk for head injury. IF YOUR SYMPTOMS WORSEN OR NEW SYMPTOMS DEVELOP, OR YOU HAVE CONCERNS ABOUT YOUR CONDITION; OR IF YOUR CONDITION WORSENS WHILE YOU ARE WAITING FOR YOUR FOLLOW UP APPOINTMENT; EITHER CONTACT YOUR PRIMARY CARE DOCTOR, THE PHYSICIAN WHOSE NAME AND NUMBER YOU WERE GIVEN, OR RETURN TO THE ED IMMEDIATELY. Scripts Cefpodoxime Proxetil (CEFPODOXIME PROXETIL) 200 Mg Tablet 1 TAB PO BID for 14 Days, #28 TAB Prov: YURIY KENDRICK DO 04/25/20 Justicifation of Admission Dx: Justifications for Admission: Justification of Admission Dx: Yes YURIY KENDRICK DO Apr 25, 2020 00:29
[2020-04-25 00:31] LABS: CALCIUM 9.1 mg/dL (8.5-10.1); CREATININE 1.2 mg/dL (0.7-1.3); GFR 57.4; POTASSIUM 3.8 mmol/L (3.5-5.1)
[2020-04-25 00:36] LABS: ALBUMIN 3.6 g/dL (3.4-5.0); TOTAL BILIRUBIN 0.3 mg/dL (0.2-1.0); TOTAL PROTEIN 7.3 g/dL (6.4-8.2)
[2020-04-25] MEDS ORDERED: CEFP200T PO (01:38)
[2020-04-25 01:57] VITALS: BP 176/65
--- NOTE | 2020-04-25 08:07 | EKG ---
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
== END 2020-04-25 01:53 | disposition home or self-care (01) ==
LOC: ER 20:53
DX: T83.518A Infection and inflammatory reaction due to other urinary catheter, initial encounter (principal); N39.0 Urinary tract infection, site not specified; R10.30 Lower abdominal pain, unspecified; E11.9 Type 2 diabetes mellitus without complications; I11.9 Hypertensive heart disease without heart failure; E66.9 Obesity, unspecified; Z85.46 Personal history of malignant neoplasm of prostate; Z87.891 Personal history of nicotine dependence; Z98.890 Other specified postprocedural states; Z68.39 Body mass index [BMI] 39.0-39.9, adult
CPT/HCPCS: 36415; 71045; 80053; 81001; 83605; 85025; 87040; 87086; 93005; 96361; 96374; 99285; J0696; J7030

== ENCOUNTER 2020-07-16 20:23 | Emergency (ER) | payer BC ==
[~2020-07-16] VITALS: Ht 170.2 cm; Wt 95.0 kg
[~2020-07-16 20:23] MED LIST changes: +AMLO-186 PO; -AMLO5TAB10 PO; +CEFP200T PO
[2020-07-16 21:21] VITALS: BP 184/89
--- NOTE | 2020-07-16 22:04 | PHYS DOC ---
Past Medical History Past Medical History: Diabetes-Type II, Heart Disease, Hypertension, Other Additional Past Medical Histor: prostate CA with chemotherapy treatments about 4 years Past Surgical History: Other Additional Past Surgical Histo: Prostate CA surgery Smoking Status: Former Smoker Alcohol Use: None Drug Use: None General Adult EDM: Chief Complaint: URINE CATHETER PROBLEM HPI: HPI: Patient is a 84 year old male presents emergency department reporting that while he was pulling his pants up, he dislodged his suprapubic catheter and has been unable to urinate since. Patient states this happened approximately 4 hours prior to arrival. Patient states that he feels like his bladder is full as he is starting to have some abdomen discomfort. Patient states he has not noticed any urine come out from his catheter since this happened, patient states that he thinks he needs his catheter irrigated or changed. Patient denies any other physical complaints or physical concerns. Patient states he has had this catheter for many years. Review of Systems: Review of Systems: 14 body systems of review of systems have been reviewed. See HPI for pertinent positives and negative responses, otherwise all other systems are negative, nonpertinent or noncontributory. Heart Score: Risk Factors: Risk Factors: DM, Current or recent (<one month) smoker, HTN, HLP, family history of CAD, obesity. Risk Scores: Score 0 - 3: 2.5% MACE over next 6 weeks - Discharge Home Score 4 - 6: 20.3% MACE over next 6 weeks - Admit for Clinical Observation Score 7 - 10: 72.7% MACE over next 6 weeks - Early Invasive Strategies Allergies: Allergies: Allergies Coded Allergies Type Severity Reaction Last Updated Verified No Known Drug Allergies 03/28/19 No Physical Exam: PE: Constitutional: Well developed, well nourished, no acute distress, non-toxic appearance. [] HENT: Normocephalic, atraumatic, bilateral external ears normal, oropharynx moist, no oral exudates, nose normal. [] Eyes: PERRLA, EOMI, conjunctiva normal, no discharge. [] Neck: Normal range of motion, no tenderness, supple, no stridor. [] Cardiovascular:Heart rate regular rhythm, no murmur [] Lungs & Thorax: Bilateral breath sounds clear to auscultation [] Abdomen: Bowel sounds normal, soft, no tenderness, no masses, no pulsatile masses. Patient has suprapubic catheter, patient abdomen round related to obesity. No blood noticed from the suprapubic stoma. No urine coming from the suprapubic catheter. Decision to change catheter. Skin: Warm, dry, no erythema, no rash. [] Back: No tenderness, no CVA tenderness. [] Extremities: No tenderness, no cyanosis, no clubbing, ROM intact, no edema. [] Neurologic: Alert and oriented X 3, normal motor function, normal sensory function, no focal deficits noted. [] Psychologic: Affect normal, judgement normal, mood normal. [] Current Patient Data: Vital Signs: Vital Signs Date Time Temp Pulse Resp B/P (MAP) Pulse Ox O2 Delivery O2 Flow Rate FiO2 07/16/20 21:21 97.9 102 16 184/89 (120) 98 Room Air 97.9 EKG: EKG: [] Radiology/Procedures: Radiology/Procedures: [] Course & Med Decision Making: Course & Med Decision Making Pertinent Labs and Imaging studies reviewed. (See chart for details) 84-year-old male patient presented to the emergency department complaining that he dislodged his suprapubic catheter while pulling his pants up by accident. Emmanuel presley has had had a suprapubic catheter for many years. Examination revealed suprapubic catheter with no obvious trauma or redness or blood coming from the stoma. There was no urine coming from the suprapubic catheter. The decision to change to new catheter was made. Procedure note: Patient 16 Australian coud indwelling catheter with 10 cc balloon was in place and hooked to leg drainage bags system. 10 cc of clear liquid was drained from urinary catheter retaining balloon. 16 Australian coud indwelling catheter was removed without difficulty, copious amounts of urine started draining from suprapubic stoma. A 16 Australian indwelling Farr urinary catheter retaining balloon was first checked for integrity with 10 cc of normal saline, the 16 Australian indwelling Farr was placed sterilely through the suprapubic stoma without difficulty. The 16 Australian indwelling Farr retaining balloon was f illed with 10 cc normal saline, 500 cc of clear yellow urine was collected into a Farr bag. A urinary leg bag was ordered when urine drainage was complete. Patient states total abdominal discomfort relief after urine was drained into Farr bag. Patient had no further complaints. ED nursing staff replaced Farr bag with urinary leg bag. Discussed with patient to keep his appointment on 07/19/2020 with his urologist and to tell him that his suprapubic catheter was replaced changing from a coud catheter to a regular plane indwelling Farr catheter. Patient gave verbal understanding of discharge home instructions, follow-up with urology on 07/19/2020, return to ER precautions and concerns, patient discharged home without incident. Diagnoses suprapubic indwelling Farr clogged, integrity discrepancy. Dragon Disclaimer: Dragon Disclaimer: This electronic medical record was generated, in whole or in part, using a voice recognition dictation system. Departure Departure Impression: Primary Impression: Suprapubic catheter Additional Impression: Farr catheter problem Qualified Codes: T83.9XXA - Unspecified complication of genitourinary prosthetic device, implant and graft, initial encounter Disposition: 01 DC HOME SELF CARE/HOMELESS Condition: IMPROVED Referrals: BRENDA ABRAMS MD (PCP) Patient Instructions: Indwelling Urinary Catheter Care-Brief Additional Instructions: Your suprapubic catheter was replaced, somehow you dislodged your catheter and caused a clot inside of the tube that could not be irrigated away. We have replaced your suprapubic catheter with a like size, 16 Australian with 10 cc balloon. You indicated that your pain decreased considerably after your catheter replacement. Please keep your appointment with your urinary catheter Dr. On 07/19/2020, return to the emergency department for worsening symptoms or other concerns. EMERGENCY DEPARTMENT GENERAL DISCHARGE INSTRUCTIONS Thank you for coming to [facility] Emergency Department (ED) today and trusting us with you care. We trust that you had a positive experience in our Emergency Department. If you wish to speak to the department management, you may call the Director at [phone]. YOUR FOLLOW UP INSTRUCTIONS ARE FOLLOWS: 1. Do you have a private Doctor? If you do not have a private doctor, please ask for a resource list of physicians or clinics that may be able to assist you with follow up care. 2. The Emergency Physicain has interpreted your x-rays. The X-Ray specialist will also review them. If there is a change in the findings, you will be notified in 48 hours when at all possible. 3. A lab test or culture has been done, your results will be reviewed and you will be notified if you need a change in treatment. ADDITIONAL INSTRUCTIONS AND INFORMATION: 1. Your care today has been supervised by a physician who is specially trained in emergency care. Many problems require more than one evaluation for a complete diagnosis and treatment. We recommend that you schedule your follow up appointment as recommended to ensure complete treatment of you illness or injury. If you are unable to obtain follow up care and continue to have a problem, or if your condition worsens, we recommend that you return to the ED. 2. We are not able to safely determine your condition over the phone nor are we able to give sound medical advice over the phone. For these safety reasons, if you call for medical advice we will ask you to come to the ED for further evaluation. 3. If you have any questions regarding these discharge instructions please call the ED at [phone]. SAFETY INFORMATION: In the interest of safety, wellness, and injury prevention; we encourage you to wear your sealbelt, if you smoke; quite smoking, and we encourage family to use a protec tive helmet for bicycling and other sporting events that present an increased risk for head injury. IF YOUR SYMPTOMS WORSEN OR NEW SYMPTOMS DEVELOP, OR YOU HAVE CONCERNS ABOUT YOUR CONDITION; OR IF YOUR CONDITION WORSENS WHILE YOU ARE WAITING FOR YOUR FOLLOW UP APPOINTMENT; EITHER CONTACT YOUR PRIMARY CARE DOCTOR, THE PHYSICIAN WHOSE NAME AND NUMBER YOU WERE GIVEN, OR RETURN TO THE ED IMMEDIATELY. MARILEE MARROQUIN APRN Jul 16, 2020 22:04
== END 2020-07-16 23:01 | disposition home or self-care (01) ==
LOC: ER 20:23
DX: T85.528A Displacement of other gastrointestinal prosthetic devices, implants and grafts, initial encounter (principal); E11.9 Type 2 diabetes mellitus without complications; I11.9 Hypertensive heart disease without heart failure; Z87.891 Personal history of nicotine dependence; Y82.8 Other medical devices associated with adverse incidents; Y92.89 Other specified places as the place of occurrence of the external cause
CPT/HCPCS: 51702; 99284

== ENCOUNTER 2020-11-12 20:03 | Emergency (ER) | payer BC ==
[~2020-11-12] VITALS: Ht 170.2 cm; Wt 109.0 kg
[~2020-11-12 20:03] MED LIST changes: -CIPR500T PO; +CIPR500T2 PO
[2020-11-12 20:12] VITALS: BP 190/139
--- NOTE | 2020-11-12 21:12 | PHYS DOC ---
Past Medical History Past Medical History: Diabetes-Type II, Heart Disease, Hypertension, Other Additional Past Medical Histor: prostate CA with chemotherapy treatments about 4 years Past Surgical History: Other Additional Past Surgical Histo: Prostate CA surgery Smoking Status: Former Smoker Alcohol Use: None Drug Use: None General Adult EDM: Chief Complaint: URINARY RETENTION HPI: HPI: Patient is a 85 year old male history of [place] retention and suprapubic catheter presents to the ED for urinary retention x1 day. Patient states that today is not as he has not been draining into his suprapubic catheter and has noted some lower abdominal pain that he reports is similar to past experiences of urinary tension and required a changing of his suprapubic catheter. Patient denies fever, skin changes around the catheter, nausea, vomiting, diarrhea, changes in bowel habits. Review of Systems: Review of Systems: Constitutional: Denies fever or chills Eyes: Denies redness or eye pain HENT: Denies nasal congestion or sore throat Respiratory: Denies cough or shortness of breath Cardiovascular: Denies chest pain or palpitations GI: Denies nausea, or vomiting. Reports lower abdominal pain : Denies hematuria, reports urinary retention Musculoskeletal: Denies back pain or joint pain Integument: Denies rash or skin lesions Neurologic: Denies headache, focal weakness or sensory changes Complete systems were reviewed and found to be within normal limits, except as documented in this note. Heart Score: C/O Chest Pain: N/A Allergies: Allergies: Allergies Coded Allergies Type Severity Reaction Last Updated Verified No Known Drug Allergies 03/28/19 No Physical Exam: PE: Constitutional: Well developed, well nourished, no acute distress, non-toxic appearance HENT: Normocephalic, atraumatic Eyes: PERRL, EOMI, conjunctiva normal, no discharge Neck: Normal range of motion, no tenderness, supple Lungs & Thorax: No respiratory distress, equal chest rise and fall Abdomen: Soft, mild suprapubic tenderness. Obese abdomen Skin: Warm, dry, no erythema, no rash. No overlying skin changes around the suprapubic catheter site. Back: No tenderness, no CVA tenderness Extremities: No tenderness, ROM intact, no edema Neurologic: Alert and oriented X 3, normal motor function, normal sensory function, no focal deficits noted Psychologic: Affect normal, judgment normal Current Patient Data: Vital Signs: Vital Signs Date Time Temp Pulse Resp B/P (MAP) Pulse Ox O2 Delivery O2 Flow Rate FiO2 11/12/20 20:12 98.9 117 12 190/139 (156) 98 98.9 EKG: EKG: [] Radiology/Procedures: Radiology/Procedures: [] Course & Med Decision Making: Course & Med Decision Making Pertinent Labs and Imaging studies reviewed. (See chart for details) [] Dragon Disclaimer: Dragon Disclaimer: This electronic medical record was generated, in whole or in part, using a voice recognition dictation system. Departure Departure Impression: Primary Impression: Complicated UTI (urinary tract infection) Additional Impression: Farr catheter problem Qualified Codes: T83.9XXA - Unspecified complication of genitourinary prosthetic device, implant and graft, initial encounter Disposition: HOME / SELF CARE / HOMELESS Condition: STABLE Referrals: BRENDA ABRAMS MD (PCP) Patient Instructions: Catheter-Associated Urinary Tract Infection FAQs - SIEGEL Scripts Cephalexin (CEPHALEXIN) 500 Mg Tablet 1 TAB PO TID for 10 Days, #30 TAB Prov: MARILEE MASSEY DO 11/12/20 MARILEE MASSEY DO Nov 12, 2020 21:12
[2020-11-12 21:44] LABS: BILIRUBIN,URINE NEGATIVE (NEG); CLARITY,URINE TURBID; COLOR,URINE YELLOW; NITRITE,URINE POSITIVE (NEG); PH,URINE 8.5 (<5.0-8.0); PROTEIN,URINE >=300 mg/dL (NEG-TRACE); UROBILINOGEN,URINE 0.2 mg/dL (0.2 mg/dL)
[2020-11-12 21:50] LABS: BACTERIA,URINE MANY /HPF (0-FEW); WBC,URINE TNTC /HPF (0-4)
[2020-11-12] MEDS ORDERED: CEPH500T PO (22:07)
[2020-11-12] MEDS ORDERED: CEPHALEXIN 250 MG CAPSULE. PO ONE (22:30)
== END 2020-11-12 22:27 | disposition home or self-care (01) ==
LOC: ER 20:03
DX: N39.0 Urinary tract infection, site not specified (principal); T83.098A Other mechanical complication of other urinary catheter, initial encounter; R33.9 Retention of urine, unspecified; E11.9 Type 2 diabetes mellitus without complications; I11.9 Hypertensive heart disease without heart failure; Z87.891 Personal history of nicotine dependence; Z98.890 Other specified postprocedural states; Z85.46 Personal history of malignant neoplasm of prostate; Z85.89 Personal history of malignant neoplasm of other organs and systems
CPT/HCPCS: 51702; 81001; 87086; 99284

== ENCOUNTER 2021-01-10 13:00 | Emergency (ER) | payer BC ==
[~2021-01-10] VITALS: Ht 170.2 cm; Wt 95.4 kg
[2021-01-10 13:44] LABS: BILIRUBIN,URINE NEGATIVE (NEG); CLARITY,URINE TURBID; COLOR,URINE YELLOW; NITRITE,URINE NEGATIVE (NEG); PROTEIN,URINE >=300 mg/dL (NEG-TRACE); UROBILINOGEN,URINE 0.2 mg/dL (0.2 mg/dL)
[2021-01-10 13:51] LABS: BACTERIA,URINE MANY /HPF (0-FEW); WBC,URINE TNTC /HPF (0-4)
[2021-01-10] MEDS ORDERED: CEPH500C PO (13:58)
--- NOTE | 2021-01-10 13:58 | PHYS DOC ---
Past Medical History Past Medical History: Cancer, Diabetes-Type II, Heart Disease, Hypertension, Other Additional Past Medical Histor: prostate CA with chemotherapy treatments about 4 years Past Surgical History: Other Additional Past Surgical Histo: Prostate CA surgery Smoking Status: Never Smoker Alcohol Use: None Drug Use: None General Adult EDM: Chief Complaint: URINE CATHETER PROBLEM HPI: HPI: Patient is a 85 year old [f__sex] who presents with [] Review of Systems: Review of Systems: Constitutional: Denies fever or chills. [] Eyes: Denies change in visual acuity. [] HENT: Denies nasal congestion or sore throat. [] Respiratory: Denies cough or shortness of breath. [] Cardiovascular: Denies chest pain or edema. [] GI: Denies abdominal pain, nausea, vomiting, bloody stools or diarrhea. [] : Denies dysuria. [] Musculoskeletal: Denies back pain or joint pain. [] Integument: Denies rash. [] Neurologic: Denies headache, focal weakness or sensory changes. [] Endocrine: Denies polyuria or polydipsia. [] Lymphatic: Denies swollen glands. [] Psychiatric: Denies depression or anxiety. [] Heart Score: Risk Factors: Risk Factors: DM, Current or recent (<one month) smoker, HTN, HLP, family history of CAD, obesity. Risk Scores: Score 0 - 3: 2.5% MACE over next 6 weeks - Discharge Home Score 4 - 6: 20.3% MACE over next 6 weeks - Admit for Clinical Observation Score 7 - 10: 72.7% MACE over next 6 weeks - Early Invasive Strategies Current Medications: Current Medications Medications (Trade) Dose Ordered Sig/Althea Start Time Stop Time Status Last Admin Dose Admin Cephalexin HCl (Keflex) 500 mg 1X ONCE 01/10/21 14:00 01/10/21 14:01 UNV Allergies: Allergies: Allergies Coded Allergies Type Severity Reaction Last Updated Verified No Known Drug Allergies 03/28/19 No Physical Exam: PE: Constitutional: Well developed, well nourished, no acute distress, non-toxic appearance. [] HENT: Normocephalic, atraumatic, bilateral external ears normal, oropharynx mo ist, no oral exudates, nose normal. [] Eyes: PERRLA, EOMI, conjunctiva normal, no discharge. [] Neck: Normal range of motion, no tenderness, supple, no stridor. [] Cardiovascular:Heart rate regular rhythm, no murmur [] Lungs & Thorax: Bilateral breath sounds clear to auscultation [] Abdomen: Bowel sounds normal, soft, no tenderness, no masses, no pulsatile masses. [] Skin: Warm, dry, no erythema, no rash. [] Back: No tenderness, no CVA tenderness. [] Extremities: No tenderness, no cyanosis, no clubbing, ROM intact, no edema. [] Neurologic: Alert and oriented X 3, normal motor function, normal sensory function, no focal deficits noted. [] Psychologic: Affect normal, judgement normal, mood normal. [] Current Patient Data: Labs: Laboratory Tests Test 01/10/21 13:25 Urine Collection Type U cath Urine Color Yellow Urine Clarity Turbid Urine pH 8.0 (<5.0-8.0) Urine Specific [place] 1.025 (1.000-1.030) Urine Protein >=300 mg/dL (NEG-TRACE) Urine Glucose (UA) 250 mg/dL (NEG) Urine Ketones (Stick) Trace mg/dL (NEG) Urine Blood Small (NEG) Urine Nitrite Negative (NEG) Urine Bilirubin Negative (NEG) Urine Urobilinogen Dipstick 0.2 mg/dL (0.2 mg/dL) Urine Leukocyte Esterase Large (NEG) Urine RBC 11-20 /HPF (0-2) Urine WBC Tntc /HPF (0-4) Urine Bacteria Many /HPF (0-FEW) Vital Signs: Vital Signs Date Time Temp Pulse Resp B/P (MAP) Pulse Ox O2 Delivery O2 Flow Rate FiO2 01/10/21 13:37 98.5 112 18 182/95 (124) 95 Room Air 98.5 EKG: EKG: [] Radiology/Procedures: Radiology/Procedures: [] Course & Med Decision Making: Course & Med Decision Making Pertinent Labs and Imaging studies reviewed. (See chart for details) [] Dragon Disclaimer: Dragon Disclaimer: This electronic medical record was generated, in whole or in part, using a voice recognition dictation system. Departure Departure Impression: Primary Impression: UTI (urinary tract infection) Qualified Codes: T83.510A - Infection and inflammatory reaction due to cystostomy catheter, initial encounter; N39.0 - Urinary tract infection, site not specified Additional Impression: Farr catheter problem Qualified Codes: T83.9XXA - Unspecified complication of genitourinary prosthetic device, implant and graft, initial encounter Disposition: HOME / SELF CARE / HOMELESS Condition: STABLE Referrals: BRENDA ABRAMS MD (PCP) Patient Instructions: Catheter-Associated Urinary Tract Infection FAQs - SIEGEL, Farr Catheter Care, Adult Scripts Cephalexin (CEPHALEXIN) 500 Mg Capsule 1 CAP PO TID, #30 CAP Prov: MARILEE MASSEY DO 01/10/21 MARILEE MASSEY DO Jan 10, 2021 13:58
[2021-01-10] MEDS ORDERED: CEPHALEXIN 250 MG CAPSULE. PO ONE (14:30)
[2021-01-10 14:32] VITALS: BP 131/84
== END 2021-01-10 14:35 | disposition home or self-care (01) ==
LOC: ER 13:00
DX: T83.510A Infection and inflammatory reaction due to cystostomy catheter, initial encounter (principal); T83.9XXA Unspecified complication of genitourinary prosthetic device, implant and graft, initial encounter; N39.0 Urinary tract infection, site not specified; I11.9 Hypertensive heart disease without heart failure; I10 Essential (primary) hypertension; E11.9 Type 2 diabetes mellitus without complications; Y82.8 Other medical devices associated with adverse incidents; Y92.89 Other specified places as the place of occurrence of the external cause
CPT/HCPCS: 51702; 81001; 87077; 87086; 87186; 99283; 99284

== ENCOUNTER 2021-02-17 21:37 | Emergency (ER) | payer BC ==
[~2021-02-17] VITALS: Ht 172.7 cm; Wt 100.0 kg
[~2021-02-17 21:37] MED LIST changes: +CEPH500C PO
--- NOTE | 2021-02-17 23:24 | PHYS DOC ---
Past Medical History Past Medical History: Cancer, Diabetes-Type II, Heart Disease, Hypertension, Other Additional Past Medical Histor: prostate CA with chemotherapy treatments about 4 years Past Surgical History: Other Additional Past Surgical Histo: Prostate CA surgery Smoking Status: Never Smoker Alcohol Use: None Drug Use: None General Adult EDM: Chief Complaint: URINE CATHETER PROBLEM HPI: HPI: 85-year-old male hypertension, CAD, diabetes and prostate cancer with suprapubic catheter, presents the ED with complaints of decreased urine output and painful distention of pelvis, is worried his catheter is not draining. Reports increased urine output with urgency. Review of Systems: Review of Systems: Constitutional: Denies fever or chills. [] Eyes: Denies change in visual acuity. [] HENT: Denies nasal congestion or sore throat. [] Respiratory: Denies cough or shortness of breath. [] Cardiovascular: Denies chest pain or edema. [] GI: Denies nausea, vomiting, bloody stools or diarrhea. [] : Denies hematuria or flank pain Musculoskeletal: Denies back pain or joint pain. [] Integument: Denies rash or diaphoresis Neurologic: Denies headache, focal weakness or sensory changes. [] Endocrine: Ports polyuria, declines polydipsia Lymphatic: Denies swollen glands. [] Psychiatric: Denies depression or anxiety. [] Heart Score: C/O Chest Pain: No Risk Factors: Risk Factors: DM, Current or recent (<one month) smoker, HTN, HLP, family history of CAD, obesity. Risk Scores: Score 0 - 3: 2.5% MACE over next 6 weeks - Discharge Home Score 4 - 6: 20.3% MACE over next 6 weeks - Admit for Clinical Observation Score 7 - 10: 72.7% MACE over next 6 weeks - Early Invasive Strategies Current Medications: Current Medications Medications (Trade) Dose Ordered Sig/Althea Start Time Stop Time Status Last Admin Dose Admin Ceftriaxone Sodium (Rocephin) 1 gm 1X ONCE 02/17/21 23:30 02/17/21 23:31 Allergies: Allergies: Allergies Coded Allergies Type Severity Reaction Last Updated Verified No Known Drug Allergies 03/28/19 No Physical Exam: PE: Constitutional: Unkept/disheveled appearance, does not appear to care for himse lf and is malodorous HENT: Normocephalic, atraumatic, Eyes: EOMI, conjunctiva normal, no discharge. Neck: Normal range of motion, supple, Cardiovascular: S1/2 present, regular rhythm Lungs & Thorax: Speaking in full sentences, bilateral equal chest rise, no tachypnea or increased work of breathing Abdomen: soft, suprapubic catheter Chambers tenderness with mild distention, soiled pants Skin: Warm, dry, no erythema, no rash. [] Extremities: No tenderness, no cyanosis, Neurologic: Alert and oriented X 3, no focal deficits noted, steady gait-gait examining to use restroom Psychologic: Affect normal, judgement normal, mood normal. [] : petros yellow pus aproximately 100cc in leg chambers bag, no clear yellow urine Current Patient Data: Vital Signs: Vital Signs Date Time Temp Pulse Resp B/P (MAP) Pulse Ox O2 Delivery O2 Flow Rate FiO2 02/17/21 21:53 98.0 99 18 131/84 (100) 94 Room Air 98.0 EKG: EKG: [] Radiology/Procedures: Radiology/Procedures: [] Course & Med Decision Making: Course & Med Decision Making Pertinent Labs and Imaging studies reviewed. (See chart for details) On reevaluation patient states "much better," reports relief of pain symptoms. 500 cc of dark yellow urine in Chambers bag, will change to like Chambers per RN. Will start on antibiotics for complicated UTI. Will discharge home with strict ED return precautions were given for fever, clogged Chambers, abdominal pain or flulike symptoms. Encouraged urgent outpatient follow-up with PMD and neurology for definitive management. Life-threatening processes were considered but are low suspicion at this time, given history, physical exam and ED workup. Pt was educated on all prescription medications and adverse effects. All patient's questions were answered and pt was stable at time of discharge. Life/limb-threatening differential includes but is not limited to, trauma, infection, nephrolithiasis, kidney disease, malignancy, obstructive uropathy, BPH, AAA/AVF/aortic dissection, or schistosomiasis. I have spoken with the patient and/or caregivers. I explained the patient's condition, diagnoses and treatment plan based on the information available to me at this time. I have answered the patient and/or caregiver's questions and addressed any concerns. The patient and/or caregivers have a good understanding of patient's diagnosis, condition and treatment plan as can be expected at this point. Vital signs have been stable. Patient's condition is stable and appropriate for discharge from the emergency department. Patient will pursue further outpatient evaluation with primary care physician or other designated or consulting physician as outlined in the discharge instructions. The patient and/or caregivers are agreeable to this plan of care and follow-up instructions have been explained in detail. The patient and/or caregivers have received these instructions in written form and have expressed an understanding of the discharge instructions. The patient and/or caregivers are aware that any significant change of condition or worsening of symptoms should prompt immediate return to this or the closest emergency department or call to 911. Phoebe Disclaimer: [employer] Disclaimer: This electronic medical record was generated, in whole or in part, using a voice recognition dictation system. Departure Departure Impression: Primary Impression: Malfunction of indwelling urinary catheter Additional Impression: UTI (urinary tract infection) Disposition: HOME / SELF CARE / HOMELESS Condition: STABLE Referrals: BRENDA ABRAMS MD (PCP) Follow-up with your primary care physician to repeat u/a OR FOLLOW UP WITH FAMILY MEDICINE: [address] [place] [address] Patient Instructions: Suprapubic Catheter Home Guide, Urinary Tract Infection Additional Instructions: FOLLOW UP WITH UROLOGY: FOR DEFINITIVE MANAGEMENT of suprapubic catheter [facility] [address] [place] [address] [place] [address] [place] [address] [facility] [place] [address] [place], [place] [id number] EMERGENCY DEPARTMENT GENERAL DISCHARGE INSTRUCTIONS Thank you for coming to [facility] Emergency Department (ED) today and trusting us with you care. We trust that you had a positive experience in our Emergency Department. If you wish to speak to the department management, you may call the Director at [phone]. YOUR FOLLOW UP INSTRUCTIONS ARE FOLLOWS: 1. Do you have a private Doctor? If you do not have a private doctor, please ask for a resource list of physicians or clinics that may be able to assist you with follow up care. 2. The Emergency Physicain has interpreted your x-rays. The X-Ray specialist will also review them. If there is a change in the findings, you will be notified in 48 hours when at all possible. 3. A lab test or culture has been done, your results will be reviewed and you will be notified if you need a change in treatment. ADDITIONAL INSTRUCTIONS AND INFORMATION: 1. Your care today has been supervised by a physician who is specially trained in emergency care. Many problems require more than one evaluation for a complete diagnosis and treatment. We recommend that you schedule your follow up appointment as recommended to ensure complete treatment of you illness or injury. If you are unable to obtain follow up care and continue to have a problem, or if your condition worsens, we recommend that you return to the ED. 2. We are not able to safely determine your condition over the phone nor are we able to give sound medical advice over the phone. For these safety reasons, if you call for medical advice we will ask you to come to the ED for further evaluation. 3. If you have any questions regarding these discharge instructions please call the ED at [phone]. SAFETY INFORMATION: In the interest of safety, wellness, and injury prevention; we encourage you to wear your sealbelt, if you smoke; quite smoking, and we encourage family to use a protective helmet for bicycling and other sporting events that present an increased risk for head injury. IF YOUR SYMPTOMS WORSEN OR NEW SYMPTOMS DEVELOP, OR YOU HAVE CONCERNS ABOUT YOUR CONDITION; OR IF YOUR CONDITION WORSENS WHILE YOU ARE WAITING FOR YOUR FOLLOW UP APPOINTMENT; EITHER CONTACT YOUR PRIMARY CARE DOCTOR, THE PHYSICIAN WHOSE NAME AND NUMBER YOU WERE GIVEN, OR RETURN TO THE ED IMMEDIATELY. Scripts Cefpodoxime Proxetil (CEFPODOXIME PROXETIL) 200 Mg Tablet 1 TAB PO BID for 14 Days, #28 TAB Prov: YURIY KENDRICK DO 02/18/21 YURIY KENDRICK DO Feb 17, 2021 23:24
[2021-02-17] MEDS ORDERED: cefTRIAXone IV Push 1 GM VIAL. IVP ONE (23:30)
[2021-02-18 00:03] LABS: BASO # 0.1 x10^3/uL (0.0-0.2); BASO % 1 % (0-3); EOS # 0.1 x10^3/uL (0.0-0.7); EOS % 1 % (0-3); HEMATOCRIT 39.6 % (39.0-53.0); HEMOGLOBIN 13.5 g/dL (13.0-17.5); LYMPH # 1.1 x10^3/uL (1.0-4.8); LYMPH % 13 % (24-48); MEAN CORPUSCULAR HEMOGLOBIN 29 pg (25-35); MEAN CORPUSCULAR HGB CONC 34 g/dL (31-37); MEAN CORPUSCULAR VOLUME 86 fL (79-100); MONO # 0.7 x10^3/uL (0.0-1.1); MONO % 8 % (0-9); NEUT # 6.7 x10^3/uL (1.8-7.7); NEUT % 77 % (31-73); PLATELET COUNT 178 x10^3/uL (140-400); RED CELL DISTRIBUTION WIDTH 13.4 % (11.5-14.5); WHITE BLOOD COUNT 8.7 x10^3/uL (4.0-11.0)
[2021-02-18 00:05] LABS: BILIRUBIN,URINE NEGATIVE (NEG); CLARITY,URINE CLEAR; COLOR,URINE YELLOW; NITRITE,URINE POSITIVE (NEG); PH,URINE 7.5 (<5.0-8.0); PROTEIN,URINE 100 mg/dL (NEG-TRACE); UROBILINOGEN,URINE 0.2 mg/dL (0.2 mg/dL)
[2021-02-18 00:10] LABS: CALCIUM 8.7 mg/dL (8.5-10.1); GFR 70.7; POTASSIUM 3.4 mmol/L (3.5-5.1)
[2021-02-18 00:14] LABS: BACTERIA,URINE MANY /HPF (0-FEW); WBC,URINE TNTC /HPF (0-4)
[2021-02-18 00:17] LABS: ALBUMIN 3.1 g/dL (3.4-5.0); ALBUMIN/GLOBULIN RATIO 0.8 (1.0-1.7); TOTAL BILIRUBIN 0.3 mg/dL (0.2-1.0); TOTAL PROTEIN 6.8 g/dL (6.4-8.2)
[2021-02-18] MEDS ORDERED: CEFP200T PO (00:45)
[2021-02-18 01:30] VITALS: BP 103/52
== END 2021-02-18 01:30 | disposition home or self-care (01) ==
LOC: ER 21:37
DX: T83.018A Breakdown (mechanical) of other urinary catheter, initial encounter (principal); N39.0 Urinary tract infection, site not specified; E11.9 Type 2 diabetes mellitus without complications; I11.9 Hypertensive heart disease without heart failure; I25.10 Atherosclerotic heart disease of native coronary artery without angina pectoris; Y82.8 Other medical devices associated with adverse incidents; Y92.89 Other specified places as the place of occurrence of the external cause
CPT/HCPCS: 36415; 51705; 80053; 81001; 83605; 85025; 87040; 87086; 96374; 99284; J0696; 87077; 87186

== ENCOUNTER 2021-05-16 10:44 | Emergency (ER) | payer BC ==
[~2021-05-16] VITALS: Ht 175.3 cm; Wt 124.0 kg
[2021-05-16 11:17] LABS: BASO % 0 % (0-3); EOS # 0.1 x10^3/uL (0.0-0.7); EOS % 1 % (0-3); HEMATOCRIT 36.1 % (39.0-53.0); HEMOGLOBIN 12.1 g/dL (13.0-17.5); LYMPH # 1.2 x10^3/uL (1.0-4.8); LYMPH % 16 % (24-48); MEAN CORPUSCULAR HEMOGLOBIN 29 pg (25-35); MEAN CORPUSCULAR HGB CONC 33 g/dL (31-37); MEAN CORPUSCULAR VOLUME 88 fL (79-100); MONO # 0.9 x10^3/uL (0.0-1.1); MONO % 12 % (0-9); NEUT # 5.6 x10^3/uL (1.8-7.7); NEUT % 71 % (31-73); PLATELET COUNT 159 x10^3/uL (140-400); RED BLOOD COUNT 4.12 x10^6/uL (4.30-5.70); RED CELL DISTRIBUTION WIDTH 14.3 % (11.5-14.5); WHITE BLOOD COUNT 7.9 x10^3/uL (4.0-11.0)
[2021-05-16 11:24] LABS: CALCIUM 8.3 mg/dL (8.5-10.1); CREATININE 1.2 mg/dL (0.7-1.3); GFR 57.3; POTASSIUM 3.3 mmol/L (3.5-5.1)
[2021-05-16 11:29] LABS: ALBUMIN 3.1 g/dL (3.4-5.0); ALBUMIN/GLOBULIN RATIO 0.8 (1.0-1.7); MAGNESIUM 1.8 mg/dL (1.8-2.4); TOTAL BILIRUBIN 0.7 mg/dL (0.2-1.0); TOTAL PROTEIN 7.2 g/dL (6.4-8.2)
--- NOTE | 2021-05-16 11:30 | PHYS DOC ---
Past Medical History Past Medical History: Cancer, Diabetes-Type II, Heart Disease, Hypertension, Other Additional Past Medical Histor: patient poor historian (YANCY ESCOTO APRN) Past Surgical History: Other Additional Past Surgical Histo: patient is poor historian (YANCY ESCOTO APRN) Smoking Status: Never Smoker Alcohol Use: None Drug Use: None (YANCY ESCOTO APRN) General Adult EDM: Chief Complaint: ABDOMINAL PAIN HPI: HPI: Patient is a 85 year old male with history of diabetes type 2, hypertension, high cholesterol, urinary retention with suprapubic catheter who presents to the ED today from home complaining of a 7 out of 10 generalized abdominal pain, symptoms for 3 days. Patient denies any fever, nausea, vomiting or diarrhea. He states his suprapubic catheter exchanged once a month. Patient is a very poor historian and the son is a very poor historian. (YANCY ESCOTO APRN) Review of Systems: Review of Systems: Constitutional: Denies fever or chills. [] Eyes: Denies change in visual acuity. [] HENT: Denies nasal congestion or sore throat. [] Respiratory: Denies cough or shortness of breath. [] Cardiovascular: Denies chest pain or edema. [] GI: Reports generalized abdominal pain, denies nausea, vomiting, bloody stools or diarrhea. [] : Denies dysuria. [] Musculoskeletal: Denies back pain or joint pain. [] Integument: Denies rash. [] Neurologic: Denies headache, focal weakness or sensory changes. [] Psychiatric: Denies depression or anxiety. [] (YANCY ESCOTO TAR POT WORKER) Heart Score: C/O Chest Pain: N/A Risk Factors: Risk Factors: DM, Current or recent (<one month) smoker, HTN, HLP, family history of CAD, obesity. Risk Scores: Score 0 - 3: 2.5% MACE over next 6 weeks - Discharge Home Score 4 - 6: 20.3% MACE over next 6 weeks - Admit for Clinical Observation Score 7 - 10: 72.7% MACE over next 6 weeks - Early Invasive Strategies (YANCY ESCOTO APRN) Allergies: Allergies: Allergies Coded Allergies Type Severity Reaction Last Updated Verified No Known Drug Allergies 05/16/21 No (MUTUNGA,YANCY M TAR POT WORKER) Physical Exam: PE: Constitutional: Well developed, well nourished, no acute distress, non-toxic appearance. [] HENT: Normocephalic, atraumatic, bilateral external ears normal, oropharynx moist, no oral exudates, nose normal. [] Eyes: PERRLA, EOMI, conjunctiva normal, no discharge. [] Neck: Normal range of motion, no tenderness, supple, no stridor. [] Cardiovascular:Heart rate regular rhythm, no murmur [] Lungs & Thorax: Bilateral breath sounds clear to auscultation [] Abdomen: Old healed midline abdomen surgical incision, bowel sounds normal, soft, diffuse tenderness throughout the abdomen, no masses, no pulsatile masses. [] Suprapubic catheter present Skin: Warm, dry, no erythema, no rash. [] Back: No tenderness, no CVA tenderness. [] Extremities: No tenderness, no cyanosis, no clubbing, ROM intact, no edema. [] Neurologic: Alert and oriented X 3, normal motor function, normal sensory function, no focal deficits noted. [] Psychologic: Affect normal, judgement normal, mood normal. [] (YANCY ESCOTO TAR POT WORKER) Current Patient Data: Labs: Laboratory Tests Test 05/16/21 10:59 White Blood Count 7.9 x10^3/uL (4.0-11.0) Red Blood Count 4.12 x10^6/uL (4.30-5.70) L Hemoglobin 12.1 g/dL (13.0-17.5) L Hematocrit 36.1 % (39.0-53.0) L Mean Corpuscular Volume 88 fL (79-100) Mean Corpuscular Hemoglobin 29 pg (25-35) Mean Corpuscular Hemoglobin Concent 33 g/dL (31-37) Red Cell Distribution Width 14.3 % (11.5-14.5) Platelet Count 159 x10^3/uL (140-400) Neutrophils (%) (Auto) 71 % (31-73) Lymphocytes (%) (Auto) 16 % (24-48) L Monocytes (%) (Auto) 12 % (0-9) H Eosinophils (%) (Auto) 1 % (0-3) Basophils (%) (Auto) 0 % (0-3) Neutrophils # (Auto) 5.6 x10^3/uL (1.8-7.7) Lymphocytes # (Auto) 1.2 x10^3/uL (1.0-4.8) Monocytes # (Auto) 0.9 x10^3/uL (0.0-1.1) Eosinophils # (Auto) 0.1 x10^3/uL (0.0-0.7) Basophils # (Auto) 0.0 x10^3/uL (0.0-0.2) Sodium Level 133 mmol/L (136-145) L Potassium Level 3.3 mmol/L (3.5-5.1) L Chloride Level 100 mmol/L (98-107) Carbon Dioxide Level 25 mmol/L (21-32) Anion Gap 8 (6-14) Blood Urea Nitrogen 18 mg/dL (8-26) Creatinine 1.2 mg/dL (0.7-1.3) Estimated GFR (Cockcroft-Gault) 57.3 BUN/Creatinine Ratio 15 (6-20) Glucose Level 198 mg/dL (70-99) H Calcium Level 8.3 mg/dL (8.5-10.1) L Magnesium Level Pending Total Bilirubin Pending Aspartate Amino Transferase (AST) Pending Alanine Aminotransferase (ALT) Pending Alkaline Phosphatase Pending Total Protein Pending Albumin Pending Albumin/Globulin Ratio Pending Lipase Pending Laboratory Tests 05/16/21 10:59 Laboratory Tests 05/16/21 10:59 Vital Signs: Vital Signs Date Time Temp Pulse Resp B/P (MAP) Pulse Ox O2 Delivery O2 Flow Rate FiO2 05/16/21 10:54 99.3 80 15 184/78 (113) 97 Room Air 99.3 (YANCY ESCOTO TAR POT WORKER) EKG: EK Interpreted by Dr. Omer sinus rhythm HR 92 no STEMI[] (YANCY ESCOTO TAR POT WORKER) Radiology/Procedures: Radiology/Procedures: []PROCEDURE: CT ABD PELV W/ IV CONTRST ONLY EXAM: CT ABDOMEN/PELVIS WITH CONTRAST. HISTORY: Abdominal pain. TECHNIQUE: Computed tomography of the abdomen and pelvis was performed after the intravenous administration of iodinated contrast. One or more of the following individualized dose reduction techniques were utilized for this examination: 1. Automated exposure control. 2. Adjustment of the mA and/or kV according to patient size. 3. Use of iterative reconstruction technique. COMPARISON: 09/27/2019. FINDINGS: Lung windows through the visualized portions of the bases reveal mild interstitial lung disease or scarring in the costophrenic angles. There are calcifications of the aortic valve and coronary arteries. Bone windows reveal no suspicious lesions. Central canal stenosis is at least moderate at L4-5. The distal common duct is packed with stones measuring up to 1.0 cm in diameter. The common duct is dilated to 13 mm. There is mild intrahepatic biliary dilatation. The pancreatic duct is not dilated. The gallbladder is distended but does not appear inflamed. A cyst in the left kidney appears benign and measures 3.8 cm. The right kidney is unremarkable. The spleen, adrenal glands and pancreas are unremarkable. There are no suspicious hepatic lesions. There are no pathologically enlarged lymph nodes. Note is made of an retroaortic left renal vein. A suprapubic catheter decompresses the bladder. There is diffuse bladder wall thickening. Left colonic diverticulosis is mild. There are changes of partial right colectomy. There is no small bowel obstruction. IMPRESSION: 1. Choledocholithiasis throughout the distal common duct. There is mild to moderate intra and extrahepatic biliary dilatation. Ongoing management is recommended. 2. Diffuse bladder wall thickening in the setting of a suprapubic catheter. Correlate for chronic inflammation around obstruction. 3. Aortic valve calcifications. Correlate for aortic stenosis. 4. Mild interstitial lung disease in the bases. Electronically signed by: Blaine Waters MD (05/16/2021 12:28 PM) [id number] DICTATED and SIGNED BY: ALISTAIR WATERS MD DATE: 05/16/21 [id number] PROCEDURE: ABDOMEN LTD EXAM: ULTRASOUND ABDOMEN LIMITED CLINICAL HISTORY: Reason: abd pain, gallstones / Spl. COMPARISON: CT abdomen pelvis from today TECHNIQUE: Limited ultrasound examination of the right upper quadrant of the abdomen was performed. FINDINGS: Pancreas was poorly visualized, portions of the mid pancreas were mildly echogenic but otherwise unremarkable. Head and tail of pancreas were obscured. Liver is within normal limits in size and appearance. There is sludge noted in the gallbladder. Definite gallstones are not identified. Common duct was dilated measuring 9 mm. Right kidney was 14 cm in length without a mass or hydronephrosis. IMPRESSION: 1. Diffuse sludge noted in the gallbladder without definite gallstones or gallbladder wall thickening. 2. Dilated common duct. Electronically signed by: Christoph Tang MD (05/16/2021 2:38 PM) [facility] DICTATED and SIGNED BY: CHRISTOPH TANG MD DATE: 05/16/21 [id number] 0 (YANCY ESCOTO APRN) Course & Med Decision Making: Course & Med Decision Making Pertinent Labs and Imaging studies reviewed. (See chart for details) This 85-year-old male patient presented to the ED today with generalized abdominal pain for 3 days. EKG is negative. 2 troponins were done which were negative. CMP with AST of 106, ALT of 268, ALP of 352. CT of the abdomen and pelvic was done and was noted for possible gallstones. Right upper quadrant ultrasound was done, it was negative for gallstones but noted for gallbladder sludge. Patient's suprapubic catheter was replaced by me successfully, some of this relieved patient's abdominal pain. UA is negative. Patient interested in going home and following up with general surgery and PCP as an outpatient. (YANCY ESCOTO APRN) Dragon Disclaimer: Dragon Disclaimer: This electronic medical record was generated, in whole or in part, using a voice recognition dictation system. (YANCY ESCOTO APRN) Departure Departure Impression: Primary Impression: Abdominal pain Qualified Codes: R10.33 - Periumbilical pain Additional Impression: Transaminitis Disposition: HOME / SELF CARE / HOMELESS Condition: STABLE Referrals: BRENDA ABRAMS MD (PCP) follow up next week CAITLYN SALDANA MD follow up in 1-2 weeks Patient Instructions: Abdominal Pain Additional Instructions: Your evaluated in the emergency room. Please follow-up with your primary care doctor. You also have gallbladder sludge, contact the provided general surgeon and follow-up as an outpatient Attending Signature I have participated in the care of this patient and I have reviewed and agree with all pertinent clinical information above including history, exam, and recommendations. (KEVIN OMER DO) YANCY ESCOTO APRN May 16, 2021 11:30 KEIVN OMER DO May 16, 2021 15:50
[2021-05-16] MEDS ORDERED: IOHEXOL 300 MG/ML 100ML VIAL. IV ONE (12:00)
[2021-05-16] MEDS ORDERED: CONTRAST GIVEN. MC PRN (12:00)
--- NOTE | 2021-05-16 12:31 | RAD ---
EXAM: CT ABDOMEN/PELVIS WITH CONTRAST. HISTORY: Abdominal pain. TECHNIQUE: Computed tomography of the abdomen and pelvis was performed after the intravenous administ ration of iodinated contrast. One or more of the following individualized dose reduction techniques w ere utilized for this examination: 1. Automated exposure control. 2. Adjustment of the mA and/or kV according to patient size. 3. Use of iterative reconstruction technique. COMPARISON: 09/27/2019. FINDINGS: Lung windows through the visualized portions of the bases reveal mild interstitial lung dis ease or scarring in the costophrenic angles. There are calcifications of the aortic valve and coronar y arteries. Bone windows reveal no suspicious lesions. Central canal stenosis is at least moderate at L4-5. The distal common duct is packed with stones measuring up to 1.0 cm in diameter. The common duct is d ilated to 13 mm. There is mild intrahepatic biliary dilatation. The pancreatic duct is not dilated. T he gallbladder is distended but does not appear inflamed. A cyst in the left kidney appears benign and measures 3.8 cm. The right kidney is unremarkable. The s pleen, adrenal glands and pancreas are unremarkable. There are no suspicious hepatic lesions. There are no pathologically enlarged lymph nodes. Note is made of an retroaortic left renal vein. A s uprapubic catheter decompresses the bladder. There is diffuse bladder wall thickening. Left colonic d iverticulosis is mild. There are changes of partial right colectomy. There is no small bowel obstruct ion. IMPRESSION: 1. Choledocholithiasis throughout the distal common duct. There is mild to moderate intra and extrahe patic biliary dilatation. Ongoing management is recommended. 2. Diffuse bladder wall thickening in the setting of a suprapubic catheter. Correlate for chronic inf lammation around obstruction. 3. Aortic valve calcifications. Correlate for aortic stenosis. 4. Mild interstitial lung disease in the bases. Electronically signed by: Blaine Waters MD (05/16/2021 12:28 PM) [id number]
[2021-05-16] MEDS ORDERED: LIDOCAINE 2% JELLY 6ML IN APPLICATOR. MM ONE (13:00)
[2021-05-16 13:18] VITALS: BP 172/76
[2021-05-16 13:57] LABS: BILIRUBIN,URINE NEGATIVE (NEG); CLARITY,URINE CLEAR; COLOR,URINE YELLOW; NITRITE,URINE NEGATIVE (NEG); PROTEIN,URINE NEGATIVE (NEG-TRACE); UROBILINOGEN,URINE 0.2 mg/dL (0.2 mg/dL)
[2021-05-16 14:05] LABS: BACTERIA,URINE 0 /HPF (0-FEW); RBC,URINE 20-40 /HPF (0-2)
--- NOTE | 2021-05-16 14:41 | RAD ---
EXAM: ULTRASOUND ABDOMEN LIMITED CLINICAL HISTORY: Reason: abd pain, gallstones / Spl. COMPARISON: CT abdomen pelvis from today TECHNIQUE: Limited ultrasound examination of the right upper quadrant of the abdomen was performed. FINDINGS: Pancreas was poorly visualized, portions of the mid pancreas were mildly echogenic but otherwise unre markable. Head and tail of pancreas were obscured. Liver is within normal limits in size and appearan ce. There is sludge noted in the gallbladder. Definite gallstones are not identified. Common duct was dilated measuring 9 mm. Right kidney was 14 cm in length without a mass or hydronephrosis. IMPRESSION: 1. Diffuse sludge noted in the gallbladder without definite gallstones or gallbladder wall thickening . 2. Dilated common duct. Electronically signed by: Christoph Tang MD (05/16/2021 2:38 PM) [facility]
[2021-05-16] MEDS ORDERED: POTASSIUM CHLORIDE 20 MEQ TABLET.ER. PO ONE (15:45)
--- NOTE | 2021-05-17 09:45 | NUR ---
IP: Informed pt of negative covid test. Pt verbalized understanding.
== END 2021-05-16 16:29 | disposition home or self-care (01) ==
LOC: ER 10:44
DX: R10.33 Periumbilical pain (principal); Z20.822 Contact with and (suspected) exposure to COVID-19; R74.01 Elevation of levels of liver transaminase levels; I11.9 Hypertensive heart disease without heart failure; E11.9 Type 2 diabetes mellitus without complications; E78.00 Pure hypercholesterolemia, unspecified
CPT/HCPCS: 36415; 74177; 76705; 80053; 81001; 83690; 83735; 83880; 84484; 85025; 87426; 93005; 99285; U0003; U0005

== ENCOUNTER 2021-06-05 05:40 | Emergency (ER) | payer BC ==
[~2021-06-05] VITALS: Ht 170.2 cm; Wt 104.5 kg
[2021-06-05 05:45] VITALS: BP 154/72
[2021-06-05 06:10] LABS: BILIRUBIN,URINE SMALL (NEG); CLARITY,URINE CLOUDY; COLOR,URINE AMBER; NITRITE,URINE POSITIVE (NEG); PH,URINE 5.5 (<5.0-8.0); PROTEIN,URINE 30 mg/dL (NEG-TRACE)
--- NOTE | 2021-06-05 06:10 | ED.ADGEN ---
Past Medical History Past Medical History: Cancer, Diabetes-Type II, Heart Disease, Hypertension, Other Additional Past Medical Histor: patient poor historian Past Surgical History: Other Additional Past Surgical Histo: patient is poor historian Smoking Status: Unknown if ever smoked Alcohol Use: None Drug Use: None General Adult EDM: Chief Complaint: CATHETER CHANGE HPI: HPI: Patient is a 85-year-old male who arrives via EMS complaining of pressure related to his suprapubic catheter. Patient reports he drains his catheter regularly however it would not drain and he experienced increased pressure. Patient reports this has been increasingly more difficult throughout the previous days. Despite this, he denies any fever or medical complaint otherwise. He is awake, alert and nontoxic-appearing. Review of Systems: Review of Systems: Constitutional: Denies fever or chills. [] Eyes: Denies change in visual acuity. [] HENT: Denies nasal congestion or sore throat. [] Respiratory: Denies cough or shortness of breath. [] Cardiovascular: Denies chest pain or edema. [] GI: Denies abdominal pain, nausea, vomiting, bloody stools or diarrhea. [] : Reports suprapubic pressure with decreased drainage from his suprapubic cath eter. Denies dysuria. [] Musculoskeletal: Denies back pain or joint pain. [] Integument: Denies rash. [] Neurologic: Denies headache, focal weakness or sensory changes. [] Endocrine: Denies polyuria or polydipsia. [] Lymphatic: Denies swollen glands. [] Psychiatric: Denies depression or anxiety. [] Allergies: Allergies: Allergies Coded Allergies Type Severity Reaction Last Updated Verified No Known Drug Allergies 05/16/21 No Physical Exam: PE: Constitutional: Well developed, well nourished, no acute distress, non-toxic appearance. [] HENT: Normocephalic, atraumatic, bilateral external ears normal, oropharynx moist, no oral exudates, nose normal. [] Eyes: PERRLA, EOMI, conjunctiva normal, no discharge. [] Neck: Normal range of motion, no tenderness, supple, no stridor. [] Cardiovascular:Heart rate regular rhythm, no murmur [] Lungs & Thorax: Bilateral breath sounds clear to auscultation [] Abdomen: Bowel sounds normal, soft, no tenderness, no masses, no pulsatile masses. [] Skin: Warm, dry, no erythema, no rash. [] Back: No tenderness, no CVA tenderness. [] Extremities: No tenderness, no cyanosis, no clubbing, ROM intact, no edema. [] Neurologic: Alert and oriented X 3, normal motor function, normal sensory function, no focal deficits noted. [] Psychologic: Affect normal, judgement normal, mood normal. [] Current Patient Data: Labs: Laboratory Tests Test 06/05/21 06:00 Urine Collection Type U cath Urine Color Janette Urine Clarity Cloudy Urine pH 5.5 (<5.0-8.0) Urine Specific Comstock 1.020 (1.000-1.030) Urine Protein 30 mg/dL (NEG-TRACE) Urine Glucose (UA) Negative mg/dL (NEG) Urine Ketones (Stick) Negative mg/dL (NEG) Urine Blood Moderate (NEG) Urine Nitrite Positive (NEG) Urine Bilirubin Small (NEG) Urine Urobilinogen Dipstick 1.0 mg/dL (0.2 mg/dL) Urine Leukocyte Esterase Moderate (NEG) Urine RBC 20-40 /HPF (0-2) Urine WBC >40 /HPF (0-4) Urine Bacteria Mod /HPF (0-FEW) Urine Mucus Mod /LPF Vital Signs: Vital Signs Date Time Temp Pulse Resp B/P (MAP) Pulse Ox O2 Delivery O2 Flow Rate FiO2 06/05/21 05:45 98.6 90 13 154/72 (99) 96 Room Air 98.6 EKG: EKG: [] Heart Score: C/O Chest Pain: No Risk Factors: Risk Factors: DM, Current or recent (<one month) smoker, HTN, HLP, family history of CAD, obesity. Risk Scores: Score 0 - 3: 2.5% MACE over next 6 weeks - Discharge Home Score 4 - 6: 20.3% MACE over next 6 weeks - Admit for Clinical Observation Score 7 - 10: 72.7% MACE over next 6 weeks - Early Invasive Strategies Radiology/Procedures: Radiology/Procedures: Patient had a suprapubic catheter exchanged without difficulty by nursing staff. Patient has experienced significant relief in addition to drainage of urine from the new suprapubic catheter. On initial inspection the patient had sediment within the catheter and the urine does appear to be cloudy and concentrated. The patient tolerated the procedure very well. [] Course & Med Decision Making: Course & Med Decision Making Pertinent Labs and Imaging studies reviewed. (See chart for details) [] Dragon Disclaimer: Dragon Disclaimer: This electronic medical record was generated, in whole or in part, using a voice recognition dictation system. Departure Departure Impression: Primary Impression: Farr catheter problem Additional Impression: UTI (urinary tract infection) Disposition: HOME / SELF CARE / HOMELESS Condition: IMPROVED Referrals: BRENDA ABRAMS MD (PCP) Patient Instructions: Catheter-Associated Urinary Tract Infection FAQs - SIEGEL, Suprapubic Catheter Replacement Scripts Cephalexin (KEFLEX) 500 Mg Capsule 1 CAP PO QID, #40 CAP Prov: KEVIN KNOTT DO 06/05/21 Problem Qualifiers KEVIN KNOTT DO Jun 05, 2021 06:10
[2021-06-05 06:20] LABS: BACTERIA,URINE MOD /HPF (0-FEW); RBC,URINE 20-40 /HPF (0-2); WBC,URINE >40 /HPF (0-4)
[2021-06-05] MEDS ORDERED: CEPH500C PO (06:27)
[2021-06-21] MEDS ORDERED: HYDR100T24 PO (17:01)
[2021-06-21] MEDS ORDERED: ESCITALOPRAM OXA5 MG PO (17:05)
== END 2021-06-05 06:47 | disposition home or self-care (01) ==
LOC: ER 05:40
DX: T83.090A Other mechanical complication of cystostomy catheter, initial encounter (principal); N39.0 Urinary tract infection, site not specified; I11.9 Hypertensive heart disease without heart failure; E11.9 Type 2 diabetes mellitus without complications; Y83.3 Surgical operation with formation of external stoma as the cause of abnormal reaction of the patient, or of later complication, without mention of misadventure at the time of the procedure; Y92.89 Other specified places as the place of occurrence of the external cause
CPT/HCPCS: 51705; 81001; 99284

== ENCOUNTER 2021-07-18 15:15 | Observation (INO) | payer BC ==
[~2021-07-18] VITALS: Ht 170.2 cm; Wt 102.7 kg
[~2021-07-18 15:15] MED LIST changes: +ESCITALOPRAM OXA5 MG PO; +HYDR100T24 PO
--- NOTE | 2021-07-18 16:23 | ED.ADGEN ---
Past Medical History Past Medical History: Cancer, Diabetes-Type II, Heart Disease, Hypertension, Other Additional Past Medical Histor: patient poor historian Past Surgical History: Other Additional Past Surgical Histo: patient is poor historian Smoking Status: Former Smoker Alcohol Use: None Drug Use: None General Adult EDM: Chief Complaint: URINE CATHETER PROBLEM HPI: HPI: Patient is a 85-year-old male who arrives by private vehicle to the emergency department seeking catheter reinsertion. Patient has a history of requiring a suprapubic catheter for voiding of urine and over the past 30 minutes the patient has not had a catheter. Patient has a home health nurse who is trying to insert a Farr catheter in his penis. Patient sustained a left great deal of bleeding from that however he denies pain of any kind at this time. Furthermore he denies any medical complaint. He is awake, alert and nontoxic-appearing Review of Systems: Review of Systems: Constitutional: Denies fever or chills. [] Eyes: Denies change in visual acuity. [] HENT: Denies nasal congestion or sore throat. [] Respiratory: Denies cough or shortness of breath. [] Cardiovascular: Denies chest pain or edema. [] GI: Denies abdominal pain, nausea, vomiting, bloody stools or diarrhea. [] : Denies dysuria. [] Musculoskeletal: Denies back pain or joint pain. [] Integument: Denies rash. [] Neurologic: Denies headache, focal weakness or sensory changes. [] Endocrine: Denies polyuria or polydipsia. [] Lymphatic: Denies swollen glands. [] Psychiatric: Denies depression or anxiety. [] Allergies: Allergies: Allergies Coded Allergies Type Severity Reaction Last Updated Verified No Known Drug Allergies 06/26/21 No Physical Exam: PE: Constitutional: Well developed, well nourished, no acute distress, non-toxic appearance. [] HENT: Normocephalic, atraumatic, bilateral external ears normal, oropharynx moist, no oral exudates, nose normal. [] Eyes: PERRLA, EOMI, conjunctiva normal, no discharge. [] Neck: Normal range of motion, no tenderness, supple, no stridor. [] Cardiovascular:Heart rate regular rhythm, no murmur [] Lungs & Thorax: Bilateral breath sounds clear to auscultation [] Abdomen: Bowel sounds normal, soft, no tenderness, no masses, no pulsatile masses. : Patient has evidence of penile trauma with evidence of recent bleeding. Furthermore there is a stoma which appears to be patent in the suprapubic region where the catheter would logically be. [] Skin: Warm, dry, no erythema, no rash. [] Back: No tenderness, no CVA tenderness. [] Extremities: No tenderness, no cyanosis, no clubbing, ROM intact, no edema. [] Neurologic: Alert and oriented X 3, normal motor function, normal sensory function, no focal deficits noted. [] Psychologic: Affect normal, judgement normal, mood normal. [] Please refer to history of present illness. Current Patient Data: Vital Signs: Vital Signs Date Time Temp Pulse Resp B/P (MAP) Pulse Ox O2 Delivery O2 Flow Rate FiO2 07/18/21 16:08 97.9 92 18 209/94 (132) 96 Room Air 97.9 EKG: EKG: [] Heart Score: C/O Chest Pain: No Risk Factors: Risk Factors: DM, Current or recent (<one month) smoker, HTN, HLP, family history of CAD, obesity. Risk Scores: Score 0 - 3: 2.5% MACE over next 6 weeks - Discharge Home Score 4 - 6: 20.3% MACE over next 6 weeks - Admit for Clinical Observation Score 7 - 10: 72.7% MACE over next 6 weeks - Early Invasive Strategies Radiology/Procedures: Radiology/Procedures: [] Course & Med Decision Making: Course & Med Decision Making Pertinent Labs and Imaging studies reviewed. (See chart for details) The patient remains awake, alert and in no acute distress. After multiple attempts of replacing the suprapubic catheter, we were unable to successfully place the device. As such the patient warrants admission to the hospital for further evaluation and IR consultation. I did speak with them and they stated they would not be able to evaluate the patient this evening and they would see the patient in the morning. As such the patient will be admitted to the hospital service for further evaluation and treatment. The patient understands and has agreed to this. He is nontoxic-appearing and awaiting transport to the floor. [] Dragon Disclaimer: Dragon Disclaimer: This electronic medical record was generated, in whole or in part, using a voice recognition dictation system. Departure Departure Impression: Primary Impression: Encounter for replacement of urinary catheter Disposition: ADMITTED INPATIENT Admitting Physician: NUBIA Condition: IMPROVED Referrals: BRENDA ABRAMS MD (PCP) KEVIN KNOTT DO Jul 18, 2021 16:23
[2021-07-18] MEDS ORDERED: ACETAMINOPHEN 325 MG TABLET. PO PRN (17:30)
[2021-07-18] MEDS ORDERED: ONDANSETRON PF 4 MG/2 ML VIAL. IVP PRN (17:30)
[2021-07-18 18:13] LABS: BASO # 0.1 x10^3/uL (0.0-0.2); BASO % 1 % (0-3); EOS # 0.1 x10^3/uL (0.0-0.7); EOS % 1 % (0-3); HEMATOCRIT 38.2 % (39.0-53.0); HEMOGLOBIN 12.6 g/dL (13.0-17.5); LYMPH # 1.7 x10^3/uL (1.0-4.8); LYMPH % 21 % (24-48); MEAN CORPUSCULAR HEMOGLOBIN 29 pg (25-35); MEAN CORPUSCULAR HGB CONC 33 g/dL (31-37); MEAN CORPUSCULAR VOLUME 88 fL (79-100); MONO # 0.7 x10^3/uL (0.0-1.1); MONO % 9 % (0-9); NEUT # 5.7 x10^3/uL (1.8-7.7); NEUT % 69 % (31-73); PLATELET COUNT 205 x10^3/uL (140-400); RED BLOOD COUNT 4.36 x10^6/uL (4.30-5.70); WHITE BLOOD COUNT 8.4 x10^3/uL (4.0-11.0)
[2021-07-18 18:31] LABS: CALCIUM 8.7 mg/dL (8.5-10.1); CREATININE 1.1 mg/dL (0.7-1.3); GFR 63.3; POTASSIUM 4.1 mmol/L (3.5-5.1)
[2021-07-18] MEDS ORDERED: oxyCODONE/APAP 5/325 1 TAB TABLET PO PRN (19:30)
[2021-07-18] MEDS ORDERED: MORPHINE SULFATE 2 MG/ML INJ. IVP PRN (19:30)
--- NOTE | 2021-07-18 20:21 | PDOC1 ---
History and Physical Date of Admission Date of Admission DATE: 07/18/21 TIME: 20:18 Source Source: Caregiver, Chart review, Patient History of Present Illness History of Present Illness MR. Jacobs is a 85-year-old male who has severe sensation of needing to micturate. He has had a suprapubic for 2 yeasrs and it fell out and could not be replaced. Dr. Omer failed x2 to place cath, [facility] and his penis is now bloody he is upset about not being able to releive his bladder Past Medical History Cardiovascular: CAD, HTN, Hyperlipidemia Pulmonary: No pertinent hx GI: Other Heme/Onc: Cancer Psych: No pertinent hx Musculoskeletal: Osteoarthritis Rheumatologic: No pertinent hx Infectious disease: No pertinent hx Renal/: Prostate Ca. Endocrine: Diabetes Past Surgical History Past Surgical History: Colon Resection, Other Family History Family History: Hypertension, Other Social History ALCOHOL: rare Drugs: None Current Problem List Problem List Problems Medical Problems: (1) Encounter for replacement of urinary catheter Status: Acute Current Medications Current Medications Current Medications Ondansetron HCl (Zofran) 4 mg PRN Q8HRS PRN IVP NAUSEA/VOMITING; Start 07/18/21 at 17:30; Stop 07/19/21 at 17:29 Acetaminophen (Tylenol) 650 mg PRN Q4HRS PRN PO FEVER > 100.3'F; Start 07/18/21 at 17:30; Stop 07/19/21 at 17:29 Oxybutynin Chloride (Ditropan) 5 mg [id number] PO ; Start 07/18/21 at 21:00 Oxycodone/ Acetaminophen (Percocet 5/325) 1 tab PRN Q4HRS PRN PO PAIN; Start 07/18/21 at 19:30 Morphine Sulfate (Morphine Sulfate) 2 mg PRN Q2HR PRN IVP PAIN; Start 07/18/21 at 19:30 Active Scripts Active Reported Lexapro (Escitalopram Oxalate) 5 Mg Tablet 1 Tab PO DAILY 30 Days Hydralazine Hcl 100 Mg Tablet 1 Tab PO BID Aspirin 81 Mg Tab.chew 1 Tab PO DAILY Glipizide 5 Mg Tablet 2 Tab PO BID Amlodipine Besylate 5 Mg Tablet 5 Mg PO DAILY Protonix (Pantoprazole Sodium) 20 Mg Tablet.dr 40 Mg PO DAILY Actos (Pioglitazone Hcl) 30 Mg Tablet 30 Mg PO DAILY Lisinopril 40 Mg Tablet 40 Mg PO DAILY Atorvastatin Calcium 20 Mg Tablet 1 Tab PO DAILY Allergies Allergies: Coded Allergies: No Known Drug Allergies (Unverified , 06/26/21) ROS Review of System cant pee General: No: Chills, Night Sweats, Fatigue, Malaise, Appetite, Other PSYCHOLOGICAL ROS: No: Anxiety, Behavioral Disorder, Concentration difficultie, Decreased libido, Depression, Disorientation, Hallucinations, Hostility, Irritablity, Memory difficulties, Mood Swings, Obsessive thoughts, Physical abuse, Sexual abuse, Sleep disturbances, Suicidal ideation, Other Eyes: No Blurry vision, No Decreased vision, No Double vision, No Dry eyes, No Excessive tearing, No Eye Pain, No Itchy Eyes, No Loss of vision, No Photophobia, No Scotomata, No Uses contacts, No Uses glasses, No Other HEENT: No: Heacaches, Visual Changes, Hearing change, Nasal congestion, Nasal discharge, Oral lesions, Sinus pain, Sore Throat, Epistaxis, Sneezing, Snoring, Tinnitus, Vertigo, Vocal changes, Other Hematological and Lymphatic: No: Bleeding Problems, Blood Clots, Blood Transfusions, Brusing, Night Sweats, Pallor, Swollen Lymph Nodes, Other Respiratory: No: Cough, Hemoptysis, Orthopnea, Pleuritic Pain, Shortness of breath, SOB with excertion, Sputum Changes, Stridor, Tachypnea, Wheezing, Other Cardiovascular: No Chest Pain, No Palpitations, No Orthopnea, No Paroxysmal Noc. Dyspnea, No Edema, No Lt Headedness, No Other Gastrointestinal: No Nausea, No Vomiting, No Abdominal Pain, No Diarrhea, No Constipation, No Melena, No Hematochezia, No Other Genitourinary: YES Urgency, YES Pain, YES Other; No Dysuria, No Frequency, No Incontinence, No Hematuria, No Retention, No Discharge, No Flank Pain, No , No , No , No , No , No , No Musculoskeletal: No Gait Disturbance, No Joint Pain, No Joint Stiffness, No Joint Swelling, No Muscle Pain, No Muscular Weakness, No Pain In:, No Swelling In:, No Other Neurological: No Behavorial Changes, No Bowel/Bladder ControlChng, No Confusion, No Dizziness, No Gait Disturbance, No Headaches, No Impaired Coord/balance, No Memory Loss, No Numbness/Tingling, No Seizures, No Speech Problems, No Tremors, No Visual Changes, No Weakness, No Other Skin: No Dry Skin, No Eczema, No Hair Changes, No Lumps, No Mole Changes, No Mottling, No Nail Changes, No Pruritus, No Rash, No Skin Lesion Changes, No Other, No Acne Physical Exam General: Alert, Oriented X3, Cooperative, moderate distress HEENT: PERRLA Lungs: Clear to auscultation Heart: S1S2, RRR Abdomen: Soft (obese, ) Male Genitals Exam: other (uncricumcised, blood, blood in meatus, SP cath site appears closed) Extremities: No cyanosis, No edema Neuro: Normal gait, Sensation intact, Cranial nerves 3-12 NL Psych/Mental Status: Mental status NL, Mood NL Vitals Vitals Vital Signs Date Time Temp Pulse Resp B/P (MAP) Pulse Ox O2 Delivery O2 Flow Rate FiO2 07/18/21 18:05 90 177/78 (111) 96 Room Air 07/18/21 16:08 97.9 18 97.9 Labs Labs Laboratory Tests Test 07/18/21 18:05 White Blood Count 8.4 x10^3/uL (4.0-11.0) Red Blood Count 4.36 x10^6/uL (4.30-5.70) Hemoglobin 12.6 g/dL (13.0-17.5) Hematocrit 38.2 % (39.0-53.0) Mean Corpuscular Volume 88 fL (79-100) Mean Corpuscular Hemoglobin 29 pg (25-35) Mean Corpuscular Hemoglobin Concent 33 g/dL (31-37) Red Cell Distribution Width 15.0 % (11.5-14.5) Platelet Count 205 x10^3/uL (140-400) Neutrophils (%) (Auto) 69 % (31-73) Lymphocytes (%) (Auto) 21 % (24-48) Monocytes (%) (Auto) 9 % (0-9) Eosinophils (%) (Auto) 1 % (0-3) Basophils (%) (Auto) 1 % (0-3) Neutrophils # (Auto) 5.7 x10^3/uL (1.8-7.7) Lymphocytes # (Auto) 1.7 x10^3/uL (1.0-4.8) Monocytes # (Auto) 0.7 x10^3/uL (0.0-1.1) Eosinophils # (Auto) 0.1 x10^3/uL (0.0-0.7) Basophils # (Auto) 0.1 x10^3/uL (0.0-0.2) Sodium Level 135 mmol/L (136-145) Potassium Level 4.1 mmol/L (3.5-5.1) Chloride Level 101 mmol/L (98-107) Carbon Dioxide Level 28 mmol/L (21-32) Anion Gap 6 (6-14) Blood Urea Nitrogen 27 mg/dL (8-26) Creatinine 1.1 mg/dL (0.7-1.3) Estimated GFR (Cockcroft-Gault) 63.3 Glucose Level 175 mg/dL (70-99) Calcium Level 8.7 mg/dL (8.5-10.1) Laboratory Tests Test 07/18/21 18:05 White Blood Count 8.4 x10^3/uL (4.0-11.0) Red Blood Count 4.36 x10^6/uL (4.30-5.70) Hemoglobin 12.6 g/dL (13.0-17.5) Hematocrit 38.2 % (39.0-53.0) Mean Corpuscular Volume 88 fL (79-100) Mean Corpuscular Hemoglobin 29 pg (25-35) Mean Corpuscular Hemoglobin Concent 33 g/dL (31-37) Red Cell Distribution Width 15.0 % (11.5-14.5) Platelet Count 205 x10^3/uL (140-400) Neutrophils (%) (Auto) 69 % (31-73) Lymphocytes (%) (Auto) 21 % (24-48) Monocytes (%) (Auto) 9 % (0-9) Eosinophils (%) (Auto) 1 % (0-3) Basophils (%) (Auto) 1 % (0-3) Neutrophils # (Auto) 5.7 x10^3/uL (1.8-7.7) Lymphocytes # (Auto) 1.7 x10^3/uL (1.0-4.8) Monocytes # (Auto) 0.7 x10^3/uL (0.0-1.1) Eosinophils # (Auto) 0.1 x10^3/uL (0.0-0.7) Basophils # (Auto) 0.1 x10^3/uL (0.0-0.2) Sodium Level 135 mmol/L (136-145) Potassium Level 4.1 mmol/L (3.5-5.1) Chloride Level 101 mmol/L (98-107) Carbon Dioxide Level 28 mmol/L (21-32) Anion Gap 6 (6-14) Blood Urea Nitrogen 27 mg/dL (8-26) Creatinine 1.1 mg/dL (0.7-1.3) Estimated GFR (Cockcroft-Gault) 63.3 Glucose Level 175 mg/dL (70-99) Calcium Level 8.7 mg/dL (8.5-10.1) VTE Prophylaxis Ordered VTE Prophylaxis Devices: Yes VTE Pharmacological Prophylaxi: Yes Assessment/Plan Assessment/Plan acute urinary retention IR to replace SP cath in AM Justifications for Admission Other Justification Choledocholithiasis LARISSA ZEPEDA MD Jul 18, 2021 20:21
[2021-07-18 20:45] LABS: BILIRUBIN,URINE NEGATIVE (NEG); CLARITY,URINE CLEAR; COLOR,URINE YELLOW; NITRITE,URINE NEGATIVE (NEG); PROTEIN,URINE 30 mg/dL (NEG-TRACE); UROBILINOGEN,URINE 0.2 mg/dL (0.2 mg/dL)
[2021-07-18 20:50] LABS: RBC,URINE TNTC /HPF (0-2)
[2021-07-18 20:52] LABS: BACTERIA,URINE MANY /HPF (0-FEW); WBC,URINE >40 /HPF (0-4)
[2021-07-18 22:15] VITALS: BP 145/71
[2021-07-18] MEDS: OXYBUTYNIN CHLORIDE 5 MG TABLET PO SCH (23:32)
[2021-07-19 02:53] VITALS: BP 130/73
[2021-07-19 07:00] VITALS: BP 126/64
[2021-07-19] MEDS: OXYBUTYNIN CHLORIDE 5 MG TABLET PO SCH (08:33)
--- NOTE | 2021-07-19 10:43 | NUR ---
SW following. Discussed with RN, pt from home, room air, cardiac diet. IR to attempt to replace catheter. RN advised no SW needs at this time and anticipates possible discharge home after replacement. SW will continue to follow.
[2021-07-19 11:00] VITALS: BP 126/70
--- NOTE | 2021-07-19 13:09 | DISCH ---
DISCHARGE INSTRUCTIONS Condition on Discharge Condition on Discharge: Stable Activity After Discharge Activity Instructions for Disc: Activity as tolerated Bathing Instructions: Shower-keep dressing dry, No Tub Bath until see Lifting Instructions after Dis: No heavy lifting, No pulling or pushing, Do not lift >10 pounds Exercise Instruction after Dis: Progress as tolerated Driving Instructions after Dis: Do not drive today Weight Bearing Status after Di: As tolerated Diet after Discharge Diet after Discharge: Cardiac, Diabetic No Calorie Level Wound Incision Care Wound/Incision Care: No wound care needed Wound Care Equipment: Dressings Checks after Discharge Checks after discharge: Check blood press - daily, Check blood sugar, ac/hs Contacting the [facility]w after DC Call your doctor for: If your condition worsens Follow-Up Follow up with: Urologist or Dr. Cynthia LAY to replace suprapubic catheter Treatment/Equipment after DC Adaptive Equipment Issued: None CAM WHYTE MD Jul 19, 2021 13:09
--- NOTE | 2021-07-19 17:25 | NUR ---
Pt discharged at 1400 by w/c, to own vehicle. Discharge instructions educated and all belongings sent with pt.
== END 2021-07-19 14:00 | disposition home or self-care (01) ==
LOC: ER 15:15 → ED HOLD 17:00 → 4 NORTH 22:13
PROVIDERS: ADMIT Internal Medicine; ATTEND Internal Medicine
DX: R33.9 Retention of urine, unspecified (principal); I10 Essential (primary) hypertension; I25.10 Atherosclerotic heart disease of native coronary artery without angina pectoris; E11.9 Type 2 diabetes mellitus without complications; E78.5 Hyperlipidemia, unspecified; M19.90 Unspecified osteoarthritis, unspecified site; K80.50 Calculus of bile duct without cholangitis or cholecystitis without obstruction; Z85.46 Personal history of malignant neoplasm of prostate; Z87.891 Personal history of nicotine dependence; Z79.899 Other long term (current) drug therapy; Z98.890 Other specified postprocedural states; Z79.82 Long term (current) use of aspirin
CPT/HCPCS: 36415; 80048; 81001; 85025; 87086; 99284; G0378; G0379

== ENCOUNTER 2021-08-09 08:09 | Outpatient (CLI) | payer BC ==
[2021-08-09] VITALS (7 sets, daily range): BP systolic 92–130; BP diastolic 44–61
[~2021-08-09] VITALS: Ht 170.2 cm; Wt 114.0 kg
[2021-08-09] MEDS ORDERED: NITR0.4T22 SL (08:44)
[2021-08-09 09:04] LABS: PROTHROMBIN TIME PATIENT 12.9 SEC (11.7-14.0)
[2021-08-09] MEDS ORDERED: LIDOCAINE WITH 8.4% SOD BICARB 3 ML DISP.SYRIN. ONE (09:31)
[2021-08-09] MEDS ORDERED: IOHEXOL 240 MG/ML 50ML VIAL. ONE (09:53)
[2021-08-09] MEDS ORDERED: fentaNYL PF VIAL 100 MCG/2 ML VIAL ONE (09:59)
[2021-08-09] MEDS ORDERED: MIDAZOLAM HCL/PF 2 MG/2 ML VIAL. ONE (09:59)
[2021-08-09] MEDS ORDERED: MIDAZOLAM HCL/PF 2 MG/2 ML VIAL. IV ONE (10:15)
[2021-08-09] MEDS ORDERED: IOHEXOL 240 MG/ML 50ML VIAL. IJ ONE (10:15)
[2021-08-09] MEDS ORDERED: fentaNYL PF VIAL 100 MCG/2 ML VIAL IV ONE (10:15)
[2021-08-09] MEDS ORDERED: LIDOCAINE WITH 8.4% SOD BICARB 3 ML DISP.SYRIN. IJ ONE (10:15)
--- NOTE | 2021-08-09 11:29 | NUR ---
Urine remains stoner colored and small clots noted, will continue to flush and monitor for adequate flow. DARSHAN FERRER
--- NOTE | 2021-08-09 12:05 | NUR ---
Dr Ortega over to assess patient's urine output, US used, bladder is empty, flushed with NS with good return. Encouraged patient to increase fluids and monitor output and return to ED for concerns. DARSHAN FERRER
--- NOTE | 2021-08-09 12:16 | NUR ---
pt ambulated and tolerated PO. PIV dc'd. Discharge instructions reviewed with patient. Pt discharged to home in private vehicle with family.
--- NOTE | 2021-08-09 14:44 | RAD ---
Ultrasound and fluoroscopic guided suprapubic catheter placement. 08/09/2021 9:31 AM Clinical Indication: Long-term catheter placement. Patient had interval removal of pre-existing supra pubic catheter. Sedation: Conscious sedation was performed for 31 minutes. Sedation was carried while the patient wa s continually monitored by a member of the Radiology nursing staff. Continual cardiopulmonary monito ring was carried out during the procedure. The patient tolerated the procedure well and there were n o immediate complications. Fluoroscopy time: 1.8 minutes Dose area product: 100 [place] centimeter squared Patient was administered preprocedural antibiotics. Consent: The procedure was explained in its entirety to the patient or the patients designated repres entative by a member of the treatment team, including a discussion of the risks, benefits and commonl y accepted alternatives to the procedure, as well as the expected consequences of no therapy whatsoev er. Discussion of the risks included, but was not limited to, those that are most frequent and thos e that are rare but possibly severe or life-threatening, as well as the possibility of unforeseen com plications. Using ultrasound the bladder was scanned and the indwelling Farr catheter was identified. Saline wa s infused into the Farr catheter to distend the bladder. An 18-gauge angiocatheter needle was advanc ed into the bladder using ultrasound guidance. An ultrasound image was saved with the patient record. Urine/saline was then aspirated from the needle to confirm placement as well. An Amplatz wire was advanced into the bladder under fluoroscopic guidance. Over this wire a 20 mm X-F orce balloon was then advanced with the distal portion of the balloon in the bladder and the proximal portion outside the patient. The balloon was then gradually inflated under fluoroscopic guidance unt il no waist was identified. The balloon was then slightly deflated and the stiff plastic sleeve was a dvanced over the balloon into the bladder. The balloon was then deflated and removed over the wire. N ext a 18 [place] catheter was advanced over the Amplatz wire into the bladder. There was retur n of urine from the catheter. A small amount of contrast was injected to confirm placement within the bladder. 10 cc of sterile saline was then used to inflate the balloon on the catheter. The wire was then withdrawn. A small amount of contrast was reinjected to confirm placement. The catheter was and sutured to the skin. Impression: Successful ultrasound and fluoroscopic-guided placement of a 22 [place] suprapubic catheter. Electronically signed by: Robert Ortega MD (08/09/2021 2:42 PM) [id number]
== END 2021-08-09 12:33 | disposition home or self-care (01) ==
LOC: INTRAD 08:09
PROVIDERS: ATTEND Urology
DX: T83.518A Infection and inflammatory reaction due to other urinary catheter, initial encounter (principal); I25.10 Atherosclerotic heart disease of native coronary artery without angina pectoris; I10 Essential (primary) hypertension; E78.00 Pure hypercholesterolemia, unspecified; E11.9 Type 2 diabetes mellitus without complications; M19.90 Unspecified osteoarthritis, unspecified site; E66.9 Obesity, unspecified; J45.909 Unspecified asthma, uncomplicated; F17.210 Nicotine dependence, cigarettes, uncomplicated; Z86.73 Personal history of transient ischemic attack (TIA), and cerebral infarction without residual deficits; Z79.82 Long term (current) use of aspirin; Z79.899 Other long term (current) drug therapy; Z98.890 Other specified postprocedural states; Z20.822 Contact with and (suspected) exposure to COVID-19
CPT/HCPCS: 36415; 51102; 76942; 77002; 85610; 87426; 99152; 99153; C1726; C1769; C1892; C1894; J2250; J3010; J3490; Q9966